=== PATIENT | female | born 1995 | race Caucasian/White ===

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

== ENCOUNTER 2018-03-24 01:55 | Emergency (ER) | payer MEDICAID ==
[~2018-03-24] VITALS: Ht 175.3 cm; Wt 70.3 kg
--- OUTSIDE RECORDS SUMMARY | 2018-03-24 02:03 | XMS REPORT ---
Author SAMEERA Kinsey [facility] Address [address] [place] [address] Care Team Providers Care Slide Attendant Name Role Phone SAMEERA GIBBS Unavailable PROBLEMS Unknown Problems ALLERGIES Unknown Allergies SOCIAL HISTORY No smoking Hx information available PLAN OF CARE VITAL SIGNS MEDICATIONS Medication Instructions Dosage Frequency Start Date End Date Duration Status PredniSONE 20 mg Orally Once a day 1 tablet 24h Jul, Jul, 05 days Active RESULTS No Results PROCEDURES No Known procedures IMMUNIZATIONS No Known Immunizations
--- OUTSIDE RECORDS SUMMARY | 2018-03-24 02:03 | XMS REPORT ---
Author Author FISH ODOM Organization [facility] Address [address] [place] [address] Care Team Providers Care Rn Clinical Quality Name Role Phone FISH ODOM Unavailable PROBLEMS Unknown Problems ALLERGIES Substance Reaction Event Type Date Status Amoxicillin Unknown Drug Allergy May, Active SOCIAL HISTORY Never Assessed PLAN OF CARE Activity Details Follow Up prn Reason: VITAL SIGNS Height 67.2 in 2016-05-30 Weight 167.4 lbs 2016-05-30 Temperature 100.2 degrees Fahrenheit 2016-05-30 Heart Rate 88 bpm 2016-05-30 Respiratory Rate 18 2016-05-30 BMI 26.06 kg/m2 2016-05-30 Blood pressure systolic 104 mmHg 2016-05-30 Blood pressure diastolic 64 mmHg 2016-05-30 MEDICATIONS Medication Instructions Dosage Frequency Start Date End Date Duration Status Intuniv 3 MG Orally Once a day 1 tablet 24h Active Azithromycin 250 MG Orally Once a day 2 tablets on the first day, then 1 tablet daily for 4 days 24h May, Jun, 5 day(s) Active Dicyclomine HCl 20 MG Orally Four times a day 1 tablet 6h Active RESULTS Name Result Date Reference Range STREP A (IN HOUSE) 2016-05-30 STREP A Positive Control + Lot # [id number] Exp date 10/2017 PROCEDURES Procedure Date Ordered Result Body Site STREP A ASSAY W/OPTIC May 30, 2016 IMMUNIZATIONS No Known Immunizations MEDICAL (GENERAL) HISTORY Type Description Date Surgical History tonsillectomy
--- OUTSIDE RECORDS SUMMARY | 2018-03-24 02:03 | XMS REPORT ---
Author Author BEAN RAMOS [facility] Address [address] [place] [address] Care Team Providers Care Service Sprinkler Helper Name Role Phone BEAN RAMOS Unavailable PROBLEMS Type Condition ICD9-CM Code RRA64-MS Code Onset Dates Condition Status SNOMED Code Problem Attention deficit disorder of childhood with hyperactivity 314.01 Active 049797602 Problem Encounter for long-term (current) use of other medications V58.69 Active 161729761 Problem MENINGOCOCCAL DX V03.89 Active Problem Acute lymphadenitis 683 Active [id number] ALLERGIES Unknown Allergies SOCIAL HISTORY No smoking Hx information available PLAN OF CARE VITAL SIGNS MEDICATIONS Unknown Medications RESULTS No Results PROCEDURES No Known procedures IMMUNIZATIONS No Known Immunizations
--- OUTSIDE RECORDS SUMMARY | 2018-03-24 02:03 | XMS REPORT ---
Author Author FABIANA YEPEZ Organization [facility] Address [address] [place] [address] Care Team Providers Care Awning Craftsperson Name Role Phone FABIANA YEPEZ Unavailable PROBLEMS Unknown Problems ALLERGIES Substance Reaction Event Type Date Status Amoxicillin Unknown Drug Allergy Mar, Active ENCOUNTERS Encounter Location Date Diagnosis [facility] [address] [address] Mar, Encounter for IUD removal Z30.432 and control counseling Z30.09 [place] [address] [address] Jul, 2016 [facility] [address] [address] May, Sore throat J02.9 and Strep throat J02.0 [facility] [address] [address] May, [facility] [address] [place] [id number] [place] [phone] Apr, Aphthous ulcer of pharynx or hypopharynx K12.0 [facility] [address] [id number] October, Encounter for immunization Z23 [facility] [address] [address] 08 Nov, 2014 Right wrist pain 719.43 [facility] [address] [address] 14 Sep, 2014 [facility] [address] [address] Sep, [facility] [address] [facility] [id number] [address] Feb, [facility] [address] [place] [id number] [address] Dec, [facility] [address] [place] [id number] [address] Dec, [facility] [address] [address] Dec, [facility] [address] [id number] [address] Nov, [facility] [address] [address] Nov, [facility] [address] [place] [id number] [address] October, [facility] [address] [id number] [address] October, IMMUNIZATIONS No Known Immunizations SOCIAL HISTORY Never Assessed REASON FOR VISIT Mile Removal- Placed by Dr. Newby in [place] in November of 2014, Pt states that she is having a lot of pain w/ her mile. States she feels like something is falling out constantly. Constant cramping. Painful intercourse. She also states that she has been having seizures ever since she had it placed. She blacks out and when she comes to her hands are stiff. PLAN OF CARE Activity Details Follow Up Needs to establish with PCP Reason: VITAL SIGNS Height 67.2 in 2017-03-13 Weight 185 lbs 2017-03-13 Temperature 98.8 degrees Fahrenheit 2017-03-13 Heart Rate 80 bpm 2017-03-13 Respiratory Rate 18 2017-03-13 BMI 28.80 kg/m2 2017-03-13 Blood pressure systolic 110 mmHg 2017-03-13 Blood pressure diastolic 70 mmHg 2017-03-13 MEDICATIONS Medication Instructions Dosage Frequency Start Date End Date Duration Status Dicyclomine HCl 20 MG Orally Four times a day 1 tablet 6h Active Ortho Tri-Cyclen Lo 0.18/0.215/0.25 MG-25 MCG Orally Once a day 1 tablet 24h Mar, 30 day(s) Active RESULTS No Results PROCEDURES Procedure Date Ordered Result Body Site REMOVE INTRAUTERINE DEVICE Mar 13, 2017 INSTRUCTIONS MEDICATIONS ADMINISTERED No Known Medications MEDICAL (GENERAL) HISTORY Type Description Date Medical History Migraines Medical History Asthma Surgical History tonsillectomy
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
[2018-03-24] MEDS ORDERED: RX-OSELTAMIVIR 75 MG (TAMIFLU) BOX OF 10 PO STA (03:06)
[2018-03-24] MEDS ORDERED: IBUPROFEN TABLET 200 MG TAB PO ONE (03:30)
--- NOTE | 2018-03-24 03:32 | ED General ---
General Chief Complaint: Fever-Adult/Adol Stated Complaint: DIZZY,BODY HURTS,POSS FEVER Nursing Triage Note: possible fever, chills, body aches, nausea since 1800 Nursing Sepsis Screen: Possible Sepsis Risk Source of Information: Patient Exam Limitations: No Limitations History of Present Illness Date Seen by Provider: Mar 24, 2018 Allergies and Home Medications Allergies Coded Allergies: amoxicillin trihydrate (Verified Allergy, Mild, 11/12/11) ibuprofen (Unverified Adverse Reaction, Unknown, 03/24/18) Aggravates IBS Past Mejjlyp-Ewkpey-Etowjs Hx Patient Social History Alcohol Use: Denies Use Recreational Drug Use: No Smoking Status: Never a Smoker 2nd Hand Smoke Exposure: No Recent Foreign Travel: No Contact w/Someone Who Travel: No Recent Infectious Disease Expo: No Recent Hopitalizations: No Immunizations Up To Date Tetanus Booster (TDap): Less than 5yrs Date of Influenza Vaccine: Apr 03, 2013 Seasonal Allergies Seasonal Allergies: No Past Medical History Surgeries: Yes Adenoidectomy, Tonsillectomy Respiratory: No Cardiac: No Neurological: Yes Headaches /Migraines : No 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 Disorders: No Female 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 Disorders: Denies 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 oz. 70.795241vl; 22.89 BMI Method:Stated Progress/Results/Core Measures Suspected Sepsis Recent Fever Within 48 Hours: Yes Infection Criteria Present: Suspected New Infection New/Unexplained Altered Menta: No Sepsis Screen: Possible Sepsis Risk SIRS Temperature:103.1 Pulse: 117 Respiratory Rate: 18 Blood Pressure 122 /85 Mean: 97 Results/Orders Lab Results Laboratory Tests Test 03/24/18 02:59 Range/Units Group A Streptococcus Screen POSITIVE H NEGATIVE Micro Results Microbiology 03/24/18 Influenza Types A,B Antigen (AMPARO) - Final, Complete My Orders Orders - NELLY ESTRELLA MD Influenza A And B Antigens (03/24/18 02:15) Rx-Oseltamivir Caps (Rx-Tamiflu Caps) (03/24/18 03:06) Rapid Strep A Screen (03/24/18 03:20) Ibuprofen Tablet (Motrin Tablet) (03/24/18 03:30) Azithromycin Tablet (Zithromax Tablet) (03/24/18 03:45) Vital Signs/I&O 03/24/18 02:10 Temp 103.1 Pulse 117 Resp 18 B/P (MAP) 122/85 (97) Pulse Ox 97 O2 Delivery Room Air Capillary Refill : Less Than 3 Seconds Blood Pressure Mean: 97 Departure Impression Primary Impression: Flu-like symptoms Additional Impressions: Fever Qualified Codes: R50.81 - Fever presenting with conditions classified elsewhere Strep pharyngitis Disposition: 01 HOME, SELF-CARE Condition: Improved Departure-Patient Inst. Decision time for Depature: 03:29 Referrals: [facility] (PCP/Family) Primary Care Physician Patient Instructions: Flu Add. Discharge Instructions: Drink plenty of clear liquids. Take ibuprofen up to 600 mg every 6 hours as needed for pain or fever. Add Tylenol (acetaminophen) up to 1000 mg every 6 hours as needed for additional pain or fever relief. You may continue breast-feeding. When you feed or hold the baby, wear a mask and exercise frequent hand sanitation until you are free of fever for at least 24 hours. Finish all 10 doses of the Tamiflu. Return to care if symptoms are worsening or if you are not improving as expected over the next couple of days. For treatment of your strep throat complete the azithromycin as prescribed. Take your next dose on Saturday. Dispose of or sanitize toothbrush and any other oral instruments before the fourth dose of antibiotics. All discharge instructions reviewed with patient and/or family. Voiced understanding. Scripts Azithromycin (Azithromycin) 250 Mg Tablet 250 MG PO DAILY, #4 TAB Prov: NELLY ESTRELLA MD 03/24/18 NELLY ESTRELLA MD Mar 24, 2018 03:32
[2018-03-24] MEDS ORDERED: AZITHROMYCIN 250 MG TAB (ZITHROMAX) PO ONE (03:45)
[2018-03-24] MEDS ORDERED: AZIT250T12 PO (03:45)
[2018-03-24 03:46] VITALS: BP 121/78
== END 2018-03-24 03:51 | disposition home or self-care (01) ==
LOC: EDUNIT# 01:55 → ER 02:00
DX: J10.1 Influenza due to other identified influenza virus with other respiratory manifestations (principal); J02.0 Streptococcal pharyngitis; G43.909 Migraine, unspecified, not intractable, without status migrainosus; F90.9 Attention-deficit hyperactivity disorder, unspecified type; Z97.5 Presence of (intrauterine) contraceptive device; Z87.19 Personal history of other diseases of the digestive system; Z88.0 Allergy status to penicillin; Z88.6 Allergy status to analgesic agent; Z90.89 Acquired absence of other organs
CPT/HCPCS: 87430; 87804

== ENCOUNTER 2018-09-14 16:48 | Emergency (ER) | payer MEDICAID ==
[~2018-09-14] VITALS: Ht 172.7 cm; Wt 72.6 kg
[~2018-09-14 16:48] MED LIST changes: +AZIT250T12 PO
--- NOTE | 2018-09-14 17:07 | ED EENT ---
History of Present Illness General Chief Complaint: Eye Problems Stated Complaint: L EYE SWELLING Source: patient Exam Limitations: no limitations History of Present Illness Date Seen by Provider: Sep 14, 2018 Time Seen by Provider: 17:04 Initial Comments 22-year-old female who presents to emergency room with complaints of a bump on her right upper eyelid. She reports that she woke up with this morning. She has tried teabags to the eye but reports this is worse in the swelling. Denies fevers. Denies visual difficulty. Allergies and Home Medications Allergies Coded Allergies: amoxicillin trihydrate (Verified Allergy, Mild, 11/12/11) ibuprofen (Unverified Adverse Reaction, Unknown, 03/24/18) Aggravates IBS Home Medications Azithromycin 250 Mg Tablet, 250 MG PO DAILY Prescribed by: NELLY ABRAHAM on 03/24/18 0345 Past Xcblznr-Xtwhmt-Maupro Hx Patient Social History Alcohol Use: Denies Use Recreational Drug Use: No Smoking Status: Never a Smoker 2nd Hand Smoke Exposure: No Recent Foreign Travel: No Contact w/Someone Who Travel: No Recent Hopitalizations: No Immunizations Up To Date Tetanus Booster (TDap): Less than 5yrs Date of Influenza Vaccine: Apr 03, 2013 Seasonal Allergies Seasonal Allergies: No Past Medical History Surgeries: Yes Adenoidectomy, Tonsillectomy Respiratory: No Cardiac: No Neurological: Yes Headaches /Migraines 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 Disorders: No Female 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 Disorders: 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 oz. 70.183786jr; 22.89 BMI Method:Stated Departure Impression Primary Impression: Hordeolum Qualified Codes: H00.011 - Hordeolum externum right upper eyelid Disposition: 01 HOME, SELF-CARE Condition: Stable/Unchanged Departure-Patient Inst. Decision time for Depature: 17:05 Referrals: [facility] (PCP/Family) Primary Care Physician Patient Instructions: Jonathan (Hordeolum) Add. Discharge Instructions: Use the ophthalmic antibiotic to the right eye 4 times a day for 5 days. Apply warm moist compresses to the eye and massage the area to allow to drain. Practice good hand hygiene. Follow-up with your primary care provider within 1 week for recheck. Return back to the emergency room for worsening symptoms or concerns as needed. All discharge instructions reviewed with patient and/or family. Voiced understanding. SYLWIA SEXTON Sep 14, 2018 17:06
[2018-09-14] MEDS ORDERED: ERYTHROMYCIN OPHTH OINT 1 GM (SINGLE USE) TUBE ONE (17:16)
[2018-09-14 17:27] VITALS: BP 122/70
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
[2018-09-14] MEDS ORDERED: ERYTHROMYCIN OPHTH OINT 1 GM (SINGLE USE) TUBE OP SCH (22:00)
== END 2018-09-14 17:25 | disposition home or self-care (01) ==
LOC: EDUNIT# 16:48 → ER 16:49
DX: H00.011 Hordeolum externum right upper eyelid (principal); G43.909 Migraine, unspecified, not intractable, without status migrainosus; K58.9 Irritable bowel syndrome, unspecified; F98.8 Other specified behavioral and emotional disorders with onset usually occurring in childhood and adolescence; F90.9 Attention-deficit hyperactivity disorder, unspecified type; Z87.19 Personal history of other diseases of the digestive system; Z97.5 Presence of (intrauterine) contraceptive device; Z88.6 Allergy status to analgesic agent; Z88.0 Allergy status to penicillin; Z90.89 Acquired absence of other organs
CPT/HCPCS: 99282

== ENCOUNTER 2020-03-14 17:03 | Emergency (ER) | payer MEDICAID ==
[~2020-03-14] VITALS: Ht 175 cm; Wt 90.7 kg
--- NOTE | 2020-03-14 17:29 | ED Integumentary General ---
General Chief Complaint: Rect Problems Stated Complaint: RECTAL ABSCESS Source: patient Exam Limitations: no limitations History of Present Illness Date Seen by Provider: Mar 14, 2020 Time Seen by Provider: 17:28 Initial Comments Abscess to the left perirectal region for the past 3-4 days no fevers or chills. Has been to health care provider twice for this and told to come back in 2 weeks for incision and drainage she states. On bactrim Timing/Duration: just prior to arrival Severity: moderate Associated Symptoms: denies symptoms Allergies and Home Medications Allergies Coded Allergies: amoxicillin trihydrate (Verified Allergy, Mild, 11/12/11) ibuprofen (Unverified Adverse Reaction, Unknown, 03/24/18) Aggravates IBS Home Medications Azithromycin 250 Mg Tablet, 250 MG PO DAILY Prescribed by: NELLY ABRAHAM on 03/24/18 3331 Patient Home Medication List Home Medication List Reviewed: Yes Review of Systems Review of Systems Constitutional: see HPI; No chills, No fever EENTM: see HPI Respiratory: no symptoms reported Cardiovascular: no symptoms reported 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: no symptoms reported Musculoskeletal: no symptoms reported Skin: see HPI Psychiatric/Neurological: No Symptoms Reported Past Qgasmap-Wrbnyw-Hygjca Hx Patient Social History 2nd Hand Smoke Exposure: No Recent Foreign Travel: No Contact w/Someone Who Travel: No Recent Hopitalizations: No Immunizations Up To Date Tetanus Booster (TDap): Less than 5yrs Date of Influenza Vaccine: Apr 03, 2013 Seasonal Allergies Seasonal Allergies: No Past Medical History Surgeries: Yes Adenoidectomy, Tonsillectomy Respiratory: No Cardiac: No Neurological: Yes Headaches /Migraines 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 Disorders: No Female 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 Disorders: Denies 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 Sexually Transmitted Disease: No 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: No Gastrointestinal: Yes Chronic Constipation, Irritable Bowel Musculoskeletal: Yes (CHRONIC PAIN IN R ANKLE) Endocrine: No HEENT: No Cancer: No Psychosocial: Yes ADD/ADHD Integumentary: No Blood Disorders: No Physical Exam Vital Signs Vital Signs - First Documented 03/14/20 17:28 Temp 37.8 Pulse 114 Resp 20 B/P (MAP) 132/84 (100) Pulse Ox 97 Capillary Refill : General Appearance: WD/WN, no apparent distress Neck: non-tender, full range of motion Respiratory: no respiratory distress, no accessory muscle use Neurologic/Psychiatric: alert, normal mood/affect, oriented x 3, abnormal cer ebellar tests Skin: normal color, warm/dry Skin Problem Location: other (left perianal fluctuant abscess) Skin Problem Character: abscess Progress/Results/Core Measures Results/Orders My Orders Orders - FAMILIA DALTON APRN Wound Culture (03/14/20 17:26) Hydrocodone/Apap 5/325 Tablet (Lortab 5 (03/14/20 17:30) Lidocaine/Epi 2% 1:100,000 (Xylocaine/Ep (03/14/20 17:30) Ceftriaxone For Im Use (Rocephin For Im (03/14/20 17:30) Metronidazole Tablet (Flagyl Tablet) (03/14/20 17:30) Lidocaine 1% Inj 20 Ml (Xylocaine 1% Inj (03/14/20 17:30) Vital Signs/I&O 03/14/20 17:28 Temp 37.8 Pulse 114 Resp 20 B/P (MAP) 132/84 (100) Pulse Ox 97 Departure Communication (Admissions) Area was anesthetized with 1% lidocaine with epinephrine. Incision was then made with 11 blade scalpel. Large amount of purulent terribly foul smelling material was expressed. Loculations were broken up with curved hemostats. Impression Primary Impression: Perianal abscess Disposition: HOME, SELF-CARE Condition: Stable Departure-Patient Inst. Decision time for Depature: 17:49 Referrals: [facility] [place] (PCP/Family) Primary Care Physician S[facility]A TAFOYA BRETT D DO KIDO, TAKAAKI MD Patient Instructions: Anal Abscess and Fistula Add. Discharge Instructions: 1. Add the metronidazole antibiotic to the trimethoprim/sulfamethoxazole antibiotic that you are already on. Take the pain medication as directed and the stool softener as directed. All discharge instructions reviewed with patient and/or family. Voiced understa nding. Scripts Docusate Sodium (Colace) 100 Mg Capsule 100 MG PO BID, #30 CAP Prov: FAMILIA DALTON APRN 03/14/20 Metronidazole (Metronidazole) 500 Mg Tablet 500 MG PO TID, #21 TAB 0 Refills Prov: FAMILIA DALTON APRN 03/14/20 FAMILIA DALTON APRN Mar 14, 2020 17:29
[2020-03-14] MEDS ORDERED: metroNIDAZOLE 500 MG (FLAGYL) TAB PO ONE (17:30)
[2020-03-14] MEDS ORDERED: LIDOCAINE/EPI 2% 1:100,00 (XYLOCAINE) 20 ML VIAL INJ ONE (17:30)
[2020-03-14] MEDS ORDERED: HYDROcodone/APAP 5 MG/325 MG (LORTAB) TAB PO ONE (17:30)
[2020-03-14] MEDS ORDERED: cefTRIAXone 1,000 MG/2.86 ml vial (IM ONLY) IM SCH (17:30)
[2020-03-14] MEDS ORDERED: LIDOCAINE 1% INJ 20 ML 20 ML VIAL INJ ONE (17:30)
[2020-03-14] MEDS ORDERED: METR-145 PO (17:51)
[2020-03-14] MEDS ORDERED: HYDR-3870 PO (17:51)
[2020-03-14] MEDS ORDERED: DOCU-143 PO (17:51)
[2020-03-14 18:15] VITALS: BP 132/71
== END 2020-03-14 18:15 | disposition home or self-care (01) ==
LOC: EDUNIT# 17:03 → ER 17:04
DX: K61.0 Anal abscess (principal); Z88.1 Allergy status to other antibiotic agents; Z88.6 Allergy status to analgesic agent
CPT/HCPCS: 87070; 87077; 87205; 99284

== ENCOUNTER 2021-01-02 21:37 | Emergency (ER) | payer MEDICAID ==
[~2021-01-02] VITALS: Ht 175 cm; Wt 112.0 kg
[~2021-01-02 21:37] MED LIST changes: +DOCU-143 PO; +HYDR-3870 PO; +METR-145 PO
[2021-01-02 21:48] VITALS: BP 129/77
[2021-01-02] MEDS ORDERED: NORE0.3520 (21:52)
--- NOTE | 2021-01-02 22:08 | ED Lower Extremity ---
General Chief Complaint: Laceration Stated Complaint: L FOOT LAC Nursing Triage Note: SKIN AVULSION TO LEFT HEEL, CAUGHT ON DOOR. Source: patient Exam Limitations: no limitations (FAMILIA DALTON APRN) History of Present Illness Date Seen by Provider: Jan 02, 2021 Time Seen by Provider: 22:06 Initial Comments scraped back of left heel on door at [facility]. tdap not up to date Onset: just prior to arrival Severity: mild Pain/Injury Location: left ankle Method of Injury: unknown Modifying Factors: Worse With Movement (FAMILIA DALTON APRN) Allergies and Home Medications Allergies Coded Allergies: amoxicillin trihydrate (Verified Allergy, Mild, 11/12/11) ibuprofen (Unverified Adverse Reaction, Unknown, 03/24/18) Aggravates IBS Patient Home Medication List Home Medication List Reviewed: Yes (FAMILIA DALTON APRN) Review of Systems Constitutional: see HPI EENTM: see HPI Respiratory: no symptoms reported Cardiovascular: no symptoms reported 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: no symptoms reported Musculoskeletal: see HPI Skin: no symptoms reported Psychiatric/Neurological: No Symptoms Reported (FAMILIA DALTON APRN) Past Nvysdlj-Clamoc-Oqjggs Hx Patient Social History Tobacco Use?: No Substance use?: No Alcohol Use?: No Pt feels they are or have been: No (FAMILIA DALTON APRN) Immunizations Up To Date Tetanus Booster (TDap): Less than 5yrs (FAMILIA DALTON APRN) Seasonal Allergies Seasonal Allergies: No (FAMILIA DALTON APRN) Past Medical History Surgery/Hospitalization HX: T/A Surgeries: Yes Adenoidectomy, Tonsillectomy Respiratory: No Cardiac: No Neurological: Yes Headaches /Migraines 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 Disorders: No Female 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 Disorders: Denies 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 oz. 72.139184gh; 36.00 BMI Method:Stated General Appearance: WD/WN, no apparent distress HEENT: PERRL/EOMI, normal ENT inspection Neck: non-tender, full range of motion Respiratory: no respiratory distress, no accessory muscle use Hips: bilateral hip non-tender, bilateral hip normal inspection, bilateral hip normal range of motion Legs: bilateral leg non-tender, bilateral leg normal inspection, bilateral leg normal range of motion Knees: bilateral knee non-tender, bilateral knee normal inspection, bilateral knee normal range of motion Ankles: bilateral ankle non-tender, bilateral ankle normal inspection, bilateral ankle normal range of motion Feet: bilateral foot non-tender, bilateral foot normal inspection, bilateral foot normal range of motion Neurologic/Psychiatric: alert, normal mood/affect, oriented x 3 Skin: normal color, warm/dry minor abrasion left heel (FAMILIA DALTON APRN) Progress/Results/Core Measures Results/Orders Medications Given in ED Current Medications Medications Dose Ordered Sig/Lety Route Start Time Stop Time Status Last Admin Dose Admin Diphtheria/ Tetanus/Acell Pertussis 0.5 ml ONCE ONCE IM 01/02/21 22:15 01/02/21 22:16 DC 01/02/21 22:10 0.5 ML (NELLY ESTRELLA MD) Vital Signs/I&O 01/02/21 21:48 Temp 36.5 Pulse 89 Resp 18 B/P (MAP) 129/77 (94) Pulse Ox 98 O2 Delivery Room Air (NELLY ESTRELLA MD) Blood Pressure Mean: 94 Departure Impression Primary Impression: Abrasion Disposition: 01 HOME, SELF-CARE Condition: Stable Departure-Patient Inst. Decision time for Depature: 22:08 (FAMILIA DALTON APRN) Referrals: [facility] [place] (PCP/Family) Primary Care Physician Patient Instructions: Skin Abrasions ATTENDING PHYSICIAN NOTE: I was physically present as attending physician in the emergency department during the care of this patient, but I was not directly involved in the decision making or delivery of care for this patient. (NELLY ESTRELLA MD) FAMILIA DALTON APRN Jan 02, 2021 22:08 NELLY ESTRELLA MD Jan 03, 2021 06:37
[2021-01-02] MEDS ORDERED: TETANUS,DIPTH,PERTUSS P/F (BOOSTRIX) 0.5 ML VIAL IM ONE (22:15)
== END 2021-01-02 22:21 | disposition home or self-care (01) ==
LOC: EDUNIT# 21:37 → ER 21:38
DX: S90.812A Abrasion, left foot, initial encounter (principal); Z23 Encounter for immunization; W23.0XXA Caught, crushed, jammed, or pinched between moving objects, initial encounter
CPT/HCPCS: 90715

== ENCOUNTER 2021-05-21 18:34 | Emergency (ER) | payer MEDICAID ==
[~2021-05-21] VITALS: Ht 172.7 cm; Wt 113.0 kg
[~2021-05-21 18:34] MED LIST changes: +NORE0.3520 PO
[2021-05-21 19:40] VITALS: BP 123/92
--- NOTE | 2021-05-21 20:16 | ED Cough/URI ---
General Chief Complaint: Cough/Cold/Flu Symptoms Stated Complaint: COUGH/FEVER Nursing Triage Note: PT AMB TO RM 6 W REPORTS OF N/V/D, COUGH, AND CONGESTION. PT A&OX4. Source: patient History of Present Illness Date Seen by Provider: May 21, 2021 Time Seen by Provider: 19:30 Initial Comments PT ARRIVES VIA POV FROM HOME WITH MULTIPLE FAMILY MEMBERS, ALL BEING SEEN FOR SAME ALL BEGAN GETTING SICK AROUND THE SAME TIME PT'S MOTHER IS ALSO HERE, BUT IS NOT BEING SEEN PT, HER 3 Y.O. CHILD AND 21 Y.O. SISTER ALL LIVE IN SAME HOME, ALONG WITH MOM AND MOM'S FEMALE FRIEND + SECOND HAND SMOKE PT BEGAN HAVING SYMPTOMS 2 DAYS AGO C/O COUGH AND CONGESTION ALOT OF NASAL CONGESTION AND CLEAR RUNNY NOSE C/O NAUSEA, NO VOMITING--HAS BEEN EATING AND DRINKING, AND VOIDING NORMALLY C/O DIARRHEA X 3 TODAY C/O SLIGHT BODY ACHES C/O SLIGHT HEADACHE NO KNOWN FEVER NO SORE THROAT NO LOSS OF TASTE OR SMELL NO SHORTNESS OF BREATH HAS NOT TAKEN ANYTHING FOR SYMPTOMS DENIES CHRONIC ILLNESS LMP--1 MONTH AGO, NORMAL. ON OCP'S PT STATES SHE HAS BEEN VACCINATED FOR COVID-19, BUT OTHER FAMILY MEMBERS REPORT THAT PT IS NOT VACCINATED-- THE MOTHER IS THE ONLY ONE WHO HAS BEEN VACCINATED MULTIPLE PEOPLE ALL GOT TOGETHER YESTERDAY, DESPITE MULTIPLE PEOPLE BEING ILL. NONE OF THE OTHERS ARE VACCINATED, AND NO MASKS WERE WORN PCP: [facility] Allergies and Home Medications Allergies Coded Allergies: amoxicillin trihydrate (Verified Allergy, Mild, 11/12/11) ibuprofen (Unverified Adverse Reaction, Unknown, 03/24/18) Aggravates IBS Patient Home Medication List Home Medication List Reviewed: Yes Norethindrone (Norethindrone) 0.35 Mg Tablet, (Reported) Entered as Reported by: ERICH SHARMA on 01/02/212151 Ondansetron (Ondansetron Odt) 4 Mg Tab.rapdis, 4 MG PO Q4H Prescribed by: BRIANNE RUVALCABA on 05/21/212053 Review of Systems Review of Systems Constitutional: no symptoms reported EENTM: see HPI, nose congestion Respiratory: see HPI, cough; No short of breath Cardiovascular: no symptoms reported Gastrointestinal: see HPI; No abdominal pain; diarrhea, nausea; No vomiting 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: no symptoms reported Musculoskeletal: see HPI (BODY ACHES) Skin: no symptoms reported Psychiatric/Neurological: See HPI, Headache Hematologic/Lymphatic: No Symptoms Reported Immunological/Allergic: no symptoms reported Past Lgzzsql-Nspbyp-Kskpuq Hx Patient Social History Tobacco Use?: No Use of E-Cig and/or Vaping dev: No Substance use?: No Alcohol Use?: No Immunizations Up To Date Tetanus Booster (TDap): Less than 5yrs Influenza Vaccine Up-to-Date: Yes; Up-to-Date First/Initial COVID19 Vaccinat: 2020 Second COVID19 Vaccination Clint: 2020 COVID19 Vaccine 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: [employer] Seasonal Allergies Seasonal Allergies: No Past Medical History Surgery/Hospitalization HX: T/A Surgeries: Yes Adenoidectomy, Tonsillectomy Respiratory: No Cardiac: No Neurological: Yes Headaches /Migraines Last Menstrual Period: Apr 26, 2021 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 Disorders: No Female 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 Disorders: Denies Sexually Transmitted Disease: No 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: No Gastrointestinal: Yes Chronic Constipation, Irritable Bowel Musculoskeletal: Yes (CHRONIC PAIN IN R ANKLE) Endocrine: No HEENT: Yes (S/P TONSILLECTOMY) Cancer: No Psychosocial: Yes ADD/ADHD Integumentary: No Blood Disorders: No Physical Exam Vital Signs - First Documented 05/21/21 19:40 Temp 36.4 Pulse 81 Resp 20 B/P (MAP) 123/92 (102) Pulse Ox 99 O2 Delivery Room Air Capillary Refill : Less Than 3 Seconds Height: 5'8.00" Weight: 160lbs. oz. 72.246607gq; 37.00 BMI Method:Stated General Appearance: WD/WN, no apparent distress HEENT: PERRL/EOMI, TMs normal, pharynx normal, other (NASAL CONGESTION AND CLEAR RHINORRHEA) Neck: normal inspection Respiratory: normal breath sounds, no respiratory distress, no accessory muscle use Cardiovascular: regular rate, rhythm, no murmur Gastrointestinal: soft Extremities: normal inspection Neurologic/Psychiatric: manager ccu II-XII nml as tested, no motor/sensory deficits, alert, normal mood/affect, oriented x 3 Skin: normal color, warm/dry Progress/Results/Core Measures Suspected Sepsis SIRS Temperature: Pulse: 81 Respiratory Rate: 20 Blood Pressure 123 /92 Mean: 102 Results/Orders Lab Results Laboratory Tests Test 05/21/21 19:48 Range/Units Influenza Type A (RT-PCR) Not Detected Not Detecte Influenza Type B (RT-PCR) Not Detected Not Detecte SARS-CoV-2 RNA (RT-PCR) Detected H Not Detecte My Orders Orders - BRIANNE RUVALCABA DO Influenza A And B By Pcr (05/21/21 19:46) Covid 19 Inhouse Test (05/21/21 19:46) Vital Signs/I&O 05/21/21 05/21/21 19:40 20:59 Temp 36.4 36.4 Pulse 81 79 Resp 20 18 B/P (MAP) 123/92 (102) Pulse Ox 99 100 O2 Delivery Room Air Room Air Capillary Refill : Less Than 3 Seconds Blood Pressure Mean: 102 Progress Note : Progress Note PLACED IN ISOLATION ROOM PPE WORN AT ALL TIMES COVID-19 TESTING PERFORMED SISTER HAS TESTED + FOR COVID-19 HERE IN ER [facility], HAS HER 3 Y.O. CHILD PT AND FAMILY ADVISED OF NEED FOR QUARANTINE FOR 2 WEEKS NO COUGH NO DYSPNEA NO FEVER NO HYPOXIA NO NAUSEA OR VOMITING OR DIARRHEA PT IS NOT A CANDIDATE FOR MAB AT THIS TIME, DUE TO YOUNG AGE, VERY MILD SYMPTOMS, NO CO-MORBID CONDITIONS OTHER THAN OBESITY. Departure Impression Primary Impression: COVID-19 virus infection Disposition: 01 HOME, SELF-CARE Condition: Stable Departure-Patient Inst. Decision time for Depature: 20:52 Referrals: [facility] (PCP/Family) Primary Care Physician Patient Instructions: COVID-19 (DC), Preventing the Spread of an Infectious Disease Add. Discharge Instructions: TYLENOL AND MOTRIN NEEDED FOR PAIN OR FEVER OVER THE COUNTER MEDICATIONS FOR COUGH AND CONGESTION LOTS OF CLEAR LIQUIDS--WATER, BROTH, JELLO, GATORADE BRATS DIET--BANANAS, RICE, APPLESAUCE, TOAST, SALTINES FOLLOW UP WITH [facility] NEEDED QUARANTINE YOURSELF AND ALL HOUSEHOLD AND CLOSE CONTACTS FOR 2 WEEKS All discharge instructions reviewed with patient and/or family. Voiced understanding. Scripts Ondansetron (Ondansetron Odt) 4 Mg Tab.rapdis 4 MG PO Q4H for Nausea/Vomiting, #10 TAB Prov: BRIANNE RUVALCABA DO 05/21/21 BRIANNE RUVALCABA DO May 21, 2021 20:16
[2021-05-21] MEDS ORDERED: ONDA4TAB11 PO (20:54)
== END 2021-05-21 21:02 | disposition home or self-care (01) ==
LOC: EDUNIT# 18:34 → ER 18:36
DX: U07.1 COVID-19 (principal)
CPT/HCPCS: 87636; 99283

== ENCOUNTER 2021-05-23 16:22 | Emergency (ER) | payer MEDICAID ==
[~2021-05-23] VITALS: Ht 172.7 cm; Wt 107.0 kg
[~2021-05-23 16:22] MED LIST changes: +ONDA4TAB11 PO
--- NOTE | 2021-05-23 16:44 | ED General ---
General Stated Complaint: COVID POSITIVE - VOMITING Source of Information: Patient Exam Limitations: No Limitations (FAMILIA DALTON APRN) History of Present Illness Date Seen by Provider: May 23, 2021 Time Seen by Provider: 16:40 Initial Comments To ER with c/o uncontrollable nausea and vomiting since 05/21/2021. That was also the first day of symptoms. She was seen here at that time and has been given oral antiemetics but denies any improvement with these. No fevers or shortness of breath. Not vaccinated. Timing/Duration: 1-2 Days Severity: Moderate Associated Systoms: Nausea/Vomiting (FAMILIA DALTON APRN) Allergies and Home Medications Allergies Coded Allergies: amoxicillin trihydrate (Verified Allergy, Mild, 11/12/11) ibuprofen (Unverified Adverse Reaction, Unknown, 03/24/18) Aggravates IBS Patient Home Medication List Home Medication List Reviewed: Yes (FAMILIA DALTON APRN) Norethindrone (Norethindrone) 0.35 Mg Tablet, (Reported) Entered as Reported by: ERICH SHARMA on 01/02/212151 Ondansetron (Ondansetron Odt) 4 Mg Tab.rapdis, 4 MG PO Q4H Prescribed by: BRIANNE RUVALCABA on 05/21/212053 Promethazine HCl (Promethazine Tablet) 25 Mg Tablet, 25 MG PO Q8H PRN for NAUSEA/VOMITING Prescribed by: FAMILIA DALTON on 05/23/21 1848 Review of Systems Review of Systems Constitutional: see HPI EENTM: see HPI Respiratory: no symptoms reported Cardiovascular: no symptoms reported Gastrointestinal: nausea, vomiting 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: no symptoms reported Musculoskeletal: no symptoms reported Skin: no symptoms reported Psychiatric/Neurological: No Symptoms Reported Hematologic/Lymphatic: No Symptoms Reported (FAMILIA DALTON APRN) Past Paedtvp-Uqrrsl-Gfzpyl Hx Immunizations Up To Date Tetanus Booster (TDap): Less than 5yrs First/Initial COVID19 Vaccinat: 2020 Second COVID19 Vaccination Clint: 2020 (FAMILIA DALTON APRN) Seasonal Allergies Seasonal Allergies: No (FAMILIA DALTON APRN) Past Medical History Surgery/Hospitalization HX: T/A Surgeries: Yes Adenoidectomy, Tonsillectomy Respiratory: No Cardiac: No Neurological: Yes Headaches /Migraines 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 Disorders: No Female 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 Disorders: Denies Sexually Transmitted Disease: No 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: No Gastrointestinal: Yes Chronic Constipation, Irritable Bowel Musculoskeletal: Yes (CHRONIC PAIN IN R ANKLE) Endocrine: No HEENT: Yes (S/P TONSILLECTOMY) Cancer: No Psychosocial: Yes ADD/ADHD Integumentary: No Blood Disorders: No (FAMILIA DALTON APRN) Physical Exam Vital Signs Vital Signs - First Documented 05/23/21 16:28 Temp 37.0 Pulse 71 Resp 22 B/P (MAP) 137/85 (102) Pulse Ox 97 O2 Delivery Room Air (NELLY ESTRELLA MD) Vital Signs Capillary Refill : (FAMILIA DALTON APRN) Height, Weight, BMI Height: 5'8.00" Weight: 160lbs. oz. [id number]; 37.00 BMI Method:Stated General Appearance: No Apparent Distress, WD/WN, Other (Alert and oriented no distress no accessory muscle use for breathing. Oxygen 97% room air heart rate 69 blood pressure 137/85.) Eyes: Bilateral Eye Normal Inspection, Bilateral Eye PERRL, Bilateral Eye EOMI HEENT: PERRL/EOMI, TMs Normal Respiratory: No Accessory Muscle Use, No Respiratory Distress Cardiovascular: Regular Rate, Rhythm, Normal Peripheral Pulses Gastrointestinal: Normal Bowel Sounds, Non Tender, Soft Extremity: Normal Capillary Refill, Normal Inspection Neurologic/Psychiatric: Alert, Oriented x3 Skin: Normal Color, Warm/Dry (FAMILIA DALTON APRN) Progress/Results/Core Measures Suspected Sepsis SIRS Temperature: Pulse: Respiratory Rate: Laboratory Tests 05/23/21 16:40: White Blood Count 7.2 Blood Pressure / Mean: Laboratory Tests 05/23/21 16:40: Creatinine 0.89, Platelet Count 290, Total Bilirubin 0.5 (FAMILIA DALTON APRN) Results/Orders Lab Results Laboratory Tests Test 05/23/21 16:40 05/23/21 17:28 Range/Units White Blood Count 7.2 4.3-11.0 10^3/uL Red Blood Count 5.10 3.80-5.11 10^6/uL Hemoglobin 14.4 11.5-16.0 g/dL Hematocrit 44 35-52 % Mean Corpuscular Volume 87 80-99 fL Mean Corpuscular Hemoglobin 28 25-34 pg Mean Corpuscular Hemoglobin Concent 33 32-36 g/dL Red Cell Distribution Width 12.8 10.0-14.5 % Platelet Count 290 130-400 10^3/uL Mean Platelet Volume 10.4 9.0-12.2 fL Immature Granulocyte % (Auto) 0 % Neutrophils (%) (Auto) 82 H 42-75 % Lymphocytes (%) (Auto) 13 12-44 % Monocytes (%) (Auto) 4 0-12 % Eosinophils (%) (Auto) 0 0-10 % Basophils (%) (Auto) 0 0-10 % Neutrophils # (Auto) 5.9 1.8-7.8 10^3/uL Lymphocytes # (Auto) 1.0 1.0-4.0 10^3/uL Monocytes # (Auto) 0.3 0.0-1.0 10^3/uL Eosinophils # (Auto) 0.0 0.0-0.3 10^3/uL Basophils # (Auto) 0.0 0.0-0.1 10^3/uL Immature Granulocyte # (Auto) 0.0 0.0-0.1 10^3/uL Sodium Level 142 135-145 MMOL/L Potassium Level 3.2 L 3.6-5.0 MMOL/L Chloride Level 103 98-107 MMOL/L Carbon Dioxide Level 25 21-32 MMOL/L Anion Gap 14 5-14 MMOL/L Blood Urea Nitrogen 8 7-18 MG/DL Creatinine 0.89 0.60-1.30 MG/DL Estimat Glomerular Filtration Rate 79 BUN/Creatinine Ratio 9 Glucose Level 113 H 70-105 MG/DL Calcium Level 9.5 8.5-10.1 MG/DL Corrected Calcium 8.5-10.1 MG/DL Total Bilirubin 0.5 0.1-1.0 MG/DL Aspartate Amino Transf (AST/SGOT) 43 H 5-34 U/L Alanine Aminotransferase (ALT/SGPT) 55 0-55 U/L Alkaline Phosphatase 64 40-136 U/L Total Protein 8.0 6.4-8.2 GM/DL Albumin 4.7 H 3.2-4.5 GM/DL Serum Test, Qualitative NEGATIVE NEGATIVE Urine Color DARK YELLOW Urine Clarity SL CLOUDY Urine pH 6.0 5-9 Urine Specific [place] >=1.030 1.016-1.022 Urine Protein 1+ H NEGATIVE Urine Glucose (UA) NEGATIVE NEGATIVE Urine Ketones 3+ H NEGATIVE Urine Nitrite NEGATIVE NEGATIVE Urine Bilirubin 2+ H NEGATIVE Urine Urobilinogen 0.2 < = 1.0 MG/DL Urine Leukocyte Esterase 2+ H NEGATIVE Urine RBC (Auto) NEGATIVE NEGATIVE Urine RBC NONE /HPF Urine WBC 5-10 H /HPF Urine Squamous Epithelial Cells 10-25 H /HPF Urine Renal Epithelial Cells NONE /HPF Urine Crystals PRESENT H /LPF Urine Amorphous Sediment FEW DANIELA URATES H /LPF Urine Bacteria LARGE H /HPF Urine Casts NONE /LPF Urine Mucus LARGE H /LPF Urine Culture Indicated YES (NELLY ESTRELLA MD) Micro Results Microbiology 05/23/21 Urine Culture - Final, Complete 3 or more isolates Strep, Beta Hemolytic Group B (NELLY ESTRELLA MD) Vital Signs/I&O 05/23/21 05/23/21 16:28 19:00 Temp 37.0 Pulse 71 85 Resp 22 20 B/P (MAP) 137/85 (102) 109/73 Pulse Ox 97 97 O2 Delivery Room Air Room Air (NELLY ESTRELLA MD) Vital Signs/I&O Capillary Refill : (FAMILIA DALTON APRN) Departure Communication (Admissions) I discussed the use of monoclonal antibody infusion, emergency use authorization by FDA, benefits of treatment and alternatives to treatment with this. She would like to proceed with getting it. Ill arrange to have that scheduled. (FAMILIA DALTON APRN) Impression Primary Impression: COVID-19 virus infection Additional Impression: Nausea & vomiting Disposition: 01 HOME, SELF-CARE Condition: Stable Departure-Patient Inst. Decision time for Depature: 18:48 (FAMILIA DALTON APRN) Referrals: [facility] [place]) Primary Care Physician Patient Instructions: COVID-19 ED Add. Discharge Instructions: 1. Hospital pharmacy department will call you to schedule the antibody infusion. Use your ondansetron at home in addition to the prescribed medication tonight which will be promethazine. Scripts Promethazine HCl (Promethazine Tablet) 25 Mg Tablet 25 MG PO Q8H PRN for NAUSEA/VOMITING, #14 TAB 0 Refills Prov: FAMILIA DALTON APRN 05/23/21 ATTENDING PHYSICIAN NOTE: I was physically present as attending physician in the emergency department during the care of this patient, but I was not directly involved in the decision making or delivery of care for this patient. (NELLY ESTRELLA MD) FAMILIA DALTON APRN May 23, 2021 16:44 NELLY ESTRELLA MD May 24, 2021 23:49
[2021-05-23] MEDS ORDERED: PROMETHAZINE INJ 25 MG/ML (PHENERGAN) AMP IVP ONE (16:45)
[2021-05-23] MEDS ORDERED: NS IV 1000 ML 1,000 ML IV SCH (16:45)
[2021-05-23 16:48] LABS: BASOPHILS % (AUTO) 0 % (0-10); EOSINOPHILS % (AUTO) 0 % (0-10); HEMATOCRIT 44 % (35-52); HEMOGLOBIN 14.4 g/dL (11.5-16.0); LYMPHOCYTES % (AUTO) 13 % (12-44); MEAN CORPUSCULAR HEMOGLOBIN 28 pg (25-34); MEAN CORPUSCULAR HGB CONC 33 g/dL (32-36); MEAN CORPUSCULAR VOLUME 87 fL (80-99); MEAN PLATELET VOLUME 10.4 fL (9.0-12.2); MONOCYTES # (AUTO) 0.3 10^3/uL (0.0-1.0); MONOCYTES % (AUTO) 4 % (0-12); NEUTROPHILS # (AUTO) 5.9 10^3/uL (1.8-7.8); NEUTROPHILS % (AUTO) 82 % (42-75); PLATELET COUNT 290 10^3/uL (130-400); WHITE BLOOD COUNT 7.2 10^3/uL (4.3-11.0)
[2021-05-23 17:01] LABS: ALBUMIN 4.7 GM/DL (3.2-4.5); CHLORIDE 103 MMOL/L (98-107); POTASSIUM 3.2 MMOL/L (3.6-5.0); SODIUM 142 MMOL/L (135-145)
[2021-05-23 17:02] LABS: CALCIUM 9.5 MG/DL (8.5-10.1)
[2021-05-23 17:03] LABS: GLUCOSE 113 MG/DL (70-105)
[2021-05-23 17:05] LABS: CARBON DIOXIDE 25 MMOL/L (21-32)
[2021-05-23 17:06] LABS: BILIRUBIN,TOTAL 0.5 MG/DL (0.1-1.0)
[2021-05-23 17:07] LABS: ALKALINE PHOSPHATASE 64 U/L (40-136); CREATININE SERUM 0.89 MG/DL (0.60-1.30); GFR ESTIMATED 79
[2021-05-23 17:08] LABS: BUN/CREATININE RATIO 9
[2021-05-23 17:10] LABS: ALANINE AMINOTRANSFERASE 55 U/L (0-55)
[2021-05-23 17:36] LABS: BILIRUBIN,URINE 2+ (NEGATIVE); CLARITY,URINE SL CLOUDY; COLOR,URINE DARK YELLOW; GLUCOSE, URINE (UA) NEGATIVE (NEGATIVE); KETONES,URINE 3+ (NEGATIVE); LEUKOCYTE ESTERASE ,URINE 2+ (NEGATIVE); NITRITE,URINE NEGATIVE (NEGATIVE); PROTEIN,URINE 1+ (NEGATIVE)
[2021-05-23] MEDS ORDERED: ONDANSETRON 4 MG/2 ML (SDV) Z0FRAN ONE (17:41)
[2021-05-23] MEDS ORDERED: LORazepam INJ 2 MG/ML (ATIVAN) VIAL ONE (17:42)
[2021-05-23 17:47] LABS: AMORPHOUS SEDIMENT,UR FEW AMOR URATES /LPF; BACTERIA,URINE LARGE /HPF
[2021-05-23] MEDS ORDERED: cefTRIAXone 1 GM PRE-MIX 50 ML IV ONE (18:00)
[2021-05-23] MEDS ORDERED: ONDANSETRON 4 MG/2 ML (SDV) Z0FRAN IVP ONE (18:15)
[2021-05-23] MEDS ORDERED: LORazepam INJ 2 MG/ML (ATIVAN) VIAL IVP PRN (18:15)
[2021-05-23] MEDS ORDERED: PROM25TA14 PO (18:48)
[2021-05-23 19:00] VITALS: BP 109/73
== END 2021-05-23 19:00 | disposition home or self-care (01) ==
LOC: EDUNIT# 16:22 → ER 16:24
DX: U07.1 COVID-19 (principal); R11.2 Nausea with vomiting, unspecified
CPT/HCPCS: 36415; 80053; 81000; 84703; 85025; 87088

== ENCOUNTER 2021-05-24 08:29 | Observation (INO) | payer MEDICAID ==
[~2021-05-24] VITALS: Ht 176 cm; Wt 96.7 kg
[~2021-05-24 08:29] MED LIST changes: +PROM25TA14 PO
[2021-05-24] MEDS ORDERED: ONDANSETRON 4 MG/2 ML (SDV) Z0FRAN IVP ONE ×2 (09:00→12:00)
[2021-05-24] MEDS ORDERED: LACTATED RINGERS 1,000 ML IV ONE (09:00)
[2021-05-24 09:01] LABS: BASOPHILS % (AUTO) 0 % (0-10); EOSINOPHILS % (AUTO) 0 % (0-10); HEMATOCRIT 42 % (35-52); HEMOGLOBIN 13.8 g/dL (11.5-16.0); LYMPHOCYTES # (AUTO) 1.4 10^3/uL (1.0-4.0); LYMPHOCYTES % (AUTO) 17 % (12-44); MEAN CORPUSCULAR HEMOGLOBIN 29 pg (25-34); MEAN CORPUSCULAR HGB CONC 33 g/dL (32-36); MEAN CORPUSCULAR VOLUME 87 fL (80-99); MEAN PLATELET VOLUME 10.4 fL (9.0-12.2); MONOCYTES # (AUTO) 0.5 10^3/uL (0.0-1.0); MONOCYTES % (AUTO) 6 % (0-12); NEUTROPHILS # (AUTO) 6.1 10^3/uL (1.8-7.8); NEUTROPHILS % (AUTO) 76 % (42-75); PLATELET COUNT 285 10^3/uL (130-400); WHITE BLOOD COUNT 8.1 10^3/uL (4.3-11.0)
[2021-05-24 09:09] LABS: ALBUMIN 4.4 GM/DL (3.2-4.5); POTASSIUM 3.1 MMOL/L (3.6-5.0)
[2021-05-24 09:10] LABS: CALCIUM 9.3 MG/DL (8.5-10.1)
[2021-05-24 09:12] LABS: TOTAL PROTEIN 7.5 GM/DL (6.4-8.2)
[2021-05-24 09:14] LABS: BILIRUBIN,TOTAL 0.6 MG/DL (0.1-1.0)
[2021-05-24 09:15] LABS: CREATININE SERUM 0.83 MG/DL (0.60-1.30)
[2021-05-24] MEDS ORDERED: NS IV 1000 ML 1,000 ML IV SCH (10:00)
[2021-05-24] MEDS ORDERED: POTASSIUM CL 10MEQ/50ML IVPB 50 ML IV ONE (10:00)
[2021-05-24] MEDS ORDERED: PROMETHAZINE INJ 25 MG/ML (PHENERGAN) AMP IVP ONE (10:15)
[2021-05-24] MEDS ORDERED: IOHEXOL 350 MG/ML 100 ML (OMNIPAQUE 350) VIAL IV ONE (10:15)
[2021-05-24] MEDS ORDERED: fentaNYL INJ 100 MCG/2 ML AMP IVP ONE ×2 (10:15→12:00)
[2021-05-24] MEDS ORDERED: HOLD METFORMIN - RECEIVED CONTRAST 20 ML VIAL IV SCH (10:15)
[2021-05-24] MEDS ORDERED: NS 100 ML (IVPB) BAG IV ONE (10:15)
--- NOTE | 2021-05-24 11:04 | Diagnostic Imaging Report ---
PROCEDURE: CT abdomen and pelvis with contrast. TECHNIQUE: Multiple contiguous axial images were obtained through the abdomen and pelvis after administration of intravenous contrast. Auto Exposure Controls were utilized during the CT exam to meet ALARA standards for radiation dose reduction. All CT scans use one or more of the following dose optimizing techniques: automated exposure control, MA and/or KvP adjustment based on patient size and exam type or iterative reconstruction. INDICATION: Abdominal pain. Vomiting. COVID positive patient. COMPARISON: 09/15/2013 FINDINGS: Included portions of the lung bases are clear. CT ABDOMEN: Normal appendix is identified. Small bowel loops are nondistended. The kidneys, adrenal glands, spleen, pancreas, and liver have a normal CT appearance. There is no loculated fluid collection, free fluid or free air within the abdomen. No abnormal mesenteric or retroperitoneal adenopathy is seen. Osseous structures show no acute abnormalities. CT PELVIS: Urinary bladder is opacified. No calculi are seen within urinary bladder. There is no loculated fluid collection, free fluid, nor free air. Osseous structures show no acute abnormalities. IMPRESSION: 1. No acute abnormalities seen within the abdomen or pelvis. Report was faxed to [facility] by [place] at 11:09AM. Dictated by: Dictated on workstation # [id number]
[2021-05-24] MEDS ORDERED: KETOROLAC 30 MG/ML VIAL IVP ONE (12:00)
--- NOTE | 2021-05-24 13:08 | ED General ---
General Chief Complaint: COVID19 Suspect/Confirmed Stated Complaint: CHILLS,N/V,ANSARI,ABD PAIN Nursing Triage Note: ARRIVED VIA AMB ET STATES SHE IS COVID POSTIVIE AND HAS NOT BEEN ABLE TO KEEP ANYTHING DOWN SINCE SAT AND HAS A HEADACHE. Source of Information: Patient Exam Limitations: No Limitations History of Present Illness Date Seen by Provider: May 24, 2021 Time Seen by Provider: 08:34 Initial Comments This 25-year-old young lady presents to the emergency room with vomiting and abdominal pain that has not responded to antiemetics at home. She tested positive for COVID-19 on May 20 and she believes she has been ill with COVID-19 since May 18. She has not had any monoclonal antibody therapy arranged yet. She is in distress from intractable nausea and vomiting. She seems mildly confused. She also reports headache. She has not been able to keep food or fluid down for a few days. She was not Covid vaccinated. She complains of diffuse myalgia. Allergies and Home Medications Allergies Coded Allergies: amoxicillin trihydrate (Verified Allergy, Mild, 11/12/11) ibuprofen (Unverified Adverse Reaction, Unknown, 03/24/18) Aggravates IBS Patient Home Medication List Home Medication List Reviewed: Yes Norethindrone (Norethindrone) 0.35 Mg Tablet, (Reported) Entered as Reported by: ERICH SHARMA on 01/02/212151 Ondansetron (Ondansetron Odt) 4 Mg Tab.rapdis, 4 MG PO Q4H Prescribed by: BRIANNE RUVALCABA on 05/21/212053 Promethazine HCl (Promethazine Tablet) 25 Mg Tablet, 25 MG PO Q8H PRN for NAUSEA/VOMITING Prescribed by: FAMILIA DALTON on 05/23/21 1848 Review of Systems Review of Systems Constitutional: No fever; weakness EENTM: no symptoms reported Respiratory: cough Cardiovascular: no symptoms reported Gastrointestinal: see HPI 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: no symptoms reported : No Musculoskeletal: see HPI Skin: no symptoms reported Psychiatric/Neurological: No Symptoms Reported Hematologic/Lymphatic: No Symptoms Reported Immunological/Allergic: no symptoms reported Past Cbahocn-Myxrud-Tkuvvq Hx Patient Social History Tobacco Use?: No Smoking Status: Never a Smoker Substance use?: No Alcohol Use?: No Immunizations Up To Date Tetanus Booster (TDap): Less than 5yrs First/Initial COVID19 Vaccinat: 2020 Second COVID19 Vaccination Clint: 2020 Seasonal Allergies Seasonal Allergies: No Past Medical History Surgery/Hospitalization HX: T/A Surgeries: Yes Adenoidectomy, Tonsillectomy Respiratory: No Cardiac: No Neurological: Yes Headaches /Migraines 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 Disorders: No Female 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 Disorders: Denies Sexually Transmitted Disease: No 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: No Gastrointestinal: Yes Chronic Constipation, Irritable Bowel Musculoskeletal: Yes (CHRONIC PAIN IN R ANKLE) Endocrine: No HEENT: Yes (S/P TONSILLECTOMY) Cancer: No Psychosocial: Yes ADD/ADHD Integumentary: No Blood Disorders: No Physical Exam Vital Signs Vital Signs - First Documented 05/24/21 08:45 Temp 36.7 Pulse 78 Resp 16 B/P (MAP) 127/86 (100) Pulse Ox 94 O2 Delivery Room Air Capillary Refill : Less Than 3 Seconds Height, Weight, BMI Height: 5'8.00" Weight: 160lbs. oz. 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 Norm as Tested, Other (Mildly confused) Skin: Normal Color, Warm/Dry Progress/Results/Core Measures Suspected Sepsis SIRS Temperature: Pulse: 78 Respiratory Rate: 16 Laboratory Tests 05/24/21 08:56: White Blood Count 8.1 Blood Pressure 127 /86 Mean: 100 Laboratory Tests 05/24/21 08:56: Creatinine 0.83, Platelet Count 285, Total Bilirubin 0.6 Results/Orders Lab Results Laboratory Tests Test 05/24/21 08:56 Range/Units White Blood Count 8.1 4.3-11.0 10^3/uL Red Blood Count 4.85 3.80-5.11 10^6/uL Hemoglobin 13.8 11.5-16.0 g/dL Hematocrit 42 35-52 % Mean Corpuscular Volume 87 80-99 fL Mean Corpuscular Hemoglobin 29 25-34 pg Mean Corpuscular Hemoglobin Concent 33 32-36 g/dL Red Cell Distribution Width 13.0 10.0-14.5 % Platelet Count 285 130-400 10^3/uL Mean Platelet Volume 10.4 9.0-12.2 fL Immature Granulocyte % (Auto) 0 % Neutrophils (%) (Auto) 76 H 42-75 % Lymphocytes (%) (Auto) 17 12-44 % Monocytes (%) (Auto) 6 0-12 % Eosinophils (%) (Auto) 0 0-10 % Basophils (%) (Auto) 0 0-10 % Neutrophils # (Auto) 6.1 1.8-7.8 10^3/uL Lymphocytes # (Auto) 1.4 1.0-4.0 10^3/uL Monocytes # (Auto) 0.5 0.0-1.0 10^3/uL Eosinophils # (Auto) 0.0 0.0-0.3 10^3/uL Basophils # (Auto) 0.0 0.0-0.1 10^3/uL Immature Granulocyte # (Auto) 0.0 0.0-0.1 10^3/uL Sodium Level 141 135-145 MMOL/L Potassium Level 3.1 L 3.6-5.0 MMOL/L Chloride Level 105 98-107 MMOL/L Carbon Dioxide Level 25 21-32 MMOL/L Anion Gap 11 5-14 MMOL/L Blood Urea Nitrogen 9 7-18 MG/DL Creatinine 0.83 0.60-1.30 MG/DL Estimat Glomerular Filtration Rate 85 BUN/Creatinine Ratio 11 Glucose Level 116 H 70-105 MG/DL Calcium Level 9.3 8.5-10.1 MG/DL Corrected Calcium 9.0 8.5-10.1 MG/DL Total Bilirubin 0.6 0.1-1.0 MG/DL Aspartate Amino Transf (AST/SGOT) 55 H 5-34 U/L Alanine Aminotransferase (ALT/SGPT) 75 H 0-55 U/L Alkaline Phosphatase 59 40-136 U/L C-Reactive Protein High Sensitivity 0.11 0.00-0.50 MG/DL Total Protein 7.5 6.4-8.2 GM/DL Albumin 4.4 3.2-4.5 GM/DL Lipase 37 8-78 U/L Serum Test, Qualitative NEGATIVE NEGATIVE My Orders Orders - NELLY ESTRELLA MD Ed Iv/Invasive Line Start (05/24/21 08:34) Cbc With Automated Diff (05/24/21 08:34) Comprehensive Metabolic Panel (05/24/21 08:34) Hs C Reactive Protein (05/24/21 08:34) Hcg,Qualitative Serum (05/24/21 08:34) Lipase (05/24/21 08:34) Ua Culture If Indicated (05/24/21 08:34) Covid 19 Inhouse Test (05/24/21 08:34) Influenza A And B By Pcr (05/24/21 08:34) Ondansetron Injection (Zofran Injectio (05/24/21 09:00) Lactated Ringers (Lr 1000 Ml Iv Solution (05/24/21 09:00) Potassium Cl 10meq/50ml Ivpb (Kcl 10 Meq (05/24/21 10:00) Ns Iv 1000 Ml (Sodium Chloride 0.9%) (05/24/21 10:00) Promethazine Injection (Phenergan Injec (05/24/21 10:15) Fentanyl Inj (Sublimaze Injection) (05/24/21 10:15) Ct Abdomen/Pelvis W (05/24/21 10:10) Iohexol Injection (Omnipaque 350 Mg/Ml 1 (05/24/21 10:15) Received Contrast (Hold Metformin- Contr (05/24/21 10:15) Ns (Ivpb) (Sodium Chloride 0.9% Ivpb Bag (05/24/21 10:15) Ed Admission (Communication) (05/24/21 11:35) Ketorolac Injection (Toradol Injection) (05/24/21 12:00) Fentanyl Inj (Sublimaze Injection) (05/24/21 12:00) Ondansetron Injection (Zofran Injectio (05/24/21 12:00) Medications Given in ED Current Medications Medications Dose Ordered Sig/Lety Route Start Time Stop Time Status Last Admin Dose Admin Fentanyl Citrate 50 mcg ONCE ONCE IVP 05/24/21 10:15 05/24/21 10:16 DC 05/24/21 10:42 50 MCG Fentanyl Citrate 50 mcg ONCE ONCE IVP 05/24/21 12:00 05/24/21 12:01 DC 05/24/21 12:10 50 MCG Iohexol 100 ml ONCE ONCE IV 05/24/21 10:15 05/24/21 10:16 DC 05/24/21 10:30 100 ML Ketorolac Tromethamine 30 mg ONCE ONCE IVP 05/24/21 12:00 05/24/21 12:01 DC 05/24/21 12:09 30 MG Lactated Ringer's 1,000 ml @ 0 mls/hr Q0M ONCE IV 05/24/21 09:00 05/24/21 09:01 DC 05/24/21 09:15 1,000 MLS/HR Ondansetron HCl 4 mg ONCE ONCE IVP 05/24/21 12:00 05/24/21 12:01 DC 05/24/21 12:12 4 MG Ondansetron HCl 8 mg ONCE ONCE IVP 05/24/21 09:00 05/24/21 09:01 DC 05/24/21 09:15 8 MG Potassium Chloride 50 ml @ 50 mls/hr ONCE ONCE IV 05/24/21 10:00 05/24/21 10:59 DC 05/24/21 10:39 50 MLS/HR Promethazine HCl 25 mg ONCE ONCE IVP 05/24/21 10:15 05/24/21 10:16 DC 05/24/21 10:42 25 MG Sodium Chloride 100 ml ONCE ONCE IV 05/24/21 10:15 05/24/21 10:16 DC 05/24/21 10:30 80 ML Vital Signs/I&O 05/24/21 08:45 Temp 36.7 Pulse 78 Resp 16 B/P (MAP) 127/86 (100) Pulse Ox 94 O2 Delivery Room Air Capillary Refill : Less Than 3 Seconds Blood Pressure Mean: 100 Progress Note : Time: 13:10 Progress Note Patient was hydrated with a liter of LR and Zofran was administered. She had rebound nausea and vomiting which was treated with Phenergan. She still had persistent nausea and vomiting after Phenergan. An additional 4 mg of Zofran was administered. Potassium replacement was initiated with first LR and then a dose of 10 mEq IV. Pain was treated with fentanyl. CT of the abdomen was obtained due to significant abdominal tenderness. She also had emesis with the appearance of stool in the context of no bowel movement for the past 2 days. There was concern for bowel obstruction. CT revealed no acute abnormalities. Pain was further treated with Toradol and a repeat dose of fentanyl. Patient did not think she can manage her symptoms at home. She has had refractory nausea and vomiting despite multiple antiemetic doses. Admission was pursued and Dr. Mckinley accepted admission. Patient may be eligible for monoclonal antibody therapy and this was discussed. Diagnostic Imaging Diagonstic Imaging: CT Plain Films/CT/US/NM/MRI: abdomen, pelvis Comments CT abdomen and pelvis viewed by me and report reviewed. See report below: NAME: [facility] REC#: [id number] PT STATUS: REG ER : 1995 PHYSICIAN: NELLY ESTRELLA MD ADMIT DATE: 05/24/21/ER Draft Date of Exam:05/24/21 CT ABDOMEN/PELVIS W PROCEDURE: CT abdomen and pelvis with contrast. TECHNIQUE: Multiple contiguous axial images were obtained through the abdomen and pelvis after administration of intravenous contrast. Auto Exposure Controls were utilized during the CT exam to meet ALARA standards for radiation dose reduction. All CT scans use one or more of the following dose optimizing techniques: automated exposure control, MA and/or KvP adjustment based on patient size and exam type or iterative reconstruction. INDICATION: Abdominal pain. Vomiting. COVID positive patient. COMPARISON: 09/15/2013 FINDINGS: Included portions of the lung bases are clear. CT ABDOMEN: Normal appendix is identified. Small bowel loops are nondistended. The kidneys, adrenal glands, spleen, pancreas, and liver have a normal CT appearance. There is no loculated fluid collection, free fluid or free air within the abdomen. No abnormal mesenteric or retroperitoneal adenopathy is seen. Osseous structures show no acute abnormalities. CT PELVIS: Urinary bladder is opacified. No calculi are seen within urinary bladder. There is no loculated fluid collection, free fluid, nor free air. Osseous structures show no acute abnormalities. IMPRESSION: 1. No acute abnormalities seen within the abdomen or pelvis. Report was faxed to [facility] by janny at 11:09AM. Dictated on workstation # [id number] Dict: 05/24/21 1053 Trans: 05/24/21 110 JANNY [id number] Interpreted by: MAGAN BELTRAN MD Departure Communication (Admissions) Time/Spoke to Admitting Phy: 11:30 Dr. Mckinley Impression Primary Impression: Intractable nausea and vomiting Additional Impressions: COVID-19 virus infection Hypokalemia Generalized abdominal pain Disposition: ADMITTED INPATIENT Condition: Improved Admissions Decision to Admit Reason: Admit from ER (General) Decision to Admit/Date: May 24, 2021 Time/Decision to Admit Time: 11:30 Departure-Patient Inst. Referrals: [facility] [place] [facility] [place]) Primary Care Physician NELLY ESTRELLA MD May 24, 2021 13:08
[2021-05-24] MEDS ORDERED: NS (IVPB) 100 ML ONE (13:27)
[2021-05-24] MEDS ORDERED: ALPRAZolam 0.25 MG (XANAX) TAB PO PRN (13:30)
[2021-05-24] MEDS ORDERED: diphenhydrAMINE 25 MG TAB (BENADRYL) PO PRN (13:30)
[2021-05-24] MEDS ORDERED: ANTACID SUSP 30 ML UDC (MYLANTA) PO PRN (13:30)
[2021-05-24] MEDS ORDERED: MILK OF MAGNESIA 400 MG/5 ML 30 ML UDC PO PRN (13:30)
[2021-05-24] MEDS ORDERED: MELATONIN 3 MG TABLET PO PRN (13:30)
[2021-05-24] MEDS ORDERED: polyethylene glycoL POWDER 17 GM (MIRALAX) PACK PO PRN (13:30)
[2021-05-24] MEDS ORDERED: CALCIUM CARBONATE 500 MG (TUMS) TAB.CHEW PO PRN (13:30)
[2021-05-24] MEDS ORDERED: ACETAMINOPHEN 325 MG TABLET PO PRN (13:30)
[2021-05-24] MEDS ORDERED: LACTULOSE SYRUP 10GM/15ML (ENULOSE) 30ML UDC PO PRN (13:30)
[2021-05-24] MEDS ORDERED: BISACODYL 10 MG SUPP (DULCOLAX) PR PRN ×2 (13:30)
[2021-05-24] MEDS: NS IV 1000 ML 1,000 ML IV SCH (13:43)
[2021-05-24] MEDS ORDERED: ONDANSETRON 4 MG/2 ML (SDV) Z0FRAN IV PRN (13:45)
[2021-05-24] MEDS ORDERED: diphenhydrAMINE 50 MG/ML INJ (BENADRYL) IV PRN (13:45)
[2021-05-24] MEDS ORDERED: EPINEPHrine INJECTION 1 MG/ML AMP IM PRN (13:45)
[2021-05-24] MEDS ORDERED: ACETAMINOPHEN 500 MG TAB (TYLENOL) PO PRN (13:45)
[2021-05-24] MEDS: ENOXAPARIN 40 MG/0.4 ML (LOVENOX) SYR SC SCH (13:49)
[2021-05-24 13:56] LABS: BILIRUBIN,URINE 1+ (NEGATIVE); CLARITY,URINE CLEAR; COLOR,URINE YELLOW; GLUCOSE, URINE (UA) NEGATIVE (NEGATIVE); KETONES,URINE 3+ (NEGATIVE); LEUKOCYTE ESTERASE ,URINE NEGATIVE (NEGATIVE); NITRITE,URINE NEGATIVE (NEGATIVE); PROTEIN,URINE TRACE (NEGATIVE)
[2021-05-24] MEDS ORDERED: BAMLANIVIMAB 700 MG/ETESEVIMAB 1,400 MG IN NS IV ONE ×3 (14:00)
[2021-05-24 14:12] LABS: BACTERIA,URINE TRACE /HPF; WBC,URINE 0-2 /HPF
[2021-05-24 14:16] VITALS: BP 110/70
[2021-05-24] MEDS: morphine INJ 4 MG/ML 1 ML (VIAL/SYRINGE) IV PRN (14:18)
[2021-05-24] MEDS: ONDANSETRON 4 MG/2 ML (SDV) Z0FRAN IV PRN ×2 (14:18→19:53)
[2021-05-24 15:34] VITALS: BP 117/76
--- NOTE | 2021-05-24 16:15 | History & Physical-Hospitalist ---
History of Present Illness HPI/Chief Complaint CC: Nausea and vomiting HPI: This is a 25yoWF clinic Pt of [facility] who presents to the hospital due to nausea and vomiting, she was just diagnosed with Covid and although she is not hypoxic and CXR was normal, she met criteria for antibody infusion so she will be given that along with IV fluids, potassium supplementation and antiemetics. CT scan was negative since there was a suspicion for bowel obstruction. Source: patient Exam Limitations: clinical condition Date Seen 05/24/21 Time Seen by a Provider: 16:00 Attending Physician Katlin Mckinley DO [facility] Referring Physician Date of Admission May 24, 2021 at 11:37 Home Medications & Allergies Home Medications Reviewed patient Home Medication Reconciliation performed by pharmacy medication reconciliations explosive ordnance disposal technician and/or nursing. Patients Allergies have been reviewed. Allergies Allergies Coded Allergies amoxicillin trihydrate (Verified Allergy, Mild, 11/12/11) ibuprofen (Unverified Adverse Reaction, Unknown, 03/24/18) Aggravates IBS Past Fjwwvgs-Vqyriz-Tkthdx Hx Patient Social History Marrital Status: single Tobacco Use?: No Smoking Status: Never a Smoker Smokeless Tobacco Frequency: Never a User Use of E-Cig and/or Vaping dev: No Substance use?: No Alcohol Use?: No Pt feels they are or have been: No Immunizations Up To Date Date of Influenza Vaccine: Apr 03, 2013 First/Initial COVID19 Vaccinat: END December- Second COVID19 Vaccination Clint: NO Tetanus Booster (TDap): Unknown Seasonal Allergies Seasonal Allergies: No Current Status status: No Advance Directives: No Communicates: Verbally Primary Language: Micronesian Preferred Spoken Language: Micronesian Is interpretation needed?: No Sensory deficits: Vision impairment Implanted or Applied Medical D: None Past Medical History Surgeries: Adenoidectomy, Tonsillectomy Headaches /Migraines Sexually Transmitted Disease: No Chronic Constipation, Irritable Bowel ADD/ADHD Blood Disorders: No Review of Systems Constitutional: see HPI, dizziness, fever, malaise, weakness EENTM: no symptoms reported Respiratory: dyspnea on exertion Cardiovascular: no symptoms reported Gastrointestinal: loss of appetite, nausea, vomiting 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: no symptoms reported Musculoskeletal: no symptoms reported Skin: no symptoms reported Psychiatric/Neurological: No Symptoms Reported All Other Systems Reviewed Negative Unless Noted: Yes Physical Exam Physical Exam Vital Signs Vital Signs - First Documented 05/24/21 08:45 Temp 36.7 Pulse 78 Resp 16 B/P (MAP) 127/86 (100) Pulse Ox 94 O2 Delivery Room Air Capillary Refill : Less Than 3 Seconds Height, Weight, BMI Height: 5'8.00" Weight: 160lbs. oz. 72.584331pl; 31.21 BMI Method:Stated General Appearance: Anxious, Chronically ill, Mild Distress, Other (Maza and ashen) HEENT: PERRL/EOMI, Pharynx Normal Neck: Full Range of Motion, Normal Inspection, Non Tender Respiratory: No Accessory Muscle Use, No Respiratory Distress, Decreased Breath Sounds Cardiovascular: Regular Rate, Rhythm Neurologic/Psychiatric: Alert, Oriented x3, No Motor/Sensory Deficits, Normal M ood/Affect Results Results/Procedures Labs Laboratory Tests 05/24/21 08:56 Patient resulted labs reviewed. Assessment/Plan Admission Diagnosis Assessment: Intractable nausea and vomiting COVID-19 pneumonia without hypoxia meets criteria for antibiotic infusion Elevated BMI 31 Plan: IV fluids Antibiotic infusion Antiemetics Admission Status: Observation Diagnosis/Problems Diagnosis/Problems (1) Intractable nausea and vomiting (2) COVID-19 virus infection Status: Acute KATLIN MCKINLEY DO May 24, 2021 16:15
[2021-05-24] MEDS: PROMETHAZINE INJ 25 MG/ML (PHENERGAN) AMP IM PRN (18:16)
[2021-05-24 19:19] VITALS: BP 110/67
[2021-05-24] MEDS ORDERED: PANTOPRAZOLE 40 MG (PROTONIX) TAB PO SCH (21:15)
[2021-05-24] MEDS ORDERED: PANTOPRAZOLE 40 MG (PROTONIX) TAB PO ONE (21:19)
[2021-05-24] MEDS: DOCUSATE SODIUM 100 MG (COLACE) CAP PO SCH (21:25)
[2021-05-24] MEDS: ACETAMINOPHEN 500 MG TAB (TYLENOL) PO PRN (21:25)
[2021-05-24] MEDS: SENNOSIDES 8.6 MG (SENOKOT) TAB PO SCH (21:25)
[2021-05-24] MEDS: diphenhydrAMINE 50 MG/ML INJ (BENADRYL) IVP PRN (22:37)
[2021-05-25] VITALS: BP 111/70
[2021-05-25] MEDS: NS IV 1000 ML 1,000 ML IV SCH ×2 (02:33→08:36)
[2021-05-25] MEDS: PROMETHAZINE INJ 25 MG/ML (PHENERGAN) AMP IM PRN (02:50)
[2021-05-25 05:06] VITALS: BP 123/78
[2021-05-25] MEDS: ONDANSETRON 4 MG/2 ML (SDV) Z0FRAN IV PRN ×3 (05:24→15:42)
[2021-05-25] MEDS: PANTOPRAZOLE 40 MG (PROTONIX) TAB PO SCH ×2 (05:24→15:42)
[2021-05-25] MEDS: morphine INJ 4 MG/ML 1 ML (VIAL/SYRINGE) IV PRN ×2 (06:11→17:17)
[2021-05-25 06:59] LABS: BASOPHILS % (AUTO) 0 % (0-10); EOSINOPHILS % (AUTO) 0 % (0-10); HEMATOCRIT 38 % (35-52); HEMOGLOBIN 12.1 g/dL (11.5-16.0); LYMPHOCYTES # (AUTO) 1.6 10^3/uL (1.0-4.0); LYMPHOCYTES % (AUTO) 20 % (12-44); MEAN CORPUSCULAR HEMOGLOBIN 28 pg (25-34); MEAN CORPUSCULAR HGB CONC 32 g/dL (32-36); MEAN CORPUSCULAR VOLUME 87 fL (80-99); MEAN PLATELET VOLUME 10.4 fL (9.0-12.2); MONOCYTES # (AUTO) 0.6 10^3/uL (0.0-1.0); MONOCYTES % (AUTO) 7 % (0-12); NEUTROPHILS # (AUTO) 6.1 10^3/uL (1.8-7.8); NEUTROPHILS % (AUTO) 73 % (42-75); PLATELET COUNT 232 10^3/uL (130-400); WHITE BLOOD COUNT 8.3 10^3/uL (4.3-11.0)
[2021-05-25 07:20] LABS: ALBUMIN 3.8 GM/DL (3.2-4.5); BILIRUBIN,TOTAL 0.7 MG/DL (0.1-1.0); CALCIUM 8.7 MG/DL (8.5-10.1); CREATININE SERUM 0.7 MG/DL (0.60-1.30); TOTAL PROTEIN 6.5 GM/DL (6.4-8.2)
[2021-05-25 08:00] VITALS: BP 126/71
[2021-05-25] MEDS ORDERED: ONDA4TAB11 PO (08:29)
[2021-05-25] MEDS ORDERED: MULT-158 PO (08:30)
[2021-05-25] MEDS ORDERED: IBUP-2473 PO (08:30)
[2021-05-25] MEDS: SENNOSIDES 8.6 MG (SENOKOT) TAB PO SCH ×2 (08:37→20:54)
[2021-05-25] MEDS: DOCUSATE SODIUM 100 MG (COLACE) CAP PO SCH ×2 (08:37→20:54)
--- NOTE | 2021-05-25 10:48 | Progress Note - Hospitalist ---
Subjective HPI/CC On Admission Date Seen by Provider: May 25, 2021 Time Seen by Provider: 11:30 CC: Nausea and vomiting HPI: This is a 25yoWF clinic Pt of [facility] who presents to the hospital due to nausea and vomiting, she was just diagnosed with Covid and although she is not hypoxic and CXR was normal, she met criteria for antibody infusion so she will be given that along with IV fluids, potassium supplementation and antiemetics. CT scan was negative since there was a suspicion for bowel obstruction. Subjective/Events-last exam Pt doing well Nausea continues Will place Scopolamine patch and and do Reglan 10mg IV Q6hrs scheduled Overall doing pretty well Replacing potassium since it is 3.0 doing that 40mEq IV Review of Systems General: Fatigue Gastrointestinal: Nausea, Vomiting Objective Exam Vital Signs Vital Signs Date Time Temp Pulse Resp B/P (MAP) Pulse Ox O2 Delivery O2 Flow Rate FiO2 05/26/21 04:00 37.0 60 18 133/82 (99) 96 Room Air Capillary Refill : Less Than 3 Seconds General Appearance: No Apparent Distress, WD/WN, Anxious, Chronically ill Respiratory: Lungs Clear, Normal Breath Sounds Cardiovascular: Regular Rate, Rhythm Neurologic/Psychiatric: Alert, Oriented x3, No Motor/Sensory Deficits, Normal Mood/Affect Results/Procedures Lab Laboratory Tests 05/25/21 06:45 Patient resulted labs reviewed. Assessment/Plan Assessment and Plan Assess & Plan/Chief Complaint Assessment: Intractable nausea and vomiting COVID-19 pneumonia without hypoxia meets criteria for antibody infusion Elevated BMI 31 Episode of hematemesis prompting consult with Dr. BECKMAN Plan: IV fluids Antibody infusion Antiemetics 05/25/2021: Scopolamine patch Reglan scheduled Dr. BECKMAN appreciated Diagnosis/Problems Diagnosis/Problems (1) Intractable nausea and vomiting (2) COVID-19 virus infection Status: Acute COURTNEY MULLINS DO May 25, 2021 10:48
[2021-05-25 12:00] VITALS: BP 131/77
[2021-05-25] MEDS ORDERED: SCOPOLAMINE 1.5 MG (TRANSDERM-SCOP) PATCH TD SCH (12:00)
[2021-05-25] MEDS: ENOXAPARIN 40 MG/0.4 ML (LOVENOX) SYR SC SCH (12:05)
[2021-05-25] MEDS: POTASSIUM CL 10MEQ/50ML IVPB 50 ML IV SCH ×3 (12:05→20:49)
[2021-05-25] MEDS: METOCLOPRAMIDE INJ 10 MG/2 ML (REGLAN) IVP SCH ×3 (12:16→22:48)
[2021-05-25] MEDS ORDERED: SCOPOLAMINE 1.5 MG (TRANSDERM-SCOP) PATCH ONE (12:21)
[2021-05-25 15:59] VITALS: BP 134/83
--- NOTE | 2021-05-25 18:19 | CONSULTATION REPORT ---
DATE OF SERVICE: 05/25/2021 ATTENDING PRIMARY BUSINESS MANAGEMENT CONSULTANT: [facility]. HISTORY OF PRESENT ILLNESS: The patient is a 25-year-old female who presented to the Emergency Department with nausea and vomiting as well as fatigue. She tested positive for SARS COVID 2 05/20/2021, however, believes that she began having symptoms on 05/18/2021. She has not had any monoclonal antibody therapy. She was admitted and during this admission, she will have persistent episodes of nausea and vomiting. PAST MEDICAL HISTORY: Migraine headaches, irritable bowel, constipation, ADHD. PAST SURGICAL HISTORY: Tonsillectomy. ALLERGIES: AMOXICILLIN, IBUPROFEN. MEDICATIONS: Norethindrone 0.35 mg daily, Zofran p.r.n., promethazine p.r.n. SOCIAL HISTORY: Negative smoke, negative alcohol. FAMILY HISTORY: Noncontributory. VITAL SIGNS: Temperature 35.9, blood pressure 131/77, pulse 70, respirations 18, pulse ox 96% on room air. REVIEW OF SYSTEMS: A well-nourished female, currently in no acute distress. She does have intermittent episodes of nausea; however, not as bad as in the past. She does not report any hematemesis nor coffee-ground emesis. She does not recall any dark tarry stools or red blood per rectum. No fever, chills; however, has been fatigued for the past several days. No recent inadvertent weight loss. PHYSICAL EXAMINATION: CHEST: Few scattered rales bilaterally. HEART: Regular, no murmurs. EXTREMITIES: No lower extremity edema, negative Homans sign. HEENT: No scleral icterus. NECK: No cervical lymphadenopathy. ABDOMEN: Soft, nontender, nondistended. SKIN: Warm, dry. LABORATORY DATA: WBC 8.3, hemoglobin 12.1, hematocrit 31, platelets 232. BUN 8, creatinine 0.70, total bilirubin 0.7. ASSESSMENT AND PLAN: A 25-year-old female with SARS COVID 2 with a constellation of symptoms including fatigue, myalgia as well as nausea and vomiting. A CT scan of the abdomen was performed, which did not show any abnormalities. Her white count is also normal. We feel that this is a part of her constellation of symptoms related to her coronavirus infection. She is currently on Protonix 40 mg b.i.d., which we will convert to IV and recommend to slowly advance diet as tolerated and to continue with antiemetics as necessary. There is a possibility that her symptoms may be mediated by her gallbladder as well and will order an ultrasound. We feel that she does not need any endoscopy at this time because of the risk prohibitive nature of doing procedures with individuals with symptomatic covid. Job ID: [id number] DocumentID: [id number] Dictated Date: 05/25/2021 15:28:04 Harvest Worker Fruit Date: 05/25/2021 16:00:48 Dictated By: KATERIN BECKMAN MD MTDD
[2021-05-25 19:26] VITALS: BP 115/73
[2021-05-26] VITALS: BP 129/82
[2021-05-26] MEDS: ONDANSETRON 4 MG/2 ML (SDV) Z0FRAN IV PRN ×3 (01:41→18:06)
[2021-05-26] MEDS: diphenhydrAMINE 50 MG/ML INJ (BENADRYL) IVP PRN (01:41)
[2021-05-26 04:00] VITALS: BP 133/82
[2021-05-26] MEDS: METOCLOPRAMIDE INJ 10 MG/2 ML (REGLAN) IVP SCH ×3 (05:09→18:06)
[2021-05-26 06:58] LABS: BASOPHILS % (AUTO) 0 % (0-10); EOSINOPHILS % (AUTO) 0 % (0-10); HEMATOCRIT 37 % (35-52); LYMPHOCYTES # (AUTO) 1.9 10^3/uL (1.0-4.0); LYMPHOCYTES % (AUTO) 22 % (12-44); MEAN CORPUSCULAR HEMOGLOBIN 28 pg (25-34); MEAN CORPUSCULAR HGB CONC 32 g/dL (32-36); MEAN CORPUSCULAR VOLUME 86 fL (80-99); MEAN PLATELET VOLUME 11.2 fL (9.0-12.2); MONOCYTES # (AUTO) 0.5 10^3/uL (0.0-1.0); MONOCYTES % (AUTO) 6 % (0-12); NEUTROPHILS # (AUTO) 6.1 10^3/uL (1.8-7.8); NEUTROPHILS % (AUTO) 71 % (42-75); PLATELET COUNT 242 10^3/uL (130-400); WHITE BLOOD COUNT 8.6 10^3/uL (4.3-11.0)
[2021-05-26 07:21] LABS: ALBUMIN 3.9 GM/DL (3.2-4.5); BILIRUBIN,TOTAL 0.7 MG/DL (0.1-1.0); CALCIUM 8.8 MG/DL (8.5-10.1); CREATININE SERUM 0.72 MG/DL (0.60-1.30); POTASSIUM 3.1 MMOL/L (3.6-5.0); TOTAL PROTEIN 6.4 GM/DL (6.4-8.2)
[2021-05-26] MEDS: DOCUSATE SODIUM 100 MG (COLACE) CAP PO SCH ×2 (07:50→19:22)
[2021-05-26] MEDS: SENNOSIDES 8.6 MG (SENOKOT) TAB PO SCH ×2 (07:50→19:22)
[2021-05-26 08:00] VITALS: BP 131/80
[2021-05-26] MEDS: ACETAMINOPHEN 500 MG TAB (TYLENOL) PO PRN (08:49)
[2021-05-26] MEDS: ALPRAZolam 0.25 MG (XANAX) TAB PO PRN (08:49)
[2021-05-26] MEDS: PANTOPRAZOLE 40 MG (PROTONIX) VIAL IV SCH (08:49)
--- NOTE | 2021-05-26 10:52 | Progress Note - Hospitalist ---
Subjective HPI/CC On Admission Date Seen by Provider: May 26, 2021 Time Seen by Provider: 11:00 CC: Nausea and vomiting HPI: This is a 25yoWF clinic Pt of [facility] who presents to the hospital due to nausea and vomiting, she was just diagnosed with Covid and although she is not hypoxic and CXR was normal, she met criteria for antibody infusion so she will be given that along with IV fluids, potassium supplementation and antiemetics. CT scan was negative since there was a suspicion for bowel obstruction. Subjective/Events-last exam Patient still with nausea and vomiting Ultrasound performed ordered by Dr. BECKMAN Patient appears to be stable from a Covid perspective No pain reported Review of Systems Gastrointestinal: Nausea, Vomiting Objective Exam Vital Signs Vital Signs Date Time Temp Pulse Resp B/P (MAP) Pulse Ox O2 Delivery O2 Flow Rate FiO2 05/26/21 16:34 37.0 50 18 131/80 (97) 97 Room Air Capillary Refill : Less Than 3 Seconds General Appearance: No Apparent Distress, WD/WN, Anxious, Chronically ill Respiratory: Lungs Clear, Normal Breath Sounds Cardiovascular: Regular Rate, Rhythm Neurologic/Psychiatric: Alert, Oriented x3, No Motor/Sensory Deficits, Normal Mood/Affect Results/Procedures Lab Laboratory Tests 05/26/21 06:32 Patient resulted labs reviewed. Assessment/Plan Assessment and Plan Assess & Plan/Chief Complaint Assessment: Intractable nausea and vomiting COVID-19 pneumonia without hypoxia meets criteria for antibody infusion Elevated BMI 31 Episode of hematemesis prompting consult with Dr. BECKMAN Plan: IV fluids Antibody infusion Antiemetics 05/25/2021: Scopolamine patch Reglan scheduled Dr. BECKMAN appreciated 05/26/2021: Ultrasound Antiemetics Diagnosis/Problems Diagnosis/Problems (1) Intractable nausea and vomiting (2) COVID-19 virus infection Status: Acute COURTNEY MULLINS DO May 26, 2021 10:52
[2021-05-26 12:00] VITALS: BP 107/67
--- NOTE | 2021-05-26 12:33 | Diagnostic Imaging Report ---
PROCEDURE: US Abdomen, limited. TECHNIQUE: Multiple realtime grayscale images were obtained over the abdomen in various projections. INDICATION: COVID positive. Nausea and vomiting. EXAMINATION: Ultrasound abdomen 05/26/2021 FINDINGS: The liver appears unremarkable. No masses or intrahepatic biliary dilatation appreciated. Common duct is normal in size. Gallbladder unremarkable with no pericholecystic fluid, gallbladder wall thickening or cholelithiasis. Visualized pancreas, aorta and IVC unremarkable. Right kidney is normal in size with no hydronephrosis. There is no ascites. IMPRESSION: 1. Unremarkable right upper quadrant sonogram. Dictated by: Dictated on workstation # [id number]
[2021-05-26] MEDS: POTASSIUM CL 10MEQ/50ML IVPB 50 ML IV SCH ×5 (13:13→22:18)
[2021-05-26] MEDS: ENOXAPARIN 40 MG/0.4 ML (LOVENOX) SYR SC SCH (13:13)
[2021-05-26 16:34] VITALS: BP 131/80
[2021-05-26] MEDS ORDERED: NS IV 500 ML 500 ML ONE (19:43)
[2021-05-26] MEDS: NS IV 500 ML 500 ML IV SCH (20:03)
[2021-05-26 20:17] VITALS: BP 123/79
[2021-05-27] VITALS (8 sets, daily range): BP systolic 106–130; BP diastolic 64–77
[2021-05-27] MEDS: METOCLOPRAMIDE INJ 10 MG/2 ML (REGLAN) IVP SCH ×5 (00:01→23:40)
[2021-05-27] MEDS: POTASSIUM CL 10MEQ/50ML IVPB 50 ML IV SCH ×3 (00:01→02:32)
[2021-05-27] MEDS: diphenhydrAMINE 50 MG/ML INJ (BENADRYL) IVP PRN (01:24)
--- NOTE | 2021-05-27 06:06 | Progress Note - Hospitalist ---
Subjective HPI/CC On Admission Date Seen by Provider: May 27, 2021 Time Seen by Provider: 10:00 CC: Nausea and vomiting HPI: This is a 25yoWF clinic Pt of [facility] who presents to the hospital due to nausea and vomiting, she was just diagnosed with Covid and although she is not hypoxic and CXR was normal, she met criteria for antibody infusion so she will be given that along with IV fluids, potassium supplementation and antiemetics. CT scan was negative since there was a suspicion for bowel obstruction. Subjective/Events-last exam Patient a bit better Nausea and vomiting continue Drinking a lot better Check meds and labs Review of Systems Gastrointestinal: Nausea, Vomiting Objective Exam Vital Signs Vital Signs Date Time Temp Pulse Resp B/P (MAP) Pulse Ox O2 Delivery O2 Flow Rate FiO2 05/27/21 15:58 36.8 56 18 106/64 (78) 94 Room Air Capillary Refill : Less Than 3 Seconds General Appearance: No Apparent Distress, WD/WN, Chronically ill, Obese Respiratory: Lungs Clear, Normal Breath Sounds Cardiovascular: Regular Rate, Rhythm Neurologic/Psychiatric: Alert, Oriented x3, No Motor/Sensory Deficits, Normal Mood/Affect Results/Procedures Lab Laboratory Tests 05/27/21 06:15 Patient resulted labs reviewed. Assessment/Plan Assessment and Plan Assess & Plan/Chief Complaint Assessment: Intractable nausea and vomiting COVID-19 pneumonia without hypoxia meets criteria for antibody infusion Elevated BMI 31 Episode of hematemesis prompting consult with Dr. BECKMAN Plan: IV fluids Antibody infusion Antiemetics 05/25/2021: Scopolamine patch Reglan scheduled Dr. BECKMAN appreciated 05/26/2021: Ultrasound Antiemetics 05/27/2021: Patient doing better Diagnosis/Problems Diagnosis/Problems (1) Intractable nausea and vomiting (2) COVID-19 virus infection Status: Acute COURTNEY MULLINS DO May 27, 2021 06:06
[2021-05-27 06:39] LABS: BASOPHILS % (AUTO) 0 % (0-10); EOSINOPHILS % (AUTO) 0 % (0-10); HEMATOCRIT 39 % (35-52); LYMPHOCYTES # (AUTO) 1.8 10^3/uL (1.0-4.0); LYMPHOCYTES % (AUTO) 18 % (12-44); MEAN CORPUSCULAR HEMOGLOBIN 28 pg (25-34); MEAN CORPUSCULAR HGB CONC 33 g/dL (32-36); MEAN CORPUSCULAR VOLUME 85 fL (80-99); MONOCYTES # (AUTO) 0.6 10^3/uL (0.0-1.0); MONOCYTES % (AUTO) 6 % (0-12); NEUTROPHILS # (AUTO) 7.6 10^3/uL (1.8-7.8); NEUTROPHILS % (AUTO) 74 % (42-75); PLATELET COUNT 261 10^3/uL (130-400); WHITE BLOOD COUNT 10.3 10^3/uL (4.3-11.0)
[2021-05-27 06:41] LABS: ALBUMIN 3.9 GM/DL (3.2-4.5); POTASSIUM 3.3 MMOL/L (3.6-5.0)
[2021-05-27 06:43] LABS: CALCIUM 8.7 MG/DL (8.5-10.1)
[2021-05-27 06:44] LABS: TOTAL PROTEIN 6.5 GM/DL (6.4-8.2)
[2021-05-27 06:46] LABS: BILIRUBIN,TOTAL 0.8 MG/DL (0.1-1.0)
[2021-05-27 06:47] LABS: CREATININE SERUM 0.66 MG/DL (0.60-1.30)
[2021-05-27] MEDS: PANTOPRAZOLE 40 MG (PROTONIX) VIAL IV SCH (08:27)
[2021-05-27] MEDS: ONDANSETRON 4 MG/2 ML (SDV) Z0FRAN IV PRN ×2 (08:33→13:35)
[2021-05-27] MEDS: DOCUSATE SODIUM 100 MG (COLACE) CAP PO SCH ×2 (09:00→23:18)
[2021-05-27] MEDS: SENNOSIDES 8.6 MG (SENOKOT) TAB PO SCH ×2 (09:00→23:18)
[2021-05-27] MEDS ORDERED: MAGNESIUM 1 GM/100 ML IVPB 100 ML IV ONE (11:45)
[2021-05-27] MEDS: ENOXAPARIN 40 MG/0.4 ML (LOVENOX) SYR SC SCH (12:43)
[2021-05-27] MEDS: NS IV 500 ML 500 ML IV SCH (13:34)
[2021-05-27] MEDS: ALPRAZolam 0.25 MG (XANAX) TAB PO PRN (13:38)
[2021-05-27] MEDS ORDERED: ALPRAZolam 1 MG (XANAX) TAB PO PRN (13:45)
[2021-05-28 04:14] VITALS: BP 132/74
[2021-05-28] MEDS: METOCLOPRAMIDE INJ 10 MG/2 ML (REGLAN) IVP SCH ×2 (05:48→12:23)
--- NOTE | 2021-05-28 06:58 | Progress Note - Hospitalist ---
Subjective HPI/CC On Admission Date Seen by Provider: May 28, 2021 CC: Nausea and vomiting HPI: This is a 25yoWF clinic Pt of [facility] who presents to the hospital due to nausea and vomiting, she was just diagnosed with Covid and although she is not hypoxic and CXR was normal, she met criteria for antibody infusion so she will be given that along with IV fluids, potassium supplementation and antiemetics. CT scan was negative since there was a suspicion for bowel obstruction. Objective Exam Vital Signs Vital Signs Date Time Temp Pulse Resp B/P (MAP) Pulse Ox O2 Delivery O2 Flow Rate FiO2 05/28/21 12:47 36.8 66 16 116/72 (87) 96 Room Air Capillary Refill : Less Than 3 Seconds Results/Procedures Lab Laboratory Tests 05/28/21 08:38 Patient resulted labs reviewed. Assessment/Plan Assessment and Plan Assess & Plan/Chief Complaint Assessment: Intractable nausea and vomiting COVID-19 pneumonia without hypoxia meets criteria for antibody infusion Elevated BMI 31 Episode of hematemesis prompting consult with Dr. BECKMAN Plan: IV fluids Antibody infusion Antiemetics 05/25/2021: Scopolamine patch Reglan scheduled Dr. BECKMAN appreciated 05/26/2021: Ultrasound Antiemetics 05/27/2021: Patient doing better Diagnosis/Problems Diagnosis/Problems (1) Intractable nausea and vomiting (2) COVID-19 virus infection Status: Acute COURTNEY MULLINS DO May 28, 2021 06:58
[2021-05-28] MEDS: NS IV 500 ML 500 ML IV SCH (07:58)
[2021-05-28 08:33] VITALS: BP 119/62
[2021-05-28] MEDS: SENNOSIDES 8.6 MG (SENOKOT) TAB PO SCH (09:00)
[2021-05-28] MEDS: DOCUSATE SODIUM 100 MG (COLACE) CAP PO SCH (09:00)
[2021-05-28] MEDS: PANTOPRAZOLE 40 MG (PROTONIX) VIAL IV SCH (09:00)
[2021-05-28 09:01] LABS: BASOPHILS % (AUTO) 1 % (0-10); EOSINOPHILS # (AUTO) 0.2 10^3/uL (0.0-0.3); EOSINOPHILS % (AUTO) 2 % (0-10); HEMATOCRIT 44 % (35-52); HEMOGLOBIN 14.4 g/dL (11.5-16.0); LYMPHOCYTES # (AUTO) 2.4 10^3/uL (1.0-4.0); LYMPHOCYTES % (AUTO) 28 % (12-44); MEAN CORPUSCULAR HEMOGLOBIN 28 pg (25-34); MEAN CORPUSCULAR HGB CONC 33 g/dL (32-36); MEAN CORPUSCULAR VOLUME 85 fL (80-99); MEAN PLATELET VOLUME 10.9 fL (9.0-12.2); MONOCYTES # (AUTO) 0.6 10^3/uL (0.0-1.0); MONOCYTES % (AUTO) 7 % (0-12); NEUTROPHILS # (AUTO) 5.1 10^3/uL (1.8-7.8); NEUTROPHILS % (AUTO) 60 % (42-75); PLATELET COUNT 254 10^3/uL (130-400); WHITE BLOOD COUNT 8.5 10^3/uL (4.3-11.0)
[2021-05-28 09:11] LABS: ALBUMIN 3.9 GM/DL (3.2-4.5); POTASSIUM 3.1 MMOL/L (3.6-5.0)
[2021-05-28 09:14] LABS: TOTAL PROTEIN 6.6 GM/DL (6.4-8.2)
[2021-05-28 09:15] LABS: BILIRUBIN,TOTAL 0.7 MG/DL (0.1-1.0)
[2021-05-28 09:17] LABS: CREATININE SERUM 0.77 MG/DL (0.60-1.30)
[2021-05-28] MEDS ORDERED: PATCH REMOVAL TP SCH (12:00)
[2021-05-28] MEDS ORDERED: SCOPOLAMINE 1.5 MG (TRANSDERM-SCOP) PATCH TD SCH (12:00)
[2021-05-28] MEDS: ENOXAPARIN 40 MG/0.4 ML (LOVENOX) SYR SC SCH (12:23)
[2021-05-28 12:47] VITALS: BP 116/72
--- NOTE | 2021-05-28 13:08 | Discharge Summary ---
Discharge Summary Hospital Course Was the Problem List Reviewed?: Yes Problems/Dx: (1) Intractable nausea and vomiting (2) COVID-19 virus infection Status: Acute Hospital Course Date of Admission: May 24, 2021 at 11:37 Admission Diagnosis : [facility] Date of Dis[facility]: 05/28/21 Discharge Diagnosis: Refractory nausea and vomiting, COVID-19 without evidence of hypoxia meeting criteria for monoclonal antibody infusion Hospital Course: Patient had a lengthy hospital course due to refractory nausea and vomiting from COVID-19 infection. She had no evidence of hypoxia so she met criteria for the monoclonal antibody infusion which helped tremendously. Patient was ultimately able to advance her diet and she was able to be discharged. Labs and Pending Lab Test: Laboratory Tests 05/28/21 08:38: White Blood Count 8.5, Red Blood Count 5.16H, Hemoglobin 14.4, Hematocrit 44, Mean Corpuscular Volume 85, Mean Corpuscular Hemoglobin 28, Mean Corpuscular Hemoglobin Concent 33, Red Cell Distribution Width 12.4, Platelet Count 254, Mean Platelet Volume 10.9, Immature Granulocyte % (Auto) 2, Neutrophils (%) (Auto) 60, Lymphocytes (%) (Auto) 28, Monocytes (%) (Auto) 7, Eosinophils (%) (Auto) 2, Basophils (%) (Auto) 1, Neutrophils # (Auto) 5.1, Lymphocytes # (Auto) 2.4, Monocytes # (Auto) 0.6, Eosinophils # (Auto) 0.2, Basophils # (Auto) 0.0, Immature Granulocyte # (Auto) 0.1, Sodium Level 139, Potassium Level 3.1L, Chloride Level 103, Carbon Dioxide Level 24, Anion Gap 12, Blood Urea Nitrogen 10, Creatinine 0.77, Estimat Glomerular Filtration Rate 93, BUN/Creatinine Ratio 13, Glucose Level 82, Calcium Level 9.0, Corrected Calcium 9.1, Total Bilirubin 0.7, Aspartate Amino Transf (AST/SGOT) 67H, Alanine Aminotransferase (ALT/SGPT) 182H, Alkaline Phosphatase 61, Total Protein 6.6, Albumin 3.9 Home Meds Active Reported Ibuprofen 200 Mg Tablet 400 Mg PO Q6H PRN Hair Vitamin (Multivitamins with Iron) 1 Each Tablet 1 Each PO DAILY Ondansetron Odt (Ondansetron) 4 Mg Tab.rapdis 4 Mg PO Q4H PRN Norethindrone 0.35 Mg Tablet 0.35 Mg PO HS Assessment/Pt Instructions PCP in 1 week Discharge Planning: <30 minutes discharge planning Discharge Instructions Discharge Diet: No Restrictions Activity as Tolerated: Yes Discharge Physical Examination Vital Signs Vital Signs Date Time Temp Pulse Resp B/P (MAP) Pulse Ox O2 Delivery O2 Flow Rate FiO2 05/28/21 12:47 36.8 66 16 116/72 (87) 96 Room Air General Appearance: No Apparent Distress, WD/WN, Chronically ill Allergies: Coded Allergies: amoxicillin trihydrate (Verified Allergy, Mild, 11/12/11) ibuprofen (Unverified Adverse Reaction, Unknown, 03/24/18) Aggravates IBS Discharge Summary Date of Admission May 24, 2021 at 11:37 Date of Discharge Discharge Date: May 28, 2021 Admission Diagnosis Assessment: Intractable nausea and vomiting COVID-19 pneumonia without hypoxia meets criteria for antibiotic infusion Elevated BMI 31 Plan: IV fluids Antibiotic infusion Antiemetics Discharge Diagnosis Assessment: Intractable nausea and vomiting COVID-19 pneumonia without hypoxia meets criteria for antibody infusion Elevated BMI 31 Episode of hematemesis prompting consult with Dr. BECKMAN Plan: IV fluids Antibody infusion Antiemetics 05/25/2021: Scopolamine patch Reglan scheduled Dr. BECKMAN appreciated 05/26/2021: Ultrasound Antiemetics 05/27/2021: Patient doing better (1) Intractable nausea and vomiting (2) COVID-19 virus infection Status: Acute COURTNEY MULLINS DO May 28, 2021 13:08
[2021-05-28 14:24] VITALS: BP 116/72
== END 2021-05-28 15:10 | disposition home or self-care (01) ==
LOC: EDUNIT# 08:29 → ER 08:31 → 4TH 11:37
PROVIDERS: ADMIT Internal Medicine; ATTEND Internal Medicine
DX: U07.1 COVID-19 (principal); R11.2 Nausea with vomiting, unspecified; G43.909 Migraine, unspecified, not intractable, without status migrainosus; R10.9 Unspecified abdominal pain; K59.09 Other constipation; F90.9 Attention-deficit hyperactivity disorder, unspecified type; E87.6 Hypokalemia; Z79.899 Other long term (current) drug therapy; K58.9 Irritable bowel syndrome, unspecified; Z90.89 Acquired absence of other organs
CPT/HCPCS: 74177; 76705; 80053 ×5; 81000; 83690; 83735; 84703; 85025 ×5; 86141; 99284; G0378; 36415

== ENCOUNTER 2022-01-24 14:59 | Emergency (ER) | payer MEDICAID ==
[~2022-01-24] VITALS: Ht 175.2 cm; Wt 87.5 kg
[~2022-01-24 14:59] MED LIST changes: +IBUP-2473 PO; +MULT-158 PO
[2022-01-24 15:32] LABS: BILIRUBIN,URINE NEGATIVE (NEGATIVE); CLARITY,URINE CLEAR; COLOR,URINE YELLOW; GLUCOSE, URINE (UA) NEGATIVE (NEGATIVE); KETONES,URINE 3+ (NEGATIVE); LEUKOCYTE ESTERASE ,URINE TRACE (NEGATIVE); NITRITE,URINE NEGATIVE (NEGATIVE); PH,URINE 6.5 (5-9); PROTEIN,URINE 1+ (NEGATIVE)
[2022-01-24] MEDS ORDERED: NS IV 1000 ML 1,000 ML IV ONE (16:00)
[2022-01-24] MEDS ORDERED: ONDANSETRON 4 MG/2 ML (SDV) Z0FRAN IVP ONE (16:00)
--- NOTE | 2022-01-24 16:03 | ED General ---
General Chief Complaint: COVID19 Suspect/Confirmed Stated Complaint: N/V,FEVER,COUGH,CONGESTION,ANSARI,BODY ACHES Nursing Triage Note: PT TO RM 9 WITH CC OF N,V, FEVER, BODYACHES, COUGH, ANSARI, AND CONGESTION SINCE LAST NIGHT. PT A&OX4 Source of Information: Patient Exam Limitations: No Limitations History of Present Illness Date Seen by Provider: Jan 24, 2022 Time Seen by Provider: 16:03 Allergies and Home Medications Allergies Coded Allergies: amoxicillin trihydrate (Verified Allergy, Mild, 11/12/11) ibuprofen (Unverified Adverse Reaction, Unknown, 03/24/18) Aggravates IBS Patient Home Medication List Ibuprofen (Ibuprofen) 200 Mg Tablet, 400 MG PO Q6H PRN for PAIN-MILD (1-4) OR TEMPATURE, (Reported) Entered as Reported by: BRADEN DÍAZ on 05/25/21 0830 Multivitamins with Iron (Hair Vitamin) 1 Each Tablet, 1 EACH PO DAILY, (Repo rted) Entered as Reported by: BRADEN DÍAZ on 05/25/21 0830 Norethindrone (Norethindrone) 0.35 Mg Tablet, 0.35 MG PO HS, (Reported) Entered as Reported by: ERICH SHARMA on 01/02/212 Ondansetron (Ondansetron Odt) 4 Mg Tab.rapdis, 4 MG PO Q4H PRN for NAUSEA/VOMITING-1ST LINE, (Reported) Entered as Reported by: BRADEN DÍAZ on 05/25/21 0829 Past Zuyttcw-Tjrwpj-Marljo Hx Patient Social History Tobacco Use?: No Substance use?: No Alcohol Use?: No Pt feels they are or have been: No Immunizations Up To Date Tetanus Booster (TDap): Less than 5yrs First/Initial COVID19 Vaccinat: END OF DECEMBER- Second COVID19 Vaccination Clint: NO Third COVID19 Vaccination Date: Seasonal Allergies Seasonal Allergies: No Past Medical History Surgery/Hospitalization HX: T/A Surgeries: Yes Adenoidectomy, Tonsillectomy Respiratory: No Cardiac: No Neurological: Yes Headaches /Migraines 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 Disorders: No Female 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 Disorders: Denies Sexually Transmitted Disease: No 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: No Gastrointestinal: Yes Chronic Constipation, Irritable Bowel Musculoskeletal: Yes (CHRONIC PAIN IN R ANKLE) Endocrine: No HEENT: Yes (S/P TONSILLECTOMY) Cancer: No Psychosocial: Yes ADD/ADHD Integumentary: No Blood Disorders: No Physical Exam Vital Signs Vital Signs - First Documented 01/24/22 15:12 Temp 36.9 Pulse 84 Resp 20 B/P (MAP) 117/78 (91) Pulse Ox 99 O2 Delivery Room Air Capillary Refill : Less Than 3 Seconds Height, Weight, BMI Height: 5'8.00" Weight: 160lbs. oz. 72.504440ni; 28.00 BMI Method:Stated Progress/Results/Core Measures Suspected Sepsis SIRS Temperature: Pulse: 84 Respiratory Rate: 20 Laboratory Tests 01/24/22 16:24: White Blood Count 19.5H Blood Pressure 117 /78 Mean: 91 Laboratory Tests 01/24/22 16:24: Creatinine 0.88, Platelet Count 337, Total Bilirubin 0.5 Results/Orders Lab Results Laboratory Tests Test 01/24/22 15:15 01/24/22 15:20 01/24/22 16:24 Range/Units Urine Color YELLOW Urine Clarity CLEAR Urine pH 6.5 5-9 Urine Specific [place] 1.020 1.016-1.022 Urine Protein 1+ H NEGATIVE Urine Glucose (UA) NEGATIVE NEGATIVE Urine Ketones 3+ H NEGATIVE Urine Nitrite NEGATIVE NEGATIVE Urine Bilirubin NEGATIVE NEGATIVE Urine Urobilinogen 0.2 < = 1.0 MG/DL Urine Leukocyte Esterase TRACE H NEGATIVE Urine RBC (Auto) NEGATIVE NEGATIVE Urine RBC NONE /HPF Urine WBC NONE /HPF Urine Crystals NONE /LPF Urine Bacteria NEGATIVE /HPF Urine Casts NONE /LPF Urine Mucus SMALL H /LPF Urine Culture Indicated NO Influenza Type A (RT-PCR) Not Detected Not Detecte Influenza Type B (RT-PCR) Not Detected Not Detecte SARS-CoV-2 RNA (RT-PCR) Not Detected Not Detecte Group A Streptococcus Screen NEGATIVE NEGATIVE White Blood Count 19.5 H 4.3-11.0 10^3/uL Red Blood Count 4.78 3.80-5.11 10^6/uL Hemoglobin 14.0 11.5-16.0 g/dL Hematocrit 42 35-52 % Mean Corpuscular Volume 87 80-99 fL Mean Corpuscular Hemoglobin 29 25-34 pg Mean Corpuscular Hemoglobin Concent 34 32-36 g/dL Red Cell Distribution Width 12.9 10.0-14.5 % Platelet Count 337 130-400 10^3/uL Mean Platelet Volume 9.9 9.0-12.2 fL Immature Granulocyte % (Auto) 1 % Neutrophils (%) (Auto) 91 H 42-75 % Lymphocytes (%) (Auto) 5 L 12-44 % Monocytes (%) (Auto) 3 0-12 % Eosinophils (%) (Auto) 0 0-10 % Basophils (%) (Auto) 0 0-10 % Neutrophils # (Auto) 17.6 H 1.8-7.8 10^3/uL Lymphocytes # (Auto) 1.1 1.0-4.0 10^3/uL Monocytes # (Auto) 0.7 0.0-1.0 10^3/uL Eosinophils # (Auto) 0.0 0.0-0.3 10^3/uL Basophils # (Auto) 0.0 0.0-0.1 10^3/uL Immature Granulocyte # (Auto) 0.1 0.0-0.1 10^3/uL Neutrophils % (Manual) 93 % Lymphocytes % (Manual) 4 % Monocytes % (Manual) 3 % Blood Morphology Comment NORMAL Sodium Level 142 135-145 MMOL/L Potassium Level 3.7 3.6-5.0 MMOL/L Chloride Level 107 98-107 MMOL/L Carbon Dioxide Level 23 21-32 MMOL/L Anion Gap 12 5-14 MMOL/L Blood Urea Nitrogen 11 7-18 MG/DL Creatinine 0.88 0.60-1.30 MG/DL Estimat Glomerular Filtration Rate 94 BUN/Creatinine Ratio 13 Glucose Level 137 H 70-105 MG/DL Calcium Level 9.9 8.5-10.1 MG/DL Corrected Calcium 8.5-10.1 MG/DL Total Bilirubin 0.5 0.1-1.0 MG/DL Aspartate Amino Transf (AST/SGOT) 13 5-34 U/L Alanine Aminotransferase (ALT/SGPT) 13 0-55 U/L Alkaline Phosphatase 55 40-136 U/L Total Protein 7.8 6.4-8.2 GM/DL Albumin 4.7 H 3.2-4.5 GM/DL Lipase 16 8-78 U/L My Orders Orders - [facility] [employer] Covid 19 Inhouse Test (01/24/22 15:05) Influenza A And B By Pcr (01/24/22 15:05) Rapid Strep A Screen (01/24/22 15:05) Urine Bedside (01/24/22 15:05) Ua Culture If Indicated (01/24/22 15:05) Ed Iv/Invasive Line Start (01/24/22 15:59) Ondansetron Injection (Zofran Injectio (01/24/22 16:00) Ns Iv 1000 Ml (Sodium Chloride 0.9%) (01/24/22 16:00) Cbc With Automated Diff (01/24/22 16:01) Comprehensive Metabolic Panel (01/24/22 16:01) Lipase (01/24/22 16:01) Ct Abdomen/Pelvis Wo (01/24/22 16:01) Ketorolac Injection (Toradol Injection) (01/24/22 16:15) Manual Differential (01/24/22 16:24) Chest Pa/Lat (2 View) (01/24/22 16:55) Medications Given in ED Current Medications Medications Dose Ordered Sig/Lety Route Start Time Stop Time Status Last Admin Dose Admin Ketorolac Tromethamine 30 mg ONCE ONCE IVP 01/24/22 16:15 01/24/22 16:16 DC 01/24/22 16:28 30 MG Ondansetron HCl 4 mg ONCE ONCE IVP 01/24/22 16:00 01/24/22 16:01 DC 01/24/22 16:28 4 MG Sodium Chloride 1,000 ml @ 0 mls/hr Q0M ONCE IV 01/24/22 16:00 01/24/22 16:01 DC 01/24/22 16:26 1,000 MLS/HR Vital Signs/I&O 01/24/22 15:12 Temp 36.9 Pulse 84 Resp 20 B/P (MAP) 117/78 (91) Pulse Ox 99 O2 Delivery Room Air Capillary Refill : Less Than 3 Seconds Blood Pressure Mean: 91 Departure Impression Primary Impression: Leukocytosis Additional Impression: Abdominal pain Disposition: 01 HOME, SELF-CARE Condition: Improved Departure-Patient Inst. Decision time for Depature: 17:49 Referrals: [facility] (PCP/Family) Primary Care Physician Patient Instructions: Nausea and Vomiting, Adult (DC) Add. Discharge Instructions: Plan: 1. Drink clear liquids and advance slowly as tolerated. 2. Have close follow up with your doctor. 3. Return to ER for any new, concerning, or worsening symptoms. All discharge instructions reviewed with patient and/or family. Voiced understanding. [facility] [employer] Jan 24, 2022 16:03
[2022-01-24] MEDS ORDERED: KETOROLAC 30 MG/ML VIAL IVP ONE (16:15)
--- NOTE | 2022-01-24 16:26 | Diagnostic Imaging Report ---
PROCEDURE: CT abdomen and pelvis without contrast. TECHNIQUE: Multiple contiguous axial images were obtained through the abdomen and pelvis without the use of intravenous contrast. Auto Exposure Controls were utilized during the CT exam to meet ALARA standards for radiation dose reduction. INDICATION: Nausea and vomiting. Fever. Body aches. Cough. Headache. COMPARISON: 05/24/2021. FINDINGS: Included portions of the lung bases are clear. CT ABDOMEN: Normal appendix is identified. Small bowel loops are nondistended. The kidneys, adrenal glands, spleen, pancreas, and liver have an unremarkable noncontrast CT appearance. There is no loculated fluid collection, free fluid, or free air within the abdomen. No abnormal mesenteric or retroperitoneal adenopathy is seen. Osseous structures show no acute abnormalities. CT PELVIS: Urinary bladder is unopacified and minimally distended. No calculi are seen within the urinary bladder. There is no loculated fluid collection, free fluid, or free air within the pelvis. No abnormal lymph nodes are identified. Osseous structures show no acute abnormalities. IMPRESSION: 1. Unremarkable noncontrast CT of the abdomen and pelvis. Dictated by: Dictated on workstation # [id number]
[2022-01-24 16:34] LABS: BACTERIA,URINE NEGATIVE /HPF
[2022-01-24 16:37] LABS: BASOPHILS % (AUTO) 0 % (0-10); EOSINOPHILS % (AUTO) 0 % (0-10); HEMATOCRIT 42 % (35-52); LYMPHOCYTES # (AUTO) 1.1 10^3/uL (1.0-4.0); LYMPHOCYTES % (AUTO) 5 % (12-44); MEAN CORPUSCULAR HEMOGLOBIN 29 pg (25-34); MEAN CORPUSCULAR HGB CONC 34 g/dL (32-36); MEAN CORPUSCULAR VOLUME 87 fL (80-99); MEAN PLATELET VOLUME 9.9 fL (9.0-12.2); MONOCYTES # (AUTO) 0.7 10^3/uL (0.0-1.0); MONOCYTES % (AUTO) 3 % (0-12); NEUTROPHILS # (AUTO) 17.6 10^3/uL (1.8-7.8); NEUTROPHILS % (AUTO) 91 % (42-75); PLATELET COUNT 337 10^3/uL (130-400); WHITE BLOOD COUNT 19.5 10^3/uL (4.3-11.0)
[2022-01-24 17:01] LABS: ALBUMIN 4.7 GM/DL (3.2-4.5); CHLORIDE 107 MMOL/L (98-107); POTASSIUM 3.7 MMOL/L (3.6-5.0); SODIUM 142 MMOL/L (135-145)
[2022-01-24 17:03] LABS: CALCIUM 9.9 MG/DL (8.5-10.1); LYMPHOCYTES % (MANUAL) 4 %; MONOCYTES % (MANUAL) 3 %; NEUTROPHILS % (MANUAL) 93 %; RBC MORPH NORMAL
[2022-01-24 17:04] LABS: GLUCOSE 137 MG/DL (70-105); TOTAL PROTEIN 7.8 GM/DL (6.4-8.2)
[2022-01-24 17:05] LABS: BILIRUBIN,TOTAL 0.5 MG/DL (0.1-1.0); CARBON DIOXIDE 23 MMOL/L (21-32)
[2022-01-24 17:07] LABS: ALKALINE PHOSPHATASE 55 U/L (40-136); CREATININE SERUM 0.88 MG/DL (0.60-1.30); GFR ESTIMATED 94
[2022-01-24 17:08] LABS: BUN/CREATININE RATIO 13
[2022-01-24 17:10] LABS: ALANINE AMINOTRANSFERASE 13 U/L (0-55)
[2022-01-24 17:11] LABS: LIPASE 16 U/L (8-78)
--- NOTE | 2022-01-24 17:22 | Diagnostic Imaging Report ---
Indication: Cough and fever PA and lateral chest Heart size and pulmonary vascularity are normal. Lungs are clear. There are no effusions or pneumothoraces. IMPRESSION: No acute abnormalities in the chest Dictated by: Dictated on workstation # [id number]
[2022-01-24 18:20] VITALS: BP 105/67
[2022-01-25] MEDS ORDERED: PANT40TA2 PO (03:45)
[2022-01-25] MEDS ORDERED: ONDA8TAB13 PO (03:45)
[2022-01-25] MEDS ORDERED: METO-310 PO (03:45)
== END 2022-01-24 18:09 | disposition home or self-care (01) ==
LOC: EDUNIT# 14:59 → ER 15:01
DX: D72.829 Elevated white blood cell count, unspecified (principal); R10.9 Unspecified abdominal pain; R11.2 Nausea with vomiting, unspecified; Z20.822 Contact with and (suspected) exposure to COVID-19; Z28.311 Partially vaccinated for COVID-19
CPT/HCPCS: 36415; 71046; 74176; 80053; 81000; 83690; 84703; 85007; 85027; 87430; 87636; 96374; 96375

== ENCOUNTER 2022-01-25 01:35 | Emergency (ER) | payer MEDICAID ==
[~2022-01-25] VITALS: Ht 175.2 cm; Wt 87.5 kg
[2022-01-25] MEDS ORDERED: ONDANSETRON 4 MG/2 ML (SDV) Z0FRAN IVP ONE (01:45)
[2022-01-25] MEDS ORDERED: PANTOPRAZOLE 40 MG (PROTONIX) VIAL IV ONE (01:45)
[2022-01-25] MEDS ORDERED: LACTATED RINGERS 1,000 ML IV ONE ×2 (01:45→02:30)
--- NOTE | 2022-01-25 01:47 | ED General ---
General Stated Complaint: VOMITING W/BLOOD IN VOMIT Source of Information: Patient, Old Records History of Present Illness Date Seen by Provider: Jan 25, 2022 Time Seen by Provider: 01:45 Initial Comments PT ARRIVES VIA POV FROM HOME PT WAS SEEN HERE EARLIER THIS EVENING WITH MULTIPLE COMPLAINTS, THAT BEGAN LAST NIGHT--SUBJECTIVE FEVER, COUGH/CONGESTION, BODY ACHES, NAUSEA/VOMITING WORK UP, INCLUDING LAB,CXR,AND CT SCAN OF ABDOMEN/PELVIS WERE ALL NEGATIVE, EXCEPT FOR LEUKOCYTOSIS. COVID TEST WAS NEGATIVE AT THAT TIME. NO RX GIVEN PT RETURNS WITH CONTINUED C/O NAUSEA AND VOMITING WITH SOME BLOOD IN THE VOMIT STATES SHE DRANK WATER AND 7-UP AFTER SHE GOT HOME, AND CAN'T KEEP ANYTHING DOWN LAST BM WAS 1 WEEK AGO--WHEN ASKED IT THIS WAS NORMAL FOR HER, SHE STATES "IT IS AND IT ISN'T". SHE HAS NOT TAKEN ANYTHING AT ANY TIME FOR THIS PROBLEM HAS ONLY VOIDED ONCE TODAY AND HAD SOME BURNING ON URINATION HAS GENERALIZED ABDOMINAL DISCOMFORT NO KNOWN SICK CONTACTS OR SUSPICIOUS FOODS PT'S ONLY MEDICATION IS HYDROXYZINE FOR "BIPOLAR" --HAS NOT TAKEN EVENING DOSE PT HAS HAD 1 COVID VACCINE--MODERNA 02/08/2021 PCP: SELINA Allergies and Home Medications Allergies Coded Allergies: amoxicillin trihydrate (Verified Allergy, Mild, 11/12/11) ibuprofen (Unverified Adverse Reaction, Unknown, 03/24/18) Aggravates IBS Patient Home Medication List Home Medication List Reviewed: Yes Ibuprofen (Ibuprofen) 200 Mg Tablet, 400 MG PO Q6H PRN for PAIN-MILD (1-4) OR TEMPATURE, (Reported) Entered as Reported by: BRADEN DÍAZ on 05/25/21 0830 Metoclopramide HCl (Reglan) 10 Mg Tablet, 10 MG PO Q6H Prescribed by: BRIANNE RUVALCABA on 01/25/22 0345 Multivitamins with Iron (Hair Vitamin) 1 Each Tablet, 1 EACH PO DAILY, (Reported ) Entered as Reported by: BRADEN DÍAZ on 05/25/21 0830 Norethindrone (Norethindrone) 0.35 Mg Tablet, 0.35 MG PO HS, (Reported) Entered as Reported by: ERICH SHARMA on 01/02/21 289 Ondansetron (Ondansetron Odt) 4 Mg Tab.rapdis, 4 MG PO Q4H PRN for NAUSEA/VOMITING-1ST LINE, (Reported) Entered as Reported by: BRADEN DÍAZ on 05/25/21 08 Ondansetron (Ondansetron Odt) 8 Mg Tab.rapdis, 8 MG PO Q4H PRN for NAUSEA/VO MITING Prescribed by: BRIANNE RUVALCABA on 01/25/22344 Pantoprazole Sodium (Protonix) 40 Mg Tablet.dr, 40 MG PO DAILY Prescribed by: BRIANNE RUVALCABA on 01/25/22344 Review of Systems Review of Systems Constitutional: see HPI, chills, fever EENTM: nose congestion Respiratory: see HPI, cough; No short of breath Cardiovascular: no symptoms reported Gastrointestinal: see HPI, abdominal pain, constipation, loss of appetite, nausea, vomiting 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: see HPI, decreased output Musculoskeletal: see HPI (BODY ACHES) Skin: no symptoms reported Psychiatric/Neurological: See HPI, Headache Hematologic/Lymphatic: No Symptoms Reported Immunological/Allergic: no symptoms reported Past Dailfqu-Odijla-Drflpa Hx Patient Social History Tobacco Use?: No Substance use?: No Alcohol Use?: No Immunizations Up To Date Tetanus Booster (TDap): Less than 5yrs First/Initial COVID19 Vaccinat: 02/08/2021-MODERNA Second COVID19 Vaccination Clint: NO Third COVID19 Vaccination Date: NO Seasonal Allergies Seasonal Allergies: No Past Medical History Surgery/Hospitalization HX: T/A Surgeries: Yes Adenoidectomy, Tonsillectomy Respiratory: No Cardiac: No Neurological: Yes Headaches /Migraines 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 Disorders: No Female 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 Disorders: Denies Sexually Transmitted Disease: No 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: No Gastrointestinal: Yes Chronic Constipation, Irritable Bowel Musculoskeletal: Yes (CHRONIC PAIN IN R ANKLE) Endocrine: No HEENT: Yes (S/P TONSILLECTOMY) Tonsilitis Cancer: No Psychosocial: Yes ADD/ADHD Integumentary: No Blood Disorders: No Physical Exam Vital Signs Vital Signs - First Documented 01/25/22 01:45 Temp 36.8 Pulse 79 Resp 20 B/P (MAP) 137/86 (103) Pulse Ox 97 O2 Delivery Room Air Capillary Refill : Height, Weight, BMI Height: 5'8.00" Weight: 160lbs. oz. 72.614515jf; 28.00 BMI Method:Stated General Appearance: No Apparent Distress, WD/WN, Anxious, Other (ACTIVELY DRY HEAVING INTO A TRASH CAN FROM HOME--THERE IS A SMALL AMOUNT OF MOSTLY WATERY EMESIS WITH A LITTLE BIT OF LIGHT BROWN LIQUID--NO JESÚS BLOOD OR COFFEE GROUND EMESIS. 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 Norm as Tested Skin: Normal Color, Warm/Dry Focused Exam Lactate Level 01/25/22 01:54: Lactic Acid Level 1.40 Lactic Acid Level Laboratory Tests Test 01/25/22 01:54 Lactic Acid Level 1.40 MMOL/L (0.50-2.00) Progress/Results/Core Measures Suspected Sepsis SIRS Temperature: Pulse: Respiratory Rate: Laboratory Tests 01/25/22 01:46: White Blood Count 15.6H Blood Pressure / Mean: 01/25/22 01:54: Lactic Acid Level 1.40 Laboratory Tests 01/25/22 01:46: Creatinine 0.95, INR Comment 1.1, Platelet Count 357, Total Bilirubin 0.6 Results/Orders Lab Results Laboratory Tests Test 01/25/22 01:46 01/25/22 01:54 01/25/22 03:37 Range/Units White Blood Count 15.6 H 4.3-11.0 10^3/uL Red Blood Count 4.55 3.80-5.11 10^6/uL Hemoglobin 13.1 11.5-16.0 g/dL Hematocrit 40 35-52 % Mean Corpuscular Volume 87 80-99 fL Mean Corpuscular Hemoglobin 29 25-34 pg Mean Corpuscular Hemoglobin Concent 33 32-36 g/dL Red Cell Distribution Width 13.2 10.0-14.5 % Platelet Count 357 130-400 10^3/uL Mean Platelet Volume 9.6 9.0-12.2 fL Immature Granulocyte % (Auto) 0 % Neutrophils (%) (Auto) 78 H 42-75 % Lymphocytes (%) (Auto) 16 12-44 % Monocytes (%) (Auto) 6 0-12 % Eosinophils (%) (Auto) 0 0-10 % Basophils (%) (Auto) 0 0-10 % Neutrophils # (Auto) 12.1 H 1.8-7.8 10^3/uL Lymphocytes # (Auto) 2.5 1.0-4.0 10^3/uL Monocytes # (Auto) 1.0 0.0-1.0 10^3/uL Eosinophils # (Auto) 0.0 0.0-0.3 10^3/uL Basophils # (Auto) 0.1 0.0-0.1 10^3/uL Immature Granulocyte # (Auto) 0.0 0.0-0.1 10^3/uL Neutrophils % (Manual) 78 % Lymphocytes % (Manual) 18 % Monocytes % (Manual) 4 % Blood Morphology Comment NORMAL Erythrocyte Sedimentation Rate 7 0-20 MM/HR Prothrombin Time 14.4 12.2-14.7 SEC INR Comment 1.1 0.8-1.4 Activated Partial Thromboplast Time 33 24-35 SEC Sodium Level 143 135-145 MMOL/L Potassium Level 3.6 3.6-5.0 MMOL/L Chloride Level 109 H 98-107 MMOL/L Carbon Dioxide Level 21 21-32 MMOL/L Anion Gap 13 5-14 MMOL/L Blood Urea Nitrogen 12 7-18 MG/DL Creatinine 0.95 0.60-1.30 MG/DL Estimat Glomerular Filtration Rate 86 BUN/Creatinine Ratio 13 Glucose Level 109 H 70-105 MG/DL Calcium Level 9.8 8.5-10.1 MG/DL Corrected Calcium 8.5-10.1 MG/DL Magnesium Level 2.0 1.6-2.4 MG/DL Total Bilirubin 0.6 0.1-1.0 MG/DL Aspartate Amino Transf (AST/SGOT) 12 5-34 U/L Alanine Aminotransferase (ALT/SGPT) 12 0-55 U/L Alkaline Phosphatase 57 40-136 U/L C-Reactive Protein High Sensitivity 0.10 0.00-0.50 MG/DL Total Protein 7.6 6.4-8.2 GM/DL Albumin 4.6 H 3.2-4.5 GM/DL Amylase Level 50 25-125 U/L Lipase 23 8-78 U/L Procalcitonin 0.02 <0.10 NG/ML Serum Alcohol < 10 <10 MG/DL Lactic Acid Level 1.40 0.50-2.00 MMOL/L Urine Color YELLOW Urine Clarity CLEAR Urine pH 6.0 5-9 Urine Specific Stem >=1.030 1.016-1.022 Urine Protein TRACE H NEGATIVE Urine Glucose (UA) NEGATIVE NEGATIVE Urine Ketones 2+ H NEGATIVE Urine Nitrite NEGATIVE NEGATIVE Urine Bilirubin NEGATIVE NEGATIVE Urine Urobilinogen 0.2 < = 1.0 MG/DL Urine Leukocyte Esterase NEGATIVE NEGATIVE Urine RBC (Auto) NEGATIVE NEGATIVE Urine RBC NONE /HPF Urine WBC 0-2 /HPF Urine Squamous Epithelial Cells 5-10 /HPF Urine Crystals NONE /LPF Urine Bacteria TRACE /HPF Urine Casts NONE /LPF Urine Mucus LARGE H /LPF Urine Culture Indicated NO Urine Opiates Screen NEGATIVE NEGATIVE Urine Oxycodone Screen NEGATIVE NEGATIVE Urine Methadone Screen NEGATIVE NEGATIVE Urine Propoxyphene Screen NEGATIVE NEGATIVE Urine Barbiturates Screen NEGATIVE NEGATIVE Ur Tricyclic Antidepressants Screen NEGATIVE NEGATIVE Urine Phencyclidine Screen NEGATIVE NEGATIVE Urine Amphetamines Screen NEGATIVE NEGATIVE Urine Methamphetamines Screen NEGATIVE NEGATIVE Urine Benzodiazepines Screen NEGATIVE NEGATIVE Urine Cocaine Screen NEGATIVE NEGATIVE Urine Cannabinoids Screen NEGATIVE NEGATIVE My Orders Orders - BRIANNE RUVALCABA DO Ed Iv/Invasive Line Start (01/25/22 01:43) Monitor-Rhythm Ecg Trace Only (01/25/22:43) Alcohol (01/25/22:43) Amylase (01/25/22:43) Cbc With Automated Diff (01/25/22:43) Comprehensive Metabolic Panel (01/25/22 01:43) Hs C Reactive Protein (01/25/22:43) Drug Screen Stat (Urine) (01/25/22:43) Lactic Acid Analyzer (01/25/22:43) Lipase (01/25/22:43) Magnesium (01/25/22 01:43) Procalcitonin (Pct) (01/25/22:43) Protime With Inr (01/25/22:43) Partial Thromboplastin Time (01/25/22:43) Ua Culture If Indicated (01/25/22:43) Erythrocyte Sedimentation Rate (01/25/22 01:43) Ed Iv/Invasive Line Start (01/25/22 01:43) Lactated Ringers (Lr 1000 Ml Iv Solution (01/25/22 01:45) Ondansetron Injection (Zofran Injectio (01/25/22 01:45) Pantoprazole Injection (Protonix Injecti (01/25/22 01:45) Manual Differential (01/25/22 01:46) Ed Iv/Invasive Line Start (01/25/22 02:25) Lactated Ringers (Lr 1000 Ml Iv Solution (01/25/22 02:30) Metoclopramide Injection (Reglan Injecti (01/25/22 02:45) Medications Given in ED Current Medications Medications Dose Ordered Sig/Lety Route Start Time Stop Time Status Last Admin Dose Admin Lactated Ringer's 1,000 ml @ 0 mls/hr Q0M ONCE IV 01/25/22 01:45 01/25/22 01:46 DC 01/25/22 01:53 0 MLS/HR Lactated Ringer's 1,000 ml @ 0 mls/hr Q0M ONCE IV 01/25/22 02:30 01/25/22 02:32 DC 01/25/22 02:41 0 MLS/HR Metoclopramide HCl 10 mg ONCE ONCE IVP 01/25/22 02:45 01/25/22 02:46 DC 01/25/22 02:39 10 MG Ondansetron HCl 4 mg ONCE ONCE IVP 01/25/22 01:45 01/25/22 01:46 DC 01/25/22 01:53 4 MG Pantoprazole 40 mg ONCE ONCE IV 01/25/22 01:45 01/25/22 01:46 DC 01/25/22 01:53 40 MG Vital Signs/I&O 01/25/22 01:45 Temp 36.8 Pulse 79 Resp 20 B/P (MAP) 137/86 (103) Pulse Ox 97 O2 Delivery Room Air Capillary Refill : Progress Note : Progress Note GIVEN IV FLUIDS, ZOFRAN, AND PROTONIX PT IS NO LONGER VOMITING OR DRY HEAVING, BUT STATES SHE IS STILL NAUSEATED, REGLAN GIVEN AND ADDITIONAL IV FLUIDS GIVEN PT SLEPT FOR REMAINDER OF ER STAY NAUSEA AND VOMITING RESOLVED PT ABLE TO VOID AFTER 2ND LITER OF FLUIDS Departure Impression Primary Impression: Constipation Additional Impressions: Nausea and vomiting COVID LIKE ILLNESS Disposition: 01 HOME, SELF-CARE Condition: Improved Departure-Patient Inst. Decision time for Depature: 04:00 Referrals: [facility] (PCP/Family) Primary Care Physician Patient Instructions: COVID-19 Home Care/Discharge, COVID-19 Tests, Constipation, Adult ED, Nausea and Vomiting, Adult ED Add. Discharge Instructions: HOME, REST CLEAR LIQUIDS, SIPS AT A TIME--WATER, BROTH, JELLO, GATORADE TOMORROW IF YOU ARE BETTER, ADD BRATS DIET TO CLEAR LIQUIDS--BANANAS, RICE, APPLESAUCE, TOAST, SALTINES TYLENOL AND MOTRIN NEEDED FOR PAIN OR FEVER OVER THE COUNTER MEDICATIONS FOR COUGH AND CONGESTION TAKE MIRALAX EVER 1-2 HOURS UNTIL YOU HAVE A BM, THEN TAKE IT ONCE A DAY EVERY DAY. QUARANTINE YOURSELF AND ALL HOUSEHOLD MEMBERS, AND FOLLOW UP WITH [facility] IN 2 DAYS FOR RETESTING. RETURN TO ER IF SYMPTOMS WORSEN Scripts Pantoprazole Sodium (Protonix) 40 Mg Tablet.dr 40 MG PO DAILY, #15 TAB Prov: BRIANNE RUVALCABA DO 01/25/22 Metoclopramide HCl (Reglan) 10 Mg Tablet 10 MG PO Q6H for Nausea/Vomiting, #10 TAB Prov: BRIANNE RUVALCABA DO 01/25/22 Ondansetron (Ondansetron Odt) 8 Mg Tab.rapdis 8 MG PO Q4H PRN for NAUSEA/VOMITING, #10 TAB Prov: BRIANNE RUVALCABA DO 01/25/22 BRIANNE RUVALCABA DO Jan 25, 2022 01:47
[2022-01-25 01:53] LABS: BASOPHILS # (AUTO) 0.1 10^3/uL (0.0-0.1); BASOPHILS % (AUTO) 0 % (0-10); EOSINOPHILS % (AUTO) 0 % (0-10); HEMATOCRIT 40 % (35-52); HEMOGLOBIN 13.1 g/dL (11.5-16.0); LYMPHOCYTES # (AUTO) 2.5 10^3/uL (1.0-4.0); LYMPHOCYTES % (AUTO) 16 % (12-44); MEAN CORPUSCULAR HEMOGLOBIN 29 pg (25-34); MEAN CORPUSCULAR HGB CONC 33 g/dL (32-36); MEAN CORPUSCULAR VOLUME 87 fL (80-99); MEAN PLATELET VOLUME 9.6 fL (9.0-12.2); MONOCYTES % (AUTO) 6 % (0-12); NEUTROPHILS # (AUTO) 12.1 10^3/uL (1.8-7.8); NEUTROPHILS % (AUTO) 78 % (42-75); PLATELET COUNT 357 10^3/uL (130-400); WHITE BLOOD COUNT 15.6 10^3/uL (4.3-11.0)
[2022-01-25 02:09] LABS: ALBUMIN 4.6 GM/DL (3.2-4.5); CHLORIDE 109 MMOL/L (98-107); POTASSIUM 3.6 MMOL/L (3.6-5.0); SODIUM 143 MMOL/L (135-145)
[2022-01-25 02:10] LABS: CALCIUM 9.8 MG/DL (8.5-10.1)
[2022-01-25 02:11] LABS: AMYLASE 50 U/L (25-125)
[2022-01-25 02:12] LABS: GLUCOSE 109 MG/DL (70-105); INR 1.1 (0.8-1.4); PROTHROMBIN TIME PATIENT 14.4 SEC (12.2-14.7); TOTAL PROTEIN 7.6 GM/DL (6.4-8.2)
[2022-01-25 02:13] LABS: BILIRUBIN,TOTAL 0.6 MG/DL (0.1-1.0); CARBON DIOXIDE 21 MMOL/L (21-32)
[2022-01-25 02:15] LABS: ALKALINE PHOSPHATASE 57 U/L (40-136); CREATININE SERUM 0.95 MG/DL (0.60-1.30); GFR ESTIMATED 86
[2022-01-25 02:16] LABS: BUN/CREATININE RATIO 13
[2022-01-25 02:18] LABS: ALANINE AMINOTRANSFERASE 12 U/L (0-55)
[2022-01-25 02:19] LABS: LIPASE 23 U/L (8-78)
[2022-01-25 02:21] LABS: LYMPHOCYTES % (MANUAL) 18 %; MONOCYTES % (MANUAL) 4 %; NEUTROPHILS % (MANUAL) 78 %; RBC MORPH NORMAL
[2022-01-25] MEDS ORDERED: METOCLOPRAMIDE INJ 10 MG/2 ML (REGLAN) IVP ONE (02:45)
[2022-01-25 02:53] LABS: ERYTHROCYTE SEDIMENTATION RATE 7 MM/HR (0-20)
[2022-01-25 03:43] LABS: BILIRUBIN,URINE NEGATIVE (NEGATIVE); CLARITY,URINE CLEAR; COLOR,URINE YELLOW; GLUCOSE, URINE (UA) NEGATIVE (NEGATIVE); KETONES,URINE 2+ (NEGATIVE); LEUKOCYTE ESTERASE ,URINE NEGATIVE (NEGATIVE); NITRITE,URINE NEGATIVE (NEGATIVE); PROTEIN,URINE TRACE (NEGATIVE)
[2022-01-25] MEDS ORDERED: ONDA8TAB13 PO (03:45)
[2022-01-25] MEDS ORDERED: PANT40TA2 PO (03:45)
[2022-01-25] MEDS ORDERED: METO-310 PO (03:45)
[2022-01-25 03:51] LABS: BACTERIA,URINE TRACE /HPF; WBC,URINE 0-2 /HPF
[2022-01-25 04:01] LABS: AMPHETAMINE SCREEN, URINE NEGATIVE (NEGATIVE); BARBITURATE SCREEN URINE NEGATIVE (NEGATIVE); BENZODIAZEPINES SCREEN URINE NEGATIVE (NEGATIVE); CANNABINOID SCREEN, URINE NEGATIVE (NEGATIVE); COCAINE SCREEN URINE NEGATIVE (NEGATIVE); METHADONE STAT NEGATIVE (NEGATIVE); OPIATE SCREEN URINE NEGATIVE (NEGATIVE); OXYCODONE STAT NEGATIVE (NEGATIVE); PROPOXYPHENE STAT NEGATIVE (NEGATIVE); TRICYCLIC ANTIDEPRESSANTS SCRE NEGATIVE (NEGATIVE)
[2022-01-25 04:05] VITALS: BP 106/52
== END 2022-01-25 05:14 | disposition home or self-care (01) ==
LOC: EDUNIT# 01:35 → ER 01:37
DX: K59.00 Constipation, unspecified (principal)
CPT/HCPCS: 80053; 80306; 81000; 82150; 83605; 83690; 83735; 84145; 85007; 85027; 85610; 85652; 85730; 86141; 93041; 99284; G0480; 36415; 80320

== ENCOUNTER 2022-05-01 06:08 | Emergency (ER) | payer MEDICAID ==
[~2022-05-01 06:08] MED LIST changes: +METO-310 PO; +ONDA8TAB13 PO; +PANT40TA2 PO
--- NOTE | 2022-05-01 06:53 | ED Abdominal Pain ---
General Chief Complaint: Abdominal/GI Problems Stated Complaint: VOMITING,LALO,SOB Nursing Triage Note: PT ARRIVAL TO ER VIA PRIVATE VEHICLE FROM HOME WITH COMPLAINT OF VOMITING X2 HOURS. PT HAS HAD 5-10 EPISODES OF VOMITING IN THE LAST 2 HOURS. PT HAS NO OTHER SYMPTOMS. PATIENT DOES HAVE ABDOMINAL PAIN THAT IS DESCRIBED SHARP AND RATED AT A 10/10. Source of Information: Patient Exam Limitations: No Limitations History of Present Illness Date Seen by Provider: May 01, 2022 Time Seen by Provider: 06:40 Initial Comments Patient is a 26yo female, presents to the ER with a couple of hours of vomiting. She states at least 5 times. Initially she denies abdominal pain but later endorses pain across the mid abdomen. SHe has had a few episodes of diarrhea. No recent "bad" food or sick contacts. She denies fever. No blood in her stool or vomit. No medications take at home for the symptoms - has never had anything quite like this before. She does smoke THC but not daily she says. No URI symptoms. No urinary symptoms. No prior surgeries on her abdomen. She is actively retching into a cowl brought from home when I walk into the room. All other ROS reviewed and negative except as stated. Timing/Duration: 1-3 Hours Severity/Quality: Severe Radiation: No Radiation Associated Symptoms: Nausea/Vomiting Allergies and Home Medications Allergies Coded Allergies: amoxicillin trihydrate (Verified Allergy, Mild, 11/12/11) ibuprofen (Unverified Adverse Reaction, Unknown, 03/24/18) Aggravates IBS Patient Home Medication List Home Medication List Reviewed: Yes Ibuprofen (Ibuprofen) 200 Mg Tablet, 400 MG PO Q6H PRN for PAIN-MILD (1-4) OR TEMPATURE, (Reported) Entered as Reported by: BRADEN DÍAZ on 05/25/21 0830 Metoclopramide HCl (Reglan) 10 Mg Tablet, 10 MG PO Q6H Prescribed by: BRIANNE RUVALCABA on 01/25/22 0345 Multivitamins with Iron (Hair Vitamin) 1 Each Tablet, 1 EACH PO DAILY, (Reported) Entered as Reported by: BRADEN DÍAZ on 05/25/21 0830 Norethindrone (Norethindrone) 0.35 Mg Tablet, 0.35 MG PO HS, (Reported) Entered as Reported by: ERICH SHARMA on 8/07/24 2151 Ondansetron (Ondansetron Odt) 4 Mg Tab.rapdis, 4 MG PO Q4H PRN for NAUSEA/VOMITING-1ST LINE, (Reported) Entered as Reported by: BRADEN DÍAZ on 05/25/21 08 Ondansetron (Ondansetron Odt) 8 Mg Tab.rapdis, 8 MG PO Q4H PRN for NAUSEA/VOMITING Prescribed by: BRIANNE RUVALCABA on 01/25/22 034 Pantoprazole Sodium (Protonix) 40 Mg Tablet.dr, 40 MG PO DAILY Prescribed by: BRIANNE RUVALCABA on 01/25/22 034 Promethazine HCl (Promethazine Tablet) 25 Mg Tablet, 25 MG PO Q6H PRN for NAUSEA/VOMITING Prescribed by: ALEXA JUSTICE on 05/01/22 1022 Review of Systems Review of Systems Constitutional: see HPI Respiratory: No Symptoms Reported Cardiovascular: No Symptoms Reported Gastrointestinal: Denies Blood Streaked Stools; Diarrhea, Nausea; Denies Rectal Bleeding; Vomiting 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: No Symptoms Reported Musculoskeletal: no symptoms reported Skin: no symptoms reported All Other Systems Reviewed Negative Unless Noted: Yes Past Gmnxdjd-Zqilds-Xqjwto Hx Patient Social History Tobacco Use?: No Use of E-Cig and/or Vaping dev: No Substance use?: No Alcohol Use?: No Pt feels they are or have been: No Immunizations Up To Date Tetanus Booster (TDap): Less than 5yrs Influenza Vaccine Up-to-Date: Yes; Up-to-Date First/Initial COVID19 Vaccinat: 02/08/2021-MODERNA Second COVID19 Vaccination Clint: NO Third COVID19 Vaccination Date: NO COVID19 Vaccine Letter Of Credit Document 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: MODERNA Seasonal Allergies Seasonal Allergies: No Past Medical History Surgery/Hospitalization HX: T/A Surgeries: Yes Adenoidectomy, Tonsillectomy Respiratory: No Cardiac: No Neurological: Yes Headaches /Migraines 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 Disorders: No Female 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 Disorders: Denies Sexually Transmitted Disease: No 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: No Gastrointestinal: Yes Chronic Constipation, Irritable Bowel Musculoskeletal: Yes (CHRONIC PAIN IN R ANKLE) Endocrine: No HEENT: Yes (S/P TONSILLECTOMY) Tonsilitis Cancer: No Psychosocial: Yes ADD/ADHD Integumentary: No Blood Disorders: No Physical Exam Vital Signs Vital Signs - First Documented 05/01/22 06:18 Temp 36.9 Pulse 81 Resp 20 B/P (MAP) 125/76 (92) Pulse Ox 100 O2 Delivery Room Air Capillary Refill : Less Than 3 Seconds Height/Weight/BMI Height: 5'8.00" Weight: 160lbs. oz. [id number]; 28.00 BMI Method:Stated General Appearance: WD/WN, mild distress HEENT: PERRL/EOMI Neck: full range of motion Respiratory: lungs clear, normal breath sounds, no respiratory distress, no accessory muscle use Cardiovascular: regular rate, rhythm Peripheral Pulses: 2+ Radial Pulses (R), 2+ Radial Pulses (L) Gastrointestinal: normal bowel sounds, non tender, soft Extremities: normal range of motion, non-tender, normal inspection, normal capillary refill Neurologic/Psychiatric: alert, normal mood/affect, oriented x 3 Skin: normal color, diaphoresis Progress/Results/Core Measures Results/Orders Lab Results Laboratory Tests Test 05/01/22 07:10 Range/Units White Blood Count 14.4 H 4.3-11.0 10^3/uL Red Blood Count 4.81 3.80-5.11 10^6/uL Hemoglobin 13.8 11.5-16.0 g/dL Hematocrit 42 35-52 % Mean Corpuscular Volume 87 80-99 fL Mean Corpuscular Hemoglobin 29 25-34 pg Mean Corpuscular Hemoglobin Concent 33 32-36 g/dL Red Cell Distribution Width 13.2 10.0-14.5 % Platelet Count 307 130-400 10^3/uL Mean Platelet Volume 9.7 9.0-12.2 fL Immature Granulocyte % (Auto) 1 % Neutrophils (%) (Auto) 91 H 42-75 % Lymphocytes (%) (Auto) 5 L 12-44 % Monocytes (%) (Auto) 4 0-12 % Eosinophils (%) (Auto) 0 0-10 % Basophils (%) (Auto) 0 0-10 % Neutrophils # (Auto) 13.0 H 1.8-7.8 10^3/uL Lymphocytes # (Auto) 0.7 L 1.0-4.0 10^3/uL Monocytes # (Auto) 0.5 0.0-1.0 10^3/uL Eosinophils # (Auto) 0.0 0.0-0.3 10^3/uL Basophils # (Auto) 0.0 0.0-0.1 10^3/uL Immature Granulocyte # (Auto) 0.1 0.0-0.1 10^3/uL Neutrophils % (Manual) 90 % Lymphocytes % (Manual) 7 % Monocytes % (Manual) 3 % Eosinophils % (Manual) 0 % Basophils % (Manual) 0 % Band Neutrophils 0 % Blood Morphology Comment NORMAL Sodium Level 142 135-145 MMOL/L Potassium Level 3.2 L 3.6-5.0 MMOL/L Chloride Level 106 98-107 MMOL/L Carbon Dioxide Level 24 21-32 MMOL/L Anion Gap 12 5-14 MMOL/L Blood Urea Nitrogen 10 7-18 MG/DL Creatinine 0.91 0.60-1.30 MG/DL Estimat Glomerular Filtration Rate 90 BUN/Creatinine Ratio 11 Glucose Level 159 H 70-105 MG/DL Calcium Level 9.5 8.5-10.1 MG/DL Corrected Calcium 9.1 8.5-10.1 MG/DL Total Bilirubin 0.8 0.1-1.0 MG/DL Aspartate Amino Transf (AST/SGOT) 15 5-34 U/L Alanine Aminotransferase (ALT/SGPT) 17 0-55 U/L Alkaline Phosphatase 62 40-136 U/L Total Protein 7.4 6.4-8.2 GM/DL Albumin 4.5 3.2-4.5 GM/DL My Orders Orders - ALEXA JUSTICE MD Ed Iv/Invasive Line Start (05/01/22 06:50) Cbc With Automated Diff (05/01/22 06:50) Comprehensive Metabolic Panel (05/01/22 06:50) Urine Bedside (05/01/22 06:50) Ns Iv 1000 Ml (Sodium Chloride 0.9%) (05/01/22 07:00) Metoclopramide Injection (Reglan Injecti (05/01/22 07:00) Diphenhydramine Injection (Benadryl Inje (05/01/22 07:00) Ondansetron Oral Dissolve Tab (Zofran (05/01/22 07:00) Manual Differential (05/01/22 07:10) Promethazine Injection (Phenergan Injec (05/01/22 09:15) Ns Iv 1000 Ml (Sodium Chloride 0.9%) (05/01/22 09:15) Ct Abdomen/Pelvis W (05/01/22 09:11) Iohexol Injection (Omnipaque 350 Mg/Ml 1 (05/01/22 09:30) Received Contrast (Hold Metformin- Contr (05/01/22 09:30) Ns (Ivpb) (Sodium Chloride 0.9% Ivpb Bag (05/01/22 09:30) Sodium Chloride Flush (Catheter Flush Sy (05/01/22 09:30) Dicyclomine Capsule (Bentyl Capsule) (05/01/22 10:35) Medications Given in ED Vital Signs/I&O 05/01/22 05/01/22 05/01/22 06:18 10:47 10:53 Temp 36.9 36.9 36.9 Pulse 81 81 Resp 20 20 B/P (MAP) 125/76 (92) 139/77 Pulse Ox 100 100 O2 Delivery Room Air Room Air Blood Pressure Mean: 92 Progress Progress Note : Progress Note Patient treated in the ED with IVF and antiemetics. Mild leukocytosis on basic lab eval. Normal electrolytes and LFT's. Abdominal exam - non surgical - no rebound or involuntary guarding. Due to the patient's complaint of abdominal pain - CT ordered and found to show signs suggestive of enterocolitis. No acute surgical pathology. Patient did finally have some improvement in her symptoms. Supportive care advised with return precautions given. Diagnostic Imaging Comments [facility], [place] NAME: [facility] REC#: [id number] PT STATUS: REG ER : 1995 PHYSICIAN: ALEXA JUSTICE MD ADMIT DATE: 05/01/22/ER Draft Date of Exam:05/01/22 CT ABDOMEN/PELVIS W PROCEDURE: CT abdomen and pelvis with contrast. TECHNIQUE: Multiple contiguous axial images were obtained through the abdomen and pelvis after administration of intravenous contrast. Auto Exposure Controls were utilized during the CT exam to meet ALARA standards for radiation dose reduction. All CT scans use one or more of the following dose optimizing techniques: automated exposure control, MA and/or KvP adjustment based on patient size and exam type or iterative reconstruction. INDICATION: Vomiting. COMPARISON: Exam compared with study from 01/24/2022. FINDINGS: There is new mild diffuse thickening of the small bowel bourgeois as well as a mild elevated small bowel intraluminal fluid load distally and equivocal thickening of the transverse colon. The segments of thickened bowel showed mild perienteric stranding of the fat. Findings suggest nonspecific enterocolitis without overt obstruction, perforation, or pneumatosis. A small hiatal hernia is present. The stomach was not pathologically distended. Liver, gallbladder, bile ducts, spleen, adrenals, and unobstructed kidneys are normal. Aortoiliac and mesenteric vessels are patent, nonaneurysmal, and nonacute. Uterus, adnexa, and urinary bladder are unremarkable. IMPRESSION: 1. Mild bowel wall thickening and elevated intestinal fluid load, consistent with nonspecific mild generalized enterocolitis without obstruction, perforation, abscess, or pathological air collections. 2. Remaining abdominopelvic solid and hollow viscera are unremarkable. Dictated on workstation # [id number] Dict: 05/01/22 0939 Trans: 05/01/22 0953 [id number] Interpreted by: JASON ARTEAGA Electronically signed by: Departure Impression Primary Impression: Enterocolitis Additional Impression: Nausea and vomiting Qualified Codes: R11.2 - Nausea with vomiting, unspecified Disposition: 01 HOME, SELF-CARE Condition: Improved Departure-Patient Inst. Decision time for Depature: 10:19 Referrals: [facility] [place] (PCP/Family) Primary Care Physician Add. Discharge Instructions: Take the phenergan as needed every 6 hours for vomiting. FOllow a clear liquid diet for the next 12-24 hours. If you are having any diarrhea, you can take over the counter imodium, as long as you do not have a fever. If you have any increased or worsening symptoms please return to the ER for re- evaluation or follow up with your primary care doctor. Scripts Promethazine HCl (Promethazine Tablet) 25 Mg Tablet 25 MG PO Q6H PRN for NAUSEA/VOMITING, #12 TAB Prov: ALEXA JUSTICE MD 05/01/22 Work/School Note: Work Release Form Date Seen in the Emergency Department: May 01, 2022 Return to Work: May 03, 2022 Copy Copies To 1: BEAN RAMOS KATHRYN M MD May 01, 2022 06:53
[2022-05-01] MEDS ORDERED: diphenhydrAMINE 50 MG/ML INJ (BENADRYL) IVP ONE (07:00)
[2022-05-01] MEDS ORDERED: NS IV 1000 ML 1,000 ML IV SCH ×2 (07:00→09:15)
[2022-05-01] MEDS ORDERED: ONDANSETRON 4 MG (ZOFRAN) ORAL DISSOLVE TAB PO STA (07:00)
[2022-05-01] MEDS ORDERED: METOCLOPRAMIDE INJ 10 MG/2 ML (REGLAN) IVP ONE (07:00)
[2022-05-01 07:26] LABS: BASOPHILS % (AUTO) 0 % (0-10); EOSINOPHILS % (AUTO) 0 % (0-10); HEMATOCRIT 42 % (35-52); HEMOGLOBIN 13.8 g/dL (11.5-16.0); LYMPHOCYTES # (AUTO) 0.7 10^3/uL (1.0-4.0); LYMPHOCYTES % (AUTO) 5 % (12-44); MEAN CORPUSCULAR HEMOGLOBIN 29 pg (25-34); MEAN CORPUSCULAR HGB CONC 33 g/dL (32-36); MEAN CORPUSCULAR VOLUME 87 fL (80-99); MEAN PLATELET VOLUME 9.7 fL (9.0-12.2); MONOCYTES # (AUTO) 0.5 10^3/uL (0.0-1.0); MONOCYTES % (AUTO) 4 % (0-12); NEUTROPHILS % (AUTO) 91 % (42-75); PLATELET COUNT 307 10^3/uL (130-400); WHITE BLOOD COUNT 14.4 10^3/uL (4.3-11.0)
[2022-05-01 08:00] LABS: ALBUMIN 4.5 GM/DL (3.2-4.5); BILIRUBIN,TOTAL 0.8 MG/DL (0.1-1.0); CALCIUM 9.5 MG/DL (8.5-10.1); CREATININE SERUM 0.91 MG/DL (0.60-1.30); POTASSIUM 3.2 MMOL/L (3.6-5.0); TOTAL PROTEIN 7.4 GM/DL (6.4-8.2)
[2022-05-01 08:04] LABS: BAND NEUTROPHILS 0 %; BASOPHILS % (MANUAL) 0 %; EOSINOPHILS % (MANUAL) 0 %; LYMPHOCYTES % (MANUAL) 7 %; MONOCYTES % (MANUAL) 3 %; NEUTROPHILS % (MANUAL) 90 %; RBC MORPH NORMAL
[2022-05-01] MEDS ORDERED: PROMETHAZINE INJ 25 MG/ML (PHENERGAN) AMP IVP ONE (09:15)
[2022-05-01] MEDS ORDERED: CATHETER FLUSH 10 ML SYR IV PRN (09:30)
[2022-05-01] MEDS ORDERED: HOLD METFORMIN - RECEIVED CONTRAST 20 ML VIAL IV SCH (09:30)
[2022-05-01] MEDS ORDERED: NS 100 ML (IVPB) BAG IV ONE (09:30)
[2022-05-01] MEDS ORDERED: IOHEXOL 350 MG/ML 100 ML (OMNIPAQUE 350) VIAL IV ONE (09:30)
--- NOTE | 2022-05-01 09:54 | Diagnostic Imaging Report ---
PROCEDURE: CT abdomen and pelvis with contrast. TECHNIQUE: Multiple contiguous axial images were obtained through the abdomen and pelvis after administration of intravenous contrast. Auto Exposure Controls were utilized during the CT exam to meet ALARA standards for radiation dose reduction. All CT scans use one or more of the following dose optimizing techniques: automated exposure control, MA and/or KvP adjustment based on patient size and exam type or iterative reconstruction. INDICATION: Vomiting. COMPARISON: Exam compared with study from 01/24/2022. FINDINGS: There is new mild diffuse thickening of the small bowel bourgeois as well as a mild elevated small bowel intraluminal fluid load distally and equivocal thickening of the transverse colon. The segments of thickened bowel showed mild perienteric stranding of the fat. Findings suggest nonspecific enterocolitis without overt obstruction, perforation, or pneumatosis. A small hiatal hernia is present. The stomach was not pathologically distended. Liver, gallbladder, bile ducts, spleen, adrenals, and unobstructed kidneys are normal. Aortoiliac and mesenteric vessels are patent, nonaneurysmal, and nonacute. Uterus, adnexa, and urinary bladder are unremarkable. IMPRESSION: 1. Mild bowel wall thickening and elevated intestinal fluid load, consistent with nonspecific mild generalized enterocolitis without obstruction, perforation, abscess, or pathological air collections. 2. Remaining abdominopelvic solid and hollow viscera are unremarkable. Dictated by: Dictated on workstation # [id number]
[2022-05-01] MEDS ORDERED: PROM25TA14 PO (10:22)
[2022-05-01] MEDS ORDERED: DICYCLOMINE 10 MG (BENTYL) CAP PO STA (10:35)
[2022-05-01 10:53] VITALS: BP 139/77
== END 2022-05-01 10:53 | disposition home or self-care (01) ==
LOC: EDUNIT# 06:08 → ER 06:13
DX: K52.9 Noninfective gastroenteritis and colitis, unspecified (principal)
CPT/HCPCS: 36415; 74177; 80053; 84703; 85007; 85027

== ENCOUNTER 2022-07-30 18:43 | Emergency (ER) | payer MEDICAID ==
[~2022-07-30] VITALS: Ht 175 cm; Wt 74.0 kg
--- NOTE | 2022-07-30 19:14 | ED Lower Extremity ---
General Chief Complaint: Lower Extremity Stated Complaint: FALL/LEFT KNEE INJURY Source: patient Exam Limitations: no limitations History of Present Illness Date Seen by Provider: Jul 30, 2022 Time Seen by Provider: 19:11 Initial Comments Patient is a 26-year-old female presents ED with right knee pain. Patient states her left knee gave out around 5pm while walking on the sidewalk. She hit her right knee on the sidewalk. She reports pain with bearing weight and walking. She states she has a history of her left knee giving out. She reports fluid that developed behind the knee in the front part of the knee. She reports this is intermittent. Denies of any redness or bruising. She has a contusion and skin abrasion to the right anterior knee with pain with flexion. Denies taking thing for pain. Denies any distal numbness and tingling, obvious bone for me, nausea, vomiting, diarrhea. Allergies and Home Medications Allergies Coded Allergies: amoxicillin trihydrate (Verified Allergy, Mild, 11/12/11) ibuprofen (Unverified Adverse Reaction, Unknown, 03/24/18) Aggravates IBS Patient Home Medication List Home Medication List Reviewed: Yes Ibuprofen (Ibuprofen) 200 Mg Tablet, 400 MG PO Q6H PRN for PAIN-MILD (1-4) OR TEMPATURE, (Reported) Entered as Reported by: BRADEN DÍAZ on 05/25/21 0830 Metoclopramide HCl (Reglan) 10 Mg Tablet, 10 MG PO Q6H Prescribed by: BRIANNE RUVALCABA on 01/25/22 0345 Multivitamins with Iron (Hair Vitamin) 1 Each Tablet, 1 EACH PO DAILY, (Reported) Entered as Reported by: BRADEN DÍAZ on 05/25/21 0830 Norethindrone (Norethindrone) 0.35 Mg Tablet, 0.35 MG PO HS, (Reported) Entered as Reported by: ERICH SHARMA on 01/02/21 2152 Ondansetron (Ondansetron Odt) 4 Mg Tab.rapdis, 4 MG PO Q4H PRN for NAUSEA/V OMITING-1ST LINE, (Reported) Entered as Reported by: BRADEN DÍAZ on 05/25/21 0829 Ondansetron (Ondansetron Odt) 8 Mg Tab.rapdis, 8 MG PO Q4H PRN for NAUSEA/VOMITING Prescribed by: BRIANNE RUVALCABA on 01/25/22 0345 Pantoprazole Sodium (Protonix) 40 Mg Tablet.dr, 40 MG PO DAILY Prescribed by: BRIANNE RUVALCABA on 01/25/22 0345 Promethazine HCl (Promethazine Tablet) 25 Mg Tablet, 25 MG PO Q6H PRN for NAUSEA/VOMITING Prescribed by: ALEXA JUSTICE on 05/01/22 1022 Review of Systems Constitutional: No chills, No diaphoresis, No malaise EENTM: No ear discharge, No blurred vision Respiratory: No cough Cardiovascular: No chest pain, No edema Gastrointestinal: No diarrhea, No nausea, No vomiting 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: No decreased output Musculoskeletal: No back pain; joint pain, joint swelling; No neck pain All Other Systems Reviewed Negative Unless Noted: Yes Past Hqvegcf-Yawzdv-Avsvcf Hx Immunizations Up To Date Tetanus Booster (TDap): Less than 5yrs First/Initial COVID19 Vaccinat: 02/08/2021-MODERNA Second COVID19 Vaccination Clint: NO Third COVID19 Vaccination Date: NO Seasonal Allergies Seasonal Allergies: No Past Medical History Surgery/Hospitalization HX: T/A Surgeries: Yes Adenoidectomy, Tonsillectomy Respiratory: No Cardiac: No Neurological: Yes Headaches /Migraines 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 Disorders: No Female 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 Disorders: Denies Sexually Transmitted Disease: No 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: No Gastrointestinal: Yes Chronic Constipation, Irritable Bowel Musculoskeletal: Yes (CHRONIC PAIN IN R ANKLE) Endocrine: No HEENT: Yes (S/P TONSILLECTOMY) Tonsilitis Cancer: No Psychosocial: Yes ADD/ADHD Integumentary: No Blood Disorders: No Physical Exam Vital Signs Vital Signs - First Documented 07/30/22 19:03 Temp 37.0 Pulse 85 Resp 18 B/P (MAP) 124/72 (89) Pulse Ox 99 O2 Delivery Room Air Capillary Refill : Height, Weight, BMI Height: 5'8.00" Weight: 160lbs. oz. 72.512575lq; 28.00 BMI Method:Stated General Appearance: WD/WN, no apparent distress HEENT: PERRL/EOMI, normal ENT inspection, TMs normal, pharynx normal Neck: non-tender, full range of motion, supple Cardiovascular: regular rate, rhythm, no edema, no gallop, no JVD Respiratory: chest non-tender, lungs clear, normal breath sounds, no respiratory distress, no accessory muscle use Gastrointestinal: normal bowel sounds, non tender, soft, no organomegaly Back: normal inspection, no CVA tenderness Hips: bilateral hip non-tender, bilateral hip normal inspection, bilateral hip no evidence of injury, bilateral hip bone tenderness Knees: right knee pain, right knee soft tissue tenderness, right knee swelling; bilateral knee other (Normal active range of motion the bilateral knee. No laxity with valgus or varus stress. Negative anterior posterior drawer test. 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 Read by the radiologist without any acute abnormality. No specific laxity noted bilateral knees. She has a history of her left knee giving out. Patient able to ambulate. Refused anything for pain. Discussed the PT to help strengthen the knees bilateral. Orthopedic outpatient follow-up in 7 to 10 days for reevaluation. Ice to the right knee to help with swelling. Mmlh-urn-ikfrmfu ibuprofen to help with pain. Discussed further evaluation of the left knee is needed by retail account specialist. Return precaution were discussed with patient Impression Primary Impression: Knee pain Disposition: 01 HOME, SELF-CARE Condition: Stable Departure-Patient Inst. Decision time for Depature: 19:41 Referrals: [facility] (PCP/Family) Primary Care Physician ERIKA WESTON MD Patient Instructions: Knee Pain Add. Discharge Instructions: Recommend Tylenol or naproxen to help with pain. Ice and elevate. Rupert wrap for support. Recommend knee brace for support. Orthopedic outpatient follow-up for further evaluation of the left and right knee. All discharge instructions reviewed with patient and/or family. Voiced understanding. TREY VERGARA Jul 30, 2022 19:14
--- NOTE | 2022-07-30 19:35 | Diagnostic Imaging Report ---
EXAM: KNEE, RIGHT, 3 VIEWS INDICATION: Trauma. Anterior right knee pain. COMPARISON: None. FINDINGS: No fracture or malalignment. Soft tissue shadows are unremarkable. IMPRESSION: Negative right knee radiographs. Dictated by: Dictated on workstation # [id number]
[2022-07-30 19:52] VITALS: BP 110/82
== END 2022-07-30 19:52 | disposition home or self-care (01) ==
LOC: EDUNIT# 18:43 → ER 18:44
DX: S80.211A Abrasion, right knee, initial encounter (principal); Z28.311 Partially vaccinated for COVID-19; Z88.6 Allergy status to analgesic agent; W22.8XXA Striking against or struck by other objects, initial encounter; Y92.480 Sidewalk as the place of occurrence of the external cause; Y93.01 Activity, walking, marching and hiking
CPT/HCPCS: 73562

== ENCOUNTER 2023-02-01 19:29 | Emergency (ER) | payer MEDICAID ==
[~2023-02-01] VITALS: Ht 175.2 cm; Wt 77.1 kg
[~2023-02-01 19:29] MED LIST changes: +L. A1CAP11 PO
--- NOTE | 2023-02-01 19:47 | ED Cough/URI ---
General Chief Complaint: Cough/Cold/Flu Symptoms Stated Complaint: ANSARI, CONGESTION, SORE THROAT, DIZZY Source: patient Exam Limitations: no limitations History of Present Illness Date Seen by Provider: Feb 01, 2023 Time Seen by Provider: 19:45 Initial Comments Patient is a 27-year-old female presents ED with nasal congestion, sinus pres sure, headache, sore throat, dizziness body aches chills weakness. Symptoms started today. She states she felt nauseous 1 episode of vomiting yesterday. Went to work felt sick throughout the day. She has been taken Tylenol without much improvement. She reports runny nose and feeling extremely congested. Denies any chest pain, cough, shortness of breath, diarrhea, fever. Denies of any recent travels or surgeries. No known cardiac history, history of asthma or COPD. Normal urination without pain. No vaginal bleeding. She does not appear toxic. Allergies and Home Medications Allergies Coded Allergies: amoxicillin trihydrate (Verified Allergy, Mild, 11/12/11) ibuprofen (Unverified Adverse Reaction, Unknown, 03/24/18) Aggravates IBS Patient Home Medication List Home Medication List Reviewed: Yes Ibuprofen (Ibuprofen) 200 Mg Tablet, 400 MG PO Q6H PRN for PAIN-MILD (1-4) OR TEMPATURE, (Reported) Entered as Reported by: BRADEN DÍAZ on 05/25/21 0830 L. Acidophilus/Pectin, [place] (Acidophilus Capsule) 7.5 Mg (30 Million Cell)-100 Mg Capsule, 2 EACH PO QID Prescribed by: BRIANNE RUVALCABA on 12/22/22 2301 Metoclopramide HCl (Reglan) 10 Mg Tablet, 10 MG PO Q6H Prescribed by: BRIANNE RUVALCABA on 01/25/22 0345 Multivitamins with Iron (Hair Vitamin) 1 Each Tablet, 1 EACH PO DAILY, (Reported) Entered as Reported by: BRADEN DÍAZ on 05/25/21 0830 Norethindrone (Norethindrone) 0.35 Mg Tablet, 0.35 MG PO HS, (Reported) Entered as Reported by: ERICH SHARMA on 01/02/212151 Ondansetron (Ondansetron Odt) 4 Mg Tab.rapdis, 4 MG PO Q4H PRN for NAUSEA/VOMITING-1ST LINE, (Reported) Entered as Reported by: BRADEN DÍAZ on 05/25/21 0829 Ondansetron (Ondansetron Odt) 8 Mg Tab.rapdis, 8 MG PO Q4H PRN for NAUSEA/VOMITING Prescribed by: BRIANNE RUVALCABA on 01/25/22 034 Ondansetron (Ondansetron Odt) 8 Mg Tab.rapdis, 8 MG PO Q6H Prescribed by: BRIANNE RUVALCABA on 12/22/22 230 Pantoprazole Sodium (Protonix) 40 Mg Tablet.dr, 40 MG PO DAILY Prescribed by: BRIANNE RUAVLCABA on 01/25/22 034 Pantoprazole Sodium (Protonix) 40 Mg Tablet.dr, 40 MG PO DAILY Prescribed by: BRIANNE RUVALCABA on 12/22/22 230 Promethazine HCl (Promethazine Tablet) 25 Mg Tablet, 25 MG PO Q6H PRN for NAUSEA/VOMITING Prescribed by: ALEXA JUSTICE on 05/01/22 1022 Review of Systems Review of Systems Constitutional: chills; No fever; malaise, weakness EENTM: No ear pain, No blurred vision, No double vision Respiratory: No cough Cardiovascular: No chest pain Gastrointestinal: No abdominal pain, No diarrhea, No nausea; vomiting 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: No decreased output, No dysuria, No frequency Musculoskeletal: No back pain, No joint pain Skin: No change in color, No change in hair/nails All Other Systems Reviewed Negative Unless Noted: Yes Past Xmuedtn-Xbnnai-Ivsqjf Hx Patient Social History Use of E-Cig and/or Vaping dev: Yes E-Cig or Vaping type used: Nicotine Substance use?: Unable to obtain Alcohol Use?: Unable to obtain Immunizations Up To Date Tetanus Booster (TDap): Less than 5yrs First/Initial COVID19 Vaccinat: 02/08/2021-MODERNA Second COVID19 Vaccination Clint: NO Third COVID19 Vaccination Date: NO Seasonal Allergies Seasonal Allergies: No Past Medical History Surgery/Hospitalization HX: T/A Surgeries: Yes Adenoidectomy, Tonsillectomy Respiratory: No Cardiac: No Neurological: Yes Headaches /Migraines 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 Disorders: No Female 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 Disorders: Denies Sexually Transmitted Disease: No 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: No Gastrointestinal: Yes Chronic Constipation, Irritable Bowel Musculoskeletal: Yes (CHRONIC PAIN IN R ANKLE) Endocrine: No HEENT: Yes (S/P TONSILLECTOMY) Tonsilitis Cancer: No Psychosocial: Yes ADD/ADHD Integumentary: No Blood Disorders: No Physical Exam Vital Signs - First Documented 02/01/23 19:42 Temp 37.7 Pulse 85 B/P (MAP) 129/90 (103) Pulse Ox 98 O2 Delivery Room Air Capillary Refill : Height: 5'8.00" Weight: 160lbs. oz. 72.158867gl; 25.00 BMI Method:Stated General Appearance: WD/WN, no apparent distress Eyes: Bilateral Eye Normal Inspection, Bilateral Eye PERRL, Bilateral Eye EOMI HEENT: PERRL/EOMI, normal ENT inspection, TMs normal, pharynx normal Neck: non-tender, full range of motion, supple Respiratory: chest non-tender, lungs clear, normal breath sounds, no respiratory distress, no accessory muscle use Cardiovascular: regular rate, rhythm, no edema, no gallop, no JVD Gastrointestinal: normal bowel sounds, non tender, soft, no organomegaly Extremities: normal range of motion, non-tender, normal inspection, no pedal edema 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 Exam otherwise benign. Vital signs stable. Is not appear toxic or septic. Symptoms started mostly today. She did vomit once last night. [place] sick while at work. No chest pain, shortness of breath, cough or abdominal pain. No diarrhea or urinary symptoms. Not concern for . She has been taken Tylenol. No maxillary or frontal sinus tenderness. Oropharynx patent without erythema, swelling, exudate suggesting strep. Bilateral TMs clear. Did offer to swab for COVID and flu which she refused. I do believe that this is most likely viral. Potential exposure. At this time discussed conservative treatment. Continue with Tylenol. Flonase for nasal congestion, Sudafed for sinus pressure. If any worsening pain such as chest pain, shortness of breath, vomiting to return back to ED. She does have Zofran at home. She does not appear septic. Return precaution were discussed Impression Primary Impression: Viral syndrome Disposition: HOME, SELF-CARE Condition: Stable Departure-Patient Inst. Decision time for Depature: 19:46 Referrals: [facility] (PCP/Family) Primary Care Physician Patient Instructions: Viral Syndrome (DC) Add. Discharge Instructions: Recommend Sudafed to help with sinus pressure. Flonase to help with nasal congestion. Continue with Tylenol. Stay hydrated. Clear liquids for the next 2 or 3 days. If any worsening symptoms such as difficulty breathing, chest pain to return back to ED All discharge instructions reviewed with patient and/or family. Voiced understanding. Work/School Note: Work Release Form Date Seen in the Emergency Department: Feb 01, 2023 Return to Work: Feb 04, 2023 TREY VERGARA Feb 01, 2023 19:47
[2023-02-01 19:55] VITALS: BP 129/90
== END 2023-02-01 19:54 | disposition home or self-care (01) ==
LOC: EDUNIT# 19:29 → ER 19:32
DX: B34.9 Viral infection, unspecified (principal); R09.81 Nasal congestion; R51.9 Headache, unspecified; R42 Dizziness and giddiness; R53.1 Weakness; F17.290 Nicotine dependence, other tobacco product, uncomplicated
CPT/HCPCS: 99281

== ENCOUNTER 2023-02-03 14:31 | Emergency (ER) | payer MEDICAID ==
[~2023-02-03] VITALS: Ht 175 cm; Wt 77.0 kg
[2023-02-03] MEDS ORDERED: ACETAMINOPHEN 325 MG TABLET PO ONE (14:45)
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
--- NOTE | 2023-02-03 15:17 | Diagnostic Imaging Report ---
CHEST 1 VIEW, AP/PA ONLY INDICATION: left shoulder pain. COMPARISON: Chest radiograph on 05/03/2013. FINDINGS: Lungs: Normal lung volume. No focal consolidation. Stable pulmonary vasculature. Pleura: No pleural effusion or pneumothorax. Heart and Mediastinum: Cardiomediastinal silhouette and great vessels of the thorax are stable. Osseous Structures and Soft Tissues: No acute osseous abnormality. Normal soft tissues. IMPRESSION: No acute cardiopulmonary process. Dictated by: Dictated on workstation # [id number]
--- NOTE | 2023-02-03 15:24 | Diagnostic Imaging Report ---
EXAMINATION: Left shoulder radiograph. TECHNIQUE: AP, oblique, lateral views of the left shoulder obtained. HISTORY: left shoulder pain COMPARISON: None available. FINDINGS: Alignment is normal. No fracture is seen. Joint spaces are normal. IMPRESSION: 1. No fracture. Dictated by: Dictated on workstation # [id number]
[2023-02-03] MEDS ORDERED: ACHD5005 PO (15:25)
[2023-02-03] MEDS ORDERED: CYCL10TA25 PO (15:25)
[2023-02-03 15:57] VITALS: BP 122/80
[2023-02-03] MEDS ORDERED: ONDA4TAB11 SL (22:04)
== END 2023-02-03 15:57 | disposition home or self-care (01) ==
LOC: EDUNIT# 14:31 → ER 14:33
DX: S00.83XA Contusion of other part of head, initial encounter (principal); S40.212A Abrasion of left shoulder, initial encounter; F17.210 Nicotine dependence, cigarettes, uncomplicated; Y04.8XXA Assault by other bodily force, initial encounter
CPT/HCPCS: 70450; 70486; 71045; 73030

== ENCOUNTER 2023-02-03 20:08 | Emergency (ER) | payer MEDICAID ==
[~2023-02-03] VITALS: Ht 175 cm; Wt 77.0 kg
[~2023-02-03 20:08] MED LIST changes: +ACHD5005 PO; +CYCL10TA25 PO
[2023-02-03] MEDS ORDERED: ONDANSETRON 4 MG ORAL DISSOLVE TABLET PO ONE (21:30)
[2023-02-03] MEDS ORDERED: ORPHENADRINE 60 MG/2 ML AMP (ED ONLY) IM ONE (21:30)
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
[2023-02-03 21:48] VITALS: BP 118/80
[2023-02-03] MEDS ORDERED: ONDA4TAB11 SL (22:04)
== END 2023-02-03 21:50 | disposition home or self-care (01) ==
LOC: EDUNIT# 20:08 → ER 20:10
DX: S06.0X0A Concussion without loss of consciousness, initial encounter (principal); S00.83XA Contusion of other part of head, initial encounter; M25.512 Pain in left shoulder; Z28.311 Partially vaccinated for COVID-19; Y00.XXXA Assault by blunt object, initial encounter
CPT/HCPCS: 99284

== ENCOUNTER 2023-03-23 13:09 | Emergency (ER) | payer MEDICAID ==
[~2023-03-23 13:09] MED LIST changes: +CEPH500T PO; +ONDA4TAB11 SL
--- NOTE | 2023-03-23 13:43 | ED General ---
General Chief Complaint: General Problems/Pain Stated Complaint: VOMITING BLOOD/ 8 WEEKS Nursing Triage Note: PATIENT C/O VOMITING UP BLOOD X 1 MTH WITH BECOMING WORSE TODAY. PATIENT STATES SHE STARTED VOMITING UP BLOOD AFTER SHE WAS DX. WITH COVID LAST MTH. PATIENT STATES IT WAS FIRST INTERM. AND STATES IT HAS BECOME MORE FREQUENT. PATIENT DENIES BEING ON ANY BLOOD THINNERS OR HX. OF BLEEDING DISORDER. PATIENT DENIES ANY PAIN OR HAVING A HX. OF ULCERS. PATIENT C/O INTERM. COUGH. PATIENT STATES SHE VOMITS X 4 DAILY. PATIENT STATES SHE IS 8 WKS . NO ACTIVE VOMITING UPON COMING INTO ER. PATIENT WALKED TO ER ROOM #8 WITH STEADY GAIT. NO S/S OF DISTRESS. Source of Information: Patient Exam Limitations: No Limitations History of Present Illness Date Seen by Provider: Mar 23, 2023 Time Seen by Provider: 13:40 Initial Comments This 27-year-old young lady at approximately 8 weeks gestational age presents to the emergency room with concerns about repeated episodes of vomiting dark red blood. It is sometimes mixed with mucus and sometimes mixed with recently consumed food. This has occurred frequently since having COVID-19 on February 26. She reports symptoms have seemed to worsen in regard to quantity of blood. She denies any throat pain or epistaxis. She denies any history of upper GI problems. She does not have significant pain. She is not on any blood thinning medications. She takes phenergan for nausea and vomiting. She is receiving her obstetrical care at [facility] and her primary care provider is Kika Crabtree. Allergies and Home Medications Allergies Coded Allergies: amoxicillin trihydrate (Verified Allergy, Mild, 11/12/11) ibuprofen (Unverified Adverse Reaction, Unknown, 03/24/18) Aggravates IBS Patient Home Medication List Home Medication List Reviewed: Yes Cephalexin (Cephalexin) 500 Mg Tablet, 500 MG PO BID Prescribed by: JENNIFER ANDREW on 02/26/23 1517 Cyclobenzaprine HCl (Cyclobenzaprine HCl) 10 Mg Tablet, 10 MG PO TID Prescribed by: JENNIFER ANDREW on 02/03/23 1525 Famotidine (Pepcid) 20 Mg Tablet, 20 MG PO BID Prescribed by: NELLY ABRAHAM on 03/23/23 1531 Hydrocodone/Acetaminophen (Hydrocodone-Acetamin 5-325 mg) 5 Mg-325 Mg Tablet, 1 TAB PO Q4H PRN for PAIN-MODERATE (5-7) Prescribed by: JENNIFER ANDREW on 02/03/23 152 Lansoprazole (Lansoprazole) 15 Mg Capsule.dr, 15 MG PO DAILY Prescribed by: NELLY ABRAHAM on 03/23/23 1531 Metoclopramide HCl (Reglan) 10 Mg Tablet, 10 MG PO Q6H Prescribed by: JENNIFER ANDREW on 02/26/23 151 Ondansetron (Ondansetron Odt) 4 Mg Tab.rapdis, 4 MG SL Q4H PRN for NAUSEA/VOMITING Prescribed by: JENNIFER ANDREW on 02/03/232203 Review of Systems Review of Systems Constitutional: no symptoms reported EENTM: no symptoms reported Respiratory: no symptoms reported Cardiovascular: no symptoms reported Gastrointestinal: see HPI 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: no symptoms reported : Yes LMP: Jan 28, 2023 Musculoskeletal: no symptoms reported Skin: no symptoms reported Psychiatric/Neurological: No Symptoms Reported Hematologic/Lymphatic: See HPI Past Ydkoxnc-Scisbq-Giujre Hx Patient Social History Tobacco Use?: Yes Tobacco type used: Cigarettes Smoking Status: Current Someday Smoker Use of E-Cig and/or Vaping dev: Yes E-Cig or Vaping type used: Nicotine Substance use?: Yes Substance type: Marijuana Substance frequency: Once in a while Alcohol Use?: Yes Alcohol Frequency: Rarely Immunizations Up To Date Tetanus Booster (TDap): Less than 5yrs Influenza Vaccine Up-to-Date: No; Not Current First/Initial COVID19 Vaccinat: 02/08/2021-MODERNA Second COVID19 Vaccination Clint: NO Third COVID19 Vaccination Date: NO Seasonal Allergies Seasonal Allergies: No Past Medical History Surgery/Hospitalization HX: T/A ANSARI, CONSTIPATION, IBS, CHRONIC R ANKLE PAIN, ADHD Surgeries: Yes Adenoidectomy, Tonsillectomy Respiratory: No Cardiac: No Neurological: Yes Headaches /Migraines : Yes Last Menstrual Period: Jan 28, 2023 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 Disorders: No Female 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 Disorders: Denies Sexually Transmitted Disease: No 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: No Gastrointestinal: Yes Chronic Constipation, Irritable Bowel Musculoskeletal: Yes (CHRONIC PAIN IN R ANKLE) Endocrine: No HEENT: Yes (S/P TONSILLECTOMY) Tonsilitis Cancer: No Psychosocial: Yes ADD/ADHD Integumentary: No Blood Disorders: No Physical Exam Vital Signs Vital Signs - First Documented 03/23/23 03/23/23 13:14 15:38 Temp 36.9 Pulse 71 Resp 14 B/P (MAP) 104/61 (75) Pulse Ox 100 O2 Delivery Room Air Capillary Refill : Height, Weight, BMI Height: 5'8.00" Weight: 160lbs. oz. 72.066813mj; 25.00 BMI Method:Stated General Appearance: No Apparent Distress, WD/WN HEENT: PERRL/EOMI, Normal ENT Inspection, Other (Scant erythema on the edges of the soft pallate) Neck: Normal Inspection Respiratory: Lungs Clear, Normal Breath Sounds, No Accessory Muscle Use Cardiovascular: Regular Rate, Rhythm, No Edema, No Murmur Gastrointestinal: Normal Bowel Sounds, Non Tender, Soft; No Distended Extremity: Normal Inspection Neurologic/Psychiatric: Alert, Oriented x3, No Motor/Sensory Deficits, Normal Mood/Affect Skin: Normal Color, Warm/Dry Progress/Results/Core Measures Suspected Sepsis SIRS Temperature: Pulse: 71 Respiratory Rate: 14 Laboratory Tests 03/23/23 14:00: White Blood Count 10.8 Blood Pressure 104 /61 Mean: 75 Laboratory Tests 03/23/23 14:00: Creatinine 0.73, INR Comment 1.1, Platelet Count 225, Total Bilirubin 0.8 Results/Orders Lab Results Laboratory Tests Test 03/23/23 14:00 Range/Units White Blood Count 10.8 4.3-11.0 10^3/uL Red Blood Count 4.26 3.80-5.11 10^6/uL Hemoglobin 12.4 11.5-16.0 g/dL Hematocrit 37 35-52 % Mean Corpuscular Volume 87 80-99 fL Mean Corpuscular Hemoglobin 29 25-34 pg Mean Corpuscular Hemoglobin Concent 33 32-36 g/dL Red Cell Distribution Width 13.7 10.0-14.5 % Platelet Count 225 130-400 10^3/uL Mean Platelet Volume 10.5 9.0-12.2 fL Immature Granulocyte % (Auto) 1 % Neutrophils (%) (Auto) 79 H 42-75 % Lymphocytes (%) (Auto) 14 12-44 % Monocytes (%) (Auto) 5 0-12 % Eosinophils (%) (Auto) 1 0-10 % Basophils (%) (Auto) 0 0-10 % Neutrophils # (Auto) 8.5 H 1.8-7.8 10^3/uL Lymphocytes # (Auto) 1.5 1.0-4.0 10^3/uL Monocytes # (Auto) 0.6 0.0-1.0 10^3/uL Eosinophils # (Auto) 0.1 0.0-0.3 10^3/uL Basophils # (Auto) 0.0 0.0-0.1 10^3/uL Immature Granulocyte # (Auto) 0.1 0.0-0.1 10^3/uL Prothrombin Time 14.1 12.2-14.7 SEC INR Comment 1.1 0.8-1.4 Activated Partial Thromboplast Time 34 24-35 SEC Sodium Level 137 135-145 MMOL/L Potassium Level 3.8 3.6-5.0 MMOL/L Chloride Level 106 98-107 MMOL/L Carbon Dioxide Level 21 21-32 MMOL/L Anion Gap 10 5-14 MMOL/L Blood Urea Nitrogen 5 L 7-18 MG/DL Creatinine 0.73 0.60-1.30 MG/DL Estimat Glomerular Filtration Rate 117 BUN/Creatinine Ratio 7 Glucose Level 79 70-105 MG/DL Calcium Level 9.3 8.5-10.1 MG/DL Corrected Calcium 9.2 8.5-10.1 MG/DL Total Bilirubin 0.8 0.1-1.0 MG/DL Aspartate Amino Transf (AST/SGOT) 11 5-34 U/L Alanine Aminotransferase (ALT/SGPT) 6 0-55 U/L Alkaline Phosphatase 38 L 40-136 U/L Total Protein 6.7 6.4-8.2 GM/DL Albumin 4.1 3.2-4.5 GM/DL Monoscreen NEGATIVE NEGATIVE My Orders Orders - NELLY ESTRELLA MD Cbc And Automated Diff (03/23/23 13:58) Comprehensive Metabolic Panel (03/23/23 13:58) Protime With Inr (03/23/23 13:58) Partial Thromboplastin Time (03/23/23 13:58) Ed Iv/Invasive Line Start (03/23/23 13:58) Monotest (03/23/23 14:23) Vital Signs/I&O 03/23/23 03/23/23 13:14 15:38 Temp 36.9 Pulse 71 77 Resp 14 12 B/P (MAP) 104/61 (75) 101/66 Pulse Ox 100 O2 Delivery Room Air Room Air Capillary Refill : Blood Pressure Mean: 75 Progress Note : Progress Note Labs were obtained, reviewed and interpreted by me. CBC and CMP were negative for any clinically relevant abnormalities. [place] screen was negative. Coag panel was negative. There was no bleeding on exam. Exact cause of bleeding is uncertain but may simply be due to irritation from associated vomiting. Rx for antacid therapy was provided and discharge instructions discussed. She should seek endoscopy if controlling vomiting, dietary changes, and antacid therapy do not resolve the hematemesis. Departure Impression Primary Impression: Hematemesis Qualified Codes: K92.0 - Hematemesis Additional Impression: Qualified Codes: Z3A.08 - 8 weeks gestation of Disposition: 01 HOME, SELF-CARE Condition: Stable Departure-Patient Inst. Decision time for Depature: 15:27 Referrals: KIKA CRABTREE APRN (PCP/Family) Primary Care Physician Patient Instructions: Nausea and Vomiting of Add. Discharge Instructions: Start taking Pepcid (famotidine) twice daily. If you do not have resolution of the vomiting blood within a few days, start the Prevacid (lansoprazole) as well. Follow-up with your primary care provider soon as possible to discuss this issue. If you do not have resolution within the next couple of weeks after starting treatment, you may need endoscopy (camera scoping of your stomach and esophagus). Avoid the following: Eating large meals, eating close to bedtime, caffeine, carbonation, chocolate, citrus fruits and juices, tomato products, alcohol, tobacco, spicy foods, fatty/greasy foods, NSAID medications such as ibuprofen or naproxen, mints, or anything else you know irritate your stomach. You may continue using promethazine (Phenergan) for nausea and vomiting. Taking a dose before bedtime may help prevent you from vomiting in the morning. Please be advised this medication may cause drowsiness, so use with caution. Return to the emergency room if you have worsening symptoms despite following these instructions. All discharge instructions reviewed with patient and/or family. Voiced understanding. Scripts Lansoprazole (Lansoprazole) 15 Mg Capsule.dr 15 MG PO DAILY, #30 CAP Prov: NELLY ESTRELLA MD 03/23/23 Famotidine (Pepcid) 20 Mg Tablet 20 MG PO BID, #60 TAB Prov: NELLY ESTRELLA MD 03/23/23 Copy Copies To 1: [facility]/NELLY VARGAS MD Mar 23, 2023 13:42
[2023-03-23 14:13] LABS: BASOPHILS % (AUTO) 0 % (0-10); EOSINOPHILS # (AUTO) 0.1 10^3/uL (0.0-0.3); EOSINOPHILS % (AUTO) 1 % (0-10); HEMATOCRIT 37 % (35-52); HEMOGLOBIN 12.4 g/dL (11.5-16.0); LYMPHOCYTES # (AUTO) 1.5 10^3/uL (1.0-4.0); LYMPHOCYTES % (AUTO) 14 % (12-44); MEAN CORPUSCULAR HEMOGLOBIN 29 pg (25-34); MEAN CORPUSCULAR HGB CONC 33 g/dL (32-36); MEAN CORPUSCULAR VOLUME 87 fL (80-99); MEAN PLATELET VOLUME 10.5 fL (9.0-12.2); MONOCYTES # (AUTO) 0.6 10^3/uL (0.0-1.0); MONOCYTES % (AUTO) 5 % (0-12); NEUTROPHILS # (AUTO) 8.5 10^3/uL (1.8-7.8); NEUTROPHILS % (AUTO) 79 % (42-75); PLATELET COUNT 225 10^3/uL (130-400); WHITE BLOOD COUNT 10.8 10^3/uL (4.3-11.0)
[2023-03-23 14:26] LABS: ALBUMIN 4.1 GM/DL (3.2-4.5); INR 1.1 (0.8-1.4); POTASSIUM 3.8 MMOL/L (3.6-5.0); PROTHROMBIN TIME PATIENT 14.1 SEC (12.2-14.7)
[2023-03-23 14:27] LABS: CALCIUM 9.3 MG/DL (8.5-10.1)
[2023-03-23 14:28] LABS: TOTAL PROTEIN 6.7 GM/DL (6.4-8.2)
[2023-03-23 14:30] LABS: BILIRUBIN,TOTAL 0.8 MG/DL (0.1-1.0)
[2023-03-23 14:32] LABS: CREATININE SERUM 0.73 MG/DL (0.60-1.30)
[2023-03-23] MEDS ORDERED: FAMO-119 PO (15:31)
[2023-03-23] MEDS ORDERED: LANS15CA5 PO (15:31)
[2023-03-23 15:38] VITALS: BP 101/66
== END 2023-03-23 15:36 | disposition home or self-care (01) ==
LOC: EDUNIT# 13:09 → ER 13:11
DX: O21.8 Other vomiting complicating pregnancy (principal); O99.331 Smoking (tobacco) complicating pregnancy, first trimester; K92.0 Hematemesis; F17.210 Nicotine dependence, cigarettes, uncomplicated; F17.290 Nicotine dependence, other tobacco product, uncomplicated; Z3A.08 8 weeks gestation of pregnancy
CPT/HCPCS: 36415; 80053; 85025; 85610; 85730; 86308

== ENCOUNTER 2023-04-15 15:59 | Emergency (ER) | payer MEDICAID ==
[~2023-04-15] VITALS: Ht 175.2 cm; Wt 77.1 kg
[~2023-04-15 15:59] MED LIST changes: +FAMO-119 PO; +LANS15CA5 PO
--- NOTE | 2023-04-15 16:29 | ED GU-Female ---
General Chief Complaint: OB < 20 WEEKS Stated Complaint: CRAMPING - 12 WEEKS PREG Nursing Triage Note: PT AMB TO RM 6 WITH CC OF LOWER ABD CRAPING X 30-45 MIN. PT REPORTS IS APPROX 12 WEEKS PREG. DENIES NASUA, VOMITING, DIARRHEA AND VAG BLEEDING. Source: patient Exam Limitations: no limitations (PAOLA PATTON APRN) History of Present Illness Date Seen by Provider: Apr 15, 2023 Time Seen by Provider: 16:01 Initial Comments 27-year-old G3, P1 female at 12 weeks 1 day gestation presents to the ER with complaints of lower abdominal cramping that feels like her menstrual cycle. States that the cramping has been going on approximately 30 to 45 minutes. She reports that earlier she had 1 episode of burning with urination, states that the last time she went to the restroom it did not burn. Last bowel movement was yesterday. Does report a history of IBS. She denies fevers, nausea, vomiting, diarrhea, vaginal bleeding, discharge. Her [facility] is through [facility]. (PAOLA PATTON APRN) Allergies and Home Medications Allergies Coded Allergies: amoxicillin trihydrate (Verified Allergy, Mild, 11/12/11) ibuprofen (Unverified Adverse Reaction, Unknown, 03/24/18) Aggravates IBS Patient Home Medication List Home Medication List Reviewed: Yes (PAOLA PATTON APRN) Cephalexin (Cephalexin) 500 Mg Tablet, 500 MG PO BID Prescribed by: JENNIFER ANDREW on 02/26/23 1517 Cyclobenzaprine HCl (Cyclobenzaprine HCl) 10 Mg Tablet, 10 MG PO TID Prescribed by: JENNIFER ANDREW on 02/03/23 1525 Famotidine (Pepcid) 20 Mg Tablet, 20 MG PO BID Prescribed by: NELLY ABRAHAM on 03/23/23 1531 Hydrocodone/Acetaminophen (Hydrocodone-Acetamin 5-325 mg) 5 Mg-325 Mg Tablet, 1 TAB PO Q4H PRN for PAIN-MODERATE (5-7) Prescribed by: JENNIFER ANDREW on 02/03/23 1525 Lansoprazole (Lansoprazole) 15 Mg Capsule.dr, 15 MG PO DAILY Prescribed by: NELLY ABRAHAM on 03/23/23 1531 Metoclopramide HCl (Reglan) 10 Mg Tablet, 10 MG PO Q6H Prescribed by: JENNIFER ANDREW on 02/26/23 1515 Ondansetron (Ondansetron Odt) 4 Mg Tab.rapdis, 4 MG SL Q4H PRN for NAUSEA/VOMITING Prescribed by: JENNIFER ANDREW on 02/03/23 2204 Review of Systems Review of Systems Constitutional: see HPI (PAOLA PATTON APRN) Past Rrjesqo-Lcnnzr-Uqksjr Hx Immunizations Up To Date Tetanus Booster (TDap): Less than 5yrs First/Initial COVID19 Vaccinat: 02/08/2021-MODERNA Second COVID19 Vaccination Clint: NO Third COVID19 Vaccination Date: NO (PAOLA PATTON APRN) Seasonal Allergies Seasonal Allergies: No (PAOLA PATTON APRN) Past Medical History Surgery/Hospitalization HX: T/A ANSARI, CONSTIPATION, IBS, CHRONIC R ANKLE PAIN, ADHD Surgeries: Yes Adenoidectomy, Tonsillectomy Respiratory: No Cardiac: No Neurological: Yes Headaches /Migraines 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 Disorders: No Female 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 Disorders: Denies Sexually Transmitted Disease: No 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: No Gastrointestinal: Yes Chronic Constipation, Irritable Bowel Musculoskeletal: Yes (CHRONIC PAIN IN R ANKLE) Endocrine: No HEENT: Yes (S/P TONSILLECTOMY) Tonsilitis Cancer: No Psychosocial: Yes ADD/ADHD Integumentary: No Blood Disorders: No (PAOLA PATTON APRN) Physical Exam Vital Signs Capillary Refill : Less Than 3 Seconds (PAOLA PATTON APRN) Height, Weight, BMI Height: 5'8.00" Weight: 160lbs. oz. 72.898748yt; 25.00 BMI Method:Stated General Appearance: WD/WN, no apparent distress Neck: supple, normal inspection Cardiovascular: regular rate, rhythm Respiratory: lungs clear, normal breath sounds, no respiratory distress, no accessory muscle use Gastrointestinal: normal bowel sounds, soft, tenderness (Mild mid lower tenderness) Extremities: normal range of motion, normal inspection Neurologic/Psychiatric: alert, normal mood/affect Skin: normal color, warm/dry (PAOLA PATTON APRN) Progress/Results/Core Measures Suspected Sepsis SIRS Temperature: Pulse: 73 Respiratory Rate: 16 Laboratory Tests 04/15/23 16:24: White Blood Count 11.1H Blood Pressure 110 /59 Mean: 76 Laboratory Tests 04/15/23 16:24: Creatinine 0.70, Platelet Count 230, Total Bilirubin 0.3 (PAOLA PATTON APRN) Results/Orders Vital Signs/I&O Capillary Refill : Less Than 3 Seconds (PAOLA PATTON APRN) Blood Pressure Mean: 76 Progress Note : Progress Note Patient seen and evaluated, resting comfortably in bed, no acute distress. Based on exam and symptoms, work-up initiated including CBC, CMP, hCG, UA, OB ultrasound. IV fluids and Tylenol ordered. 1825 Labs and ultrasound reviewed. CBC grossly normal. CMP shows slightly decreased potassium 3.5, slightly elevated chloride 108. hCG 6 2840. Urinalysis shows 5-10 WBCs, negative for nitrates, leukocytes, bacteria, and protein. Ultrasound shows single live intrauterine gestation measuring 13 weeks 0 days. Small hypoechoic region which may represent a small subchorionic hemorrhage. Patient reports pain has improved after Tylenol and fluids. Patient is stable for discharge. Patient instructed to follow-up with her [facility]. Discharge instructions and return precautions provided. (PAOLA PATTON APRN) Diagnostic Imaging Diagonstic Imaging: Ultrasound Plain Films/CT/US/NM/MRI: abdomen, pelvis Comments [facility], [place] NAME: MEHRAN LUKE [facility] REC#: [id number] PT STATUS: REG ER : 1995 PHYSICIAN: PAOLA PATTON APRN ADMIT DATE: 04/15/23/ER Draft Date of Exam:04/15/23 US OB SINGLE FETUS<14 [id number] PROCEDURE: US OB SINGLE FETUS <14 WKS. TECHNIQUE: Multiple real-time grayscale images were obtained over the gravid uterus in various projections. INDICATION: , 12 weeks 4 days, vaginal bleeding, cramping. COMPARISON: 02/26/2023. FINDINGS: There is a single live intrauterine gestation. There is a small hypoechoic region adjacent to the gestational sac, which could be a small subchorionic hemorrhage measuring 2.7 cm in greatest dimension. This involves less than 10% of the gestational sac circumference. The amniotic fluid and gestational sac appear normal. The placenta appears to be developing posteriorly. heart rate measures 167 BPM. The crown-rump length is 6.5 cm corresponding with 13 weeks 0 days, with estimated date of delivery of 10/21/2023. The maternal adnexa are not well seen due to the gravid uterus. No free fluid is seen. IMPRESSION: 1. Single live intrauterine gestation measuring at 13 weeks and 0 days. 2. Small hypoechoic region adjacent to the gestational sac, may be a small subchorionic hemorrhage. Dictated on workstation # [id number] Dict: 04/15/23 172 Trans: 04/15/231728 [id number] Interpreted by: LIBORIO BUTLER MD Electronically signed by: (PAOLA PATTON APRN) Departure Impression Primary Impression: Abdominal pain affecting Disposition: 01 HOME, SELF-CARE Condition: Stable Departure-Patient Inst. Decision time for Depature: 18:27 (PAOLA PATTON APRN) Referrals: KIKA AGUILAR APRN (PCP/Family) Primary Care Physician Patient Instructions: High Potassium Diet Add. Discharge Instructions: Call [facility] tomorrow to schedule a follow-up appointment for this week. Increase potassium in your diet. Make sure you are drinking plenty of water. Return for severe abdominal pain, vaginal bleeding, or any other new, concerning, or worsening symptoms. All discharge instructions reviewed with patient and/or family. Voiced understanding. ATTENDING PHYSICIAN NOTE: I WAS PHYSICALLY PRESENT ER PHYSICIAN, BUT I WAS NOT INVOLVED IN ANY DECISION MAKING OR ANY CARE OF THIS PATIENT, AND I AM NOT COLLABORATING PHYSICIAN. (BRIANNE RUVALCABA DO) PAOLA PATTON APRN Apr 15, 2023 16:29 BRIANNE RUVALCABA DO Apr 25, 2023 05:45
[2023-04-15] MEDS ORDERED: NS IV 1000 ML 1,000 ML IV SCH (16:30)
[2023-04-15] MEDS ORDERED: ACETAMINOPHEN 500 MG TABLET PO ONE (16:30)
[2023-04-15 16:32] LABS: BASOPHILS % (AUTO) 0 % (0-10); EOSINOPHILS # (AUTO) 0.1 10^3/uL (0.0-0.3); EOSINOPHILS % (AUTO) 1 % (0-10); HEMATOCRIT 36 % (35-52); HEMOGLOBIN 11.8 g/dL (11.5-16.0); LYMPHOCYTES % (AUTO) 18 % (12-44); MEAN CORPUSCULAR HEMOGLOBIN 29 pg (25-34); MEAN CORPUSCULAR HGB CONC 33 g/dL (32-36); MEAN CORPUSCULAR VOLUME 89 fL (80-99); MEAN PLATELET VOLUME 10.5 fL (9.0-12.2); MONOCYTES # (AUTO) 0.6 10^3/uL (0.0-1.0); MONOCYTES % (AUTO) 5 % (0-12); NEUTROPHILS # (AUTO) 8.3 10^3/uL (1.8-7.8); NEUTROPHILS % (AUTO) 75 % (42-75); PLATELET COUNT 230 10^3/uL (130-400); WHITE BLOOD COUNT 11.1 10^3/uL (4.3-11.0)
[2023-04-15 16:42] LABS: BILIRUBIN,URINE NEGATIVE (NEGATIVE); CLARITY,URINE CLEAR; COLOR,URINE YELLOW; GLUCOSE, URINE (UA) NEGATIVE (NEGATIVE); KETONES,URINE NEGATIVE (NEGATIVE); LEUKOCYTE ESTERASE ,URINE NEGATIVE (NEGATIVE); NITRITE,URINE NEGATIVE (NEGATIVE); PH,URINE 7.5 (5-9); PROTEIN,URINE NEGATIVE (NEGATIVE)
[2023-04-15 16:43] LABS: BACTERIA,URINE NEGATIVE /HPF
[2023-04-15 16:44] LABS: ALBUMIN 3.9 GM/DL (3.2-4.5); POTASSIUM 3.5 MMOL/L (3.6-5.0)
[2023-04-15 16:46] LABS: CALCIUM 8.8 MG/DL (8.5-10.1)
[2023-04-15 16:47] LABS: TOTAL PROTEIN 6.7 GM/DL (6.4-8.2)
[2023-04-15 16:49] LABS: BILIRUBIN,TOTAL 0.3 MG/DL (0.1-1.0)
[2023-04-15 16:50] LABS: CREATININE SERUM 0.7 MG/DL (0.60-1.30)
--- NOTE | 2023-04-15 17:30 | Diagnostic Imaging Report ---
PROCEDURE: US OB SINGLE FETUS <14 WKS. TECHNIQUE: Multiple real-time grayscale images were obtained over the gravid uterus in various projections. INDICATION: , 12 weeks 4 days, vaginal bleeding, cramping. COMPARISON: 02/26/2023. FINDINGS: There is a single live intrauterine gestation. There is a small hypoechoic region adjacent to the gestational sac, which could be a small subchorionic hemorrhage measuring 2.7 cm in greatest dimension. This involves less than 10% of the gestational sac circumference. The amniotic fluid and gestational sac appear normal. The placenta appears to be developing posteriorly. heart rate measures 167 BPM. The crown-rump length is 6.5 cm corresponding with 13 weeks 0 days, with estimated date of delivery of 10/21/2023. The maternal adnexa are not well seen due to the gravid uterus. No free fluid is seen. IMPRESSION: 1. Single live intrauterine gestation measuring at 13 weeks and 0 days. 2. Small hypoechoic region adjacent to the gestational sac, may be a small subchorionic hemorrhage. Dictated by: Dictated on workstation # [id number]
[2023-04-15 18:35] VITALS: BP 116/72
== END 2023-04-15 18:35 | disposition home or self-care (01) ==
LOC: EDUNIT# 15:59 → ER 16:01
DX: O26.891 Other specified pregnancy related conditions, first trimester (principal); R10.30 Lower abdominal pain, unspecified; Z3A.13 13 weeks gestation of pregnancy
CPT/HCPCS: 36415; 76801; 80053; 81000; 84702; 85025; 87088; 96360